=== PATIENT | male | born 1995 | race Caucasian/White ===

== ENCOUNTER 2017-08-14 16:31 | Emergency (ER) | payer OTHER ==
--- NOTE | 2017-08-14 17:24 | EDPHYS ---
Physician Documentation [facility] Name: Pedro Wright Age: 22 yrs Sex: Male : 1995 Arrival Date: 08/14/2017 Time: 16:34 Bed 9 Private MD: Jaspal Crouch B ED Physician Jared Rudolph HPI: 08/14 17:15 This 22 yrs old Male presents to ER via Ambulatory with complaints of Male pm1 problems. 17:15 The patient presents with Rash to penis. Onset: The symptoms/episode began/occurred 5 pm1 day(s) ago. Modifying factors: The symptoms are alleviated by nothing, the symptoms are aggravated by nothing. Associated signs and symptoms: Pertinent negatives: abdominal pain, dysuria, fever, penile discharge. The patient has not experienced similar symptoms in the past. The patient has not recently seen a physician. Patient with same sexual partner. Patient shaved pubic hairs 7 days ago. Reports 5 total blisters present to shaft of penis that appeared 5 days ago. Blisters painful and appeared like pimples with clear fluid when they broke. Historical: - Allergies: 16:42 No Known Allergies; aj - Home Meds: 16:42 None [Active]; aj - PMHx: 16:42 None; aj - PSHx: 16:42 Ear SX; aj - Immunization history:: Adult Immunizations up to date. - Social history:: Smoking status: Patient uses tobacco products, smokes one pack cigarettes per day. ROS: 17:15 Constitutional: Negative for fever, chills, and weight loss, Eyes: Negative for injury, pm1 pain, redness, and discharge, ENT: Negative for injury, pain, and discharge, Neck: Negative for injury, pain, and swelling, Cardiovascular: Negative for chest pain, palpitations, and edema, Respiratory: Negative for shortness of breath, cough, wheezing, and pleuritic chest pain, Abdomen/GI: Negative for abdominal pain, nausea, vomiting, diarrhea, and constipation, Back: Negative for injury and pain. 17:15 MS/Extremity: Negative for injury and deformity, Skin: Negative for injury, rash, and discoloration, Neuro: Negative for headache, weakness, numbness, tingling, and seizure. 17:15 : Positive for blisters to penis, Negative for urinary symptoms, burning with urination, penile discharge, testicular pain Exam: 17:15 Constitutional: This is a well developed, well nourished patient who is awake, alert, pm1 and in no acute distress. Head/Face: Normocephalic, atraumatic. Chest/axilla: Normal chest wall appearance and motion. Nontender with no deformity. No lesions are appreciated. Cardiovascular: Regular rate and rhythm with a normal S1 and S2. No gallops, murmurs, or rubs. Normal PMI, no JVD. No pulse deficits. Respiratory: Lungs have equal breath sounds bilaterally, clear to auscultation and percussion. No rales, rhonchi or wheezes noted. No increased work of breathing, no retractions or nasal flaring. Back: No spinal tenderness. No costovertebral tenderness. Full range of motion. Skin: Warm, dry with normal turgor. Normal color with no rashes, no lesions, and no evidence of cellulitis. MS/ Extremity: Pulses equal, no cyanosis. Neurovascular intact. Full, normal range of motion. 17:15 : Male external genitalia: ulceration, of the shaft of penis is present, that is small, without appreciated drainage, 5 crusted small circular lesions, Sexual behavior: the patient is sexually active, and reports a single partner. 17:15 Neuro: Orientation: is normal, Motor: is normal, moves all fours, Gait: is steady, at a normal pace, without difficulty. Vital Signs: 16:42 BP 138 / 75; Pulse 109; Resp 20; Temp 98.4; Pulse Ox 98% on R/A; Weight 90.72 kg; aj Height 5 ft. 11 in. (180.34 cm); 16:42 Body Mass Index 27.89 (90.72 kg, 180.34 cm) aj MDM: 17:05 Patient medically screened. [facility] 17:15 Data reviewed: vital signs. Data interpreted: Pulse oximetry: on room air is 98 %. pm1 Interpretation: normal. Counseling: I had a detailed discussion with the patient and/or guardian regarding: the historical points, exam findings, and any diagnostic results supporting the discharge/admit diagnosis, the need for outpatient follow up, a family practitioner, STD clinic, to return to the emergency department if symptoms worsen or persist or if there are any questions or concerns that arise at home. Administered Medications: No medications were administered Disposition: 08/14/17 17:23 Discharged to Home. 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 - Condition is Stable. - Discharge Instructions: Genital Herpes, Sexually Transmitted Disease. - Prescriptions for Acyclovir 400 mg Oral Tablet - take 1 tablet by ORAL route every 8 hours; 30 tablet. Tylenol- Codeine #3 300-30 mg Oral Tablet - take 2 tablets by ORAL route every 6 hours As needed; 20 tablet. - Medication Reconciliation Form, Thank You Letter, Antibiotic Education, Prescription Opioid Use form. - Follow up: Emergency Department; When: As needed; Reason: Worsening of condition. Follow up: Private Physician; When: 2 - 3 days; Reason: Recheck today's complaints, Continuance of care, Re-evaluation by your physician. - Problem is new. - Symptoms have improved. Addendum: 08/17/2017 08:49 Co-signature as Attending Physician, Jared Rudolph MD I agree with the assessment and c velasquez plan of care. Signatures: Laura Henry, RN Jared Grier MD MD cha Marinas, Patrick, GINGER BEHAVIORAL THERAPY COORDINATOR pm1 Santo Quintero RN RN mb3 Corrections: (The following items were deleted from the chart) 08/14 17:36 17:23 08/14/2017 17:23 Discharged to Home. Impression: Herpesviral infection of other mb3 male genital organs. Condition is Stable. Forms are Medication Reconciliation Form, Thank You Letter, Antibiotic Education, Prescription Opioid Use. Follow up: Emergency Department; When: As needed; Reason: Worsening of condition. Follow up: Private Physician; When: 2 - 3 days; Reason: Recheck today's complaints, Continuance of care, Re-evaluation by your physician. Problem is new. Symptoms have improved. pm1
--- NOTE | 2017-08-14 17:24 | ER ---
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 aj Transition of care: patient was not received from another setting of care. Onset of symptoms was August 12, 2017. Care prior to arrival: None. 16:41 Method Of Arrival: Ambulatory 16:41 Acuity: PEDRO 4 aj 17:35 Initial Sepsis Screen: Does the patient meet any 2 criteria? No. Patient's initial mb3 sepsis screen is negative. Does the patient have a suspected source of infection? No. Patient's initial sepsis screen is negative. Triage Assessment: 16:42 General: Appears in no apparent distress. comfortable, Behavior is calm, cooperative, aj appropriate for age. Pain: Complains of pain in head of penis. Neuro: Level of Consciousness is awake, alert, obeys commands, Oriented to person, place, time, situation, Appropriate for age. Respiratory: Airway is patent Respiratory effort is even, unlabored, Respiratory pattern is regular, symmetrical. Derm: Skin is intact, is healthy with good turgor, Skin is pink, warm \T\ dry. normal. 16:42 : Reports rash to penis. Derm:. aj Historical: - Allergies: 16:42 No Known Allergies; aj - Home Meds: 16:42 None [Active]; aj - PMHx: 16:42 None; aj - PSHx: 16:42 Ear SX; aj - Immunization history:: Adult Immunizations up to date. - Social history:: Smoking status: Patient uses tobacco products, smokes one pack cigarettes per day. Screenin:34 Abuse screen: Denies threats or abuse. Nutritional screening: No deficits noted. mb3 Tuberculosis screening: No symptoms or risk factors identified. Fall Risk None identified. Assessment: 17:32 General: Appears in no apparent distress. comfortable, Behavior is calm, cooperative, mb3 appropriate for age. Pain: Complains of pain in head of penis Pain currently is 4 out of 10 on a pain scale. Neuro: No deficits noted. Cardiovascular: No deficits noted. Respiratory: No deficits noted. GI: No deficits noted. No signs and/or symptoms were reported involving the gastrointestinal system. : Blisters noted Lesions noted. Vital Signs: 16:42 BP 138 / 75; Pulse 109; Resp 20; Temp 98.4; Pulse Ox 98% on R/A; Weight 90.72 kg; aj Height 5 ft. 11 in. (180.34 cm); 16:42 Body Mass Index 27.89 (90.72 kg, 180.34 cm) ED Course: 16:34 Patient arrived in ED. mr 16:35 Jaspal Crouch MD is Private Physician. mr 16:41 Triage completed. aj 16:42 Arm band placed on right wrist. Patient placed in waiting room, Patient notified of wait time. 16:58 Santo Quintero RN is Primary Nurse. mb3 17:05 Po Quiles NP is PHCP. pm1 17:05 Jared Rudolph MD is Attending Physician. pm1 17:35 Patient has correct armband on for positive identification. Bed in low position. Call mb3 light in reach. 17:35 No provider procedures requiring assistance completed. Patient did not have IV access mb3 during this emergency room visit. Administered Medications: No medications were administered Outcome: 17:23 Discharge ordered by . pm1 17:35 Discharged to home ambulatory. mb3 17:35 Condition: stable 17:35 Discharge instructions given to patient, Instructed on discharge instructions, follow up and referral plans. medication usage, Demonstrated understanding of instructions, follow-up care, medications, Prescriptions given X 2. 17:36 Patient left the ED. mb3 Signatures: Laura Henry, Clover Bassett RN mr Po Quiles, GINGER C WEB DEVELOPER pm1 Santo Quintero RN RN mb3
== END 2017-08-14 17:36 | disposition home or self-care (01) ==
LOC: ER 16:31
DX: A60.02 Herpesviral infection of other male genital organs (principal); F17.210 Nicotine dependence, cigarettes, uncomplicated
CPT/HCPCS: 99282

== ENCOUNTER 2017-08-28 07:31 | Observation (INO) | payer OTHER ==
[2017-08-28] MEDS ORDERED: MORPHINE 4 MG/ML SYR ONE (07:45)
[2017-08-28] MEDS ORDERED: NA CHLORIDE 0.9% 1,000 ML ONE (07:45)
[2017-08-28] MEDS ORDERED: ONDANSETRON 4 MG/2 ML VIAL ONE ×2 (07:46→12:21)
[2017-08-28 08:08] LABS: Absolute Lymphocytes (CBC) 1.5 K/uL (0.7-4.9); Absolute Monocytes 0.9 K/uL (0.1-1.3); Absolute Neutrophil 14.5 K/uL (1.8-8.0); Eosinophils % 1.3 % (0-4.4); Lymphocytes % 8.4 % (15.3-44.8); MCH 29.8 pg (27.0-35.0); MCV 85.6 fL (80-100); MPV 9.6 fL (7.6-11.3); Monocytes % 5.1 % (3.3-12.3); RBC Red Blood Cell Count 5.73 M/uL (4.33-5.43)
[2017-08-28 08:25] LABS: Albumin 4.8 g/dL (3.2-5.5); Bilirubin Direct 0.1 mg/dL (0-0.2); Bilirubin Total 0.6 mg/dL (0.3-1.2); Protein, Total 8.7 g/dL (6.0-8.3)
--- NOTE | 2017-08-28 09:06 | RAD REPORT ---
EXAM DESCRIPTION: CT - Abdomen Pelvis W Contrast - 08/28/2017 8:46 am CLINICAL HISTORY: Abdominal pain, nausea vomiting and diarrhea COMPARISON: CT study May 2007 TECHNIQUE: Biphasic, helical CT imaging of the abdomen and pelvis was performed following 100 ml non -ionic IV contrast. No oral contrast was given. All CT scans are performed using dose optimization technique as appropriate and may include automated exposure control or mA/KV adjustment according to patient size. FINDINGS: No suspicious findings in the lung bases. The liver, spleen, and pancreas show no suspicious findings. Gallbladder and biliary tree are also wi thout suspicious finding. Symmetric renal function is seen with no hydronephrosis or suspicious renal mass. No adrenal abnormal ity. Urinary bladder shows no suspicious findings. Prostate gland and seminal vesicles normal range. Fluid-filled stomach is present normal in size. No wall thickening or mass. Duodenum and jejunum show no suspicious findings. There are prominent loops of proximal ileum distended to 2.6 cm. Long segmen t of distal ileum and terminal ileum show fecalized bowel content with mild wall thickening. Minimal amount of fluid is seen near the terminal ileum extending into the lower right pelvis. The appendix i s normal. Guido of the involved terminal ileum are slightly thickened. No primary colon process ident ified. No free air or pneumatosis. No hernia, mass or bulky lymphadenopathy. No suspicious bony findings. IMPRESSION: Nonspecific ileitis pattern. There are distended proximal loops of ileum with long segme nt of distal ileum/ terminal ileum showing fecalized bowel content, wall thickening and adjacent mohsen atous/ inflammatory stranding. The appendix is normal and no primary colon, jejunum, duodenum or stomach process seen.
--- NOTE | 2017-08-28 09:26 | EDPHYS ---
Physician Documentation [facility] Name: Pedro Wright Age: 22 yrs Sex: Male : 1995 Arrival Date: 08/28/2017 Time: 07:35 Bed 14 Private MD: Jaspal Crouch B ED Physician Aaron Silver HPI: 08/28 07:42 This 22 yrs old Male presents to ER via Unassigned with complaints of kb Abdominal Pain, Vomiting. 07:42 The patient presents with abdominal pain that is diffuse. Onset: The symptoms/episode kb began/occurred yesterday. The symptoms do not radiate. Associated signs and symptoms: Pertinent positives: nausea, vomiting, and diarrhea, Pertinent negatives: anorexia, blood in stools, chest pain, constipation, dysuria, fever, headache, hematuria, palpitations, shortness of breath, testicular pain, vomiting blood. The symptoms are described as achy. Modifying factors: The symptoms are alleviated by nothing, the symptoms are aggravated by nothing. Severity of pain: At its worst the pain was moderate in the emergency department the pain is unchanged. The patient has not experienced similar symptoms in the past. The patient has not recently seen a physician. Historical: - Allergies: 07:44 NKA; iw - Home Meds: 07:44 None [Active]; iw - PMHx: 07:44 None; iw - PSHx: 07:44 Ear SX; iw - Immunization history:: Adult Immunizations unknown. - Social history:: Smoking status: Patient/guardian denies using tobacco. - Ebola Screening: : No symptoms or risks identified at this time. ROS: 07:42 Constitutional: Negative for fever, chills, and weight loss, ENT: Negative for injury, kb pain, and discharge, Neck: Negative for injury, pain, and swelling, Cardiovascular: Negative for chest pain, palpitations, and edema, Respiratory: Negative for shortness of breath, cough, wheezing, and pleuritic chest pain, Back: Negative for injury and pain, : Negative for injury, bleeding, discharge, and swelling, MS/Extremity: Negative for injury and deformity, Skin: Negative for injury, rash, and discoloration, Neuro: Negative for headache, weakness, numbness, tingling, and seizure. 07:42 Abdomen/GI: Positive for abdominal pain, nausea, vomiting, and diarrhea, Negative for constipation, abdominal cramps, abdominal distension, anorexia. Exam: 07:42 Constitutional: This is a well developed, well nourished patient who is awake, alert, kb and in no acute distress. Head/Face: Normocephalic, atraumatic. Chest/axilla: Normal chest wall appearance and motion. Nontender with no deformity. No lesions are appreciated. Cardiovascular: Regular rate and rhythm with a normal S1 and S2. No gallops, murmurs, or rubs. Normal PMI, no JVD. No pulse deficits. Respiratory: Lungs have equal breath sounds bilaterally, clear to auscultation and percussion. No rales, rhonchi or wheezes noted. No increased work of breathing, no retractions or nasal flaring. Back: No spinal tenderness. No costovertebral tenderness. Full range of motion. Skin: Warm, dry with normal turgor. Normal color with no rashes, no lesions, and no evidence of cellulitis. MS/ Extremity: Pulses equal, no cyanosis. Neurovascular intact. Full, normal range of motion. Neuro: Awake and alert, GCS 15, oriented to person, place, time, and situation. Cranial nerves II-XII grossly intact. Motor strength 5/5 in all extremities. Sensory grossly intact. Cerebellar exam normal. Normal gait. 07:42 Abdomen/GI: Inspection: abdomen appears normal, Bowel sounds: normal, in all quadrants, Palpation: soft, in all quadrants, moderate abdominal tenderness, in all quadrants. Vital Signs: 07:44 BP 146 / 90; Pulse 94; Resp 18 S; Temp 97.8; Pulse Ox 100% on R/A; Weight 90.72 kg; iw Height 5 ft. 11 in. (180.34 cm); Pain 9/10; 08:48 BP 148 / 87; Pulse 74; Resp 18; Pulse Ox 99% on R/A; Pain 4/10; ph 12:05 BP 141 / 81; Pulse 73; Resp 19; Pulse Ox 99% on R/A; aj 07:44 Body Mass Index 27.89 (90.72 kg, 180.34 cm) iw MDM: 07:37 Patient medically screened. kb 07:42 Data reviewed: vital signs, nurses notes. Data interpreted: Pulse oximetry: on room air kb is 100 %. Interpretation: normal. 09:23 Counseling: I had a detailed discussion with the patient and/or guardian regarding: the kb historical points, exam findings, and any diagnostic results supporting the discharge/admit diagnosis, lab results, radiology results, the need for further work-up and treatment in the hospital. 08/28 07:41 Order name: Amylase, Serum; Complete Time: 08:28 kb 08/28 07:41 Order name: Basic Metabolic Panel; Complete Time: 08:28 kb 08/28 07:41 Order name: CBC with Diff; Complete Time: 08:28 kb 08/28 07:41 Order name: Hepatic Function; Complete Time: 08:28 kb 08/28 07:41 Order name: Lipase; Complete Time: 08:28 kb 08/28 09:29 Order name: Blood Culture Adult (2) kb 08/28 07:41 Order name: IV Saline Lock; Complete Time: 08:01 kb 08/28 07:41 Order name: CT Abd/Pelvis - W/Contrast; Complete Time: 09:17 kb 08/28 07:41 Order name: Labs collected and sent; Complete Time: 08:01 kb Administered Medications: 07:55 Drug: NS 0.9% 1000 ml Route: IV; Rate: 1000 ml; Site: right antecubital; ph 12:15 Follow up: Response: No adverse reaction; IV Status: Completed infusion; IV Intake: aj 1000ml 07:55 Drug: Zofran 4 mg Route: IVP; Site: right antecubital; ph 12:14 Follow up: Response: No adverse reaction aj 12:15 Follow up: Response: No adverse reaction aj 07:55 Drug: morphine 4 mg Route: IVP; Site: right antecubital; ph 12:13 Follow up: Response: Pain is decreased aj 10:00 Drug: Nicotine 21 mg/24 hr 1 patches Route: Transdermal; Site: affected area; aj 10:05 Drug: Cipro 400 mg Volume: 200 ml; Route: IVPB; Infused Over: 60 mins; Site: right aj antecubital; 12:14 Follow up: Response: No adverse reaction; IV Status: Completed infusion; IV Intake: aj 200ml 10:06 Drug: Flagyl 500 mg Volume: 100 ml; Route: IVPB; Rate: 200 ml/hr; Infused Over: 30 aj mins; Site: right antecubital; 12:15 Follow up: Response: No adverse reaction; IV Status: Completed infusion; IV Intake: aj 100ml Disposition: 08/28/17 09:25 Hospitalization ordered by Buck Crabtree for Observation. Preliminary diagnosis are Generalized abdominal pain - ileitis, Nausea with vomiting, unspecified. - Bed requested for Telemetry/MedSurg (observation). - Status is Observation. aj - Condition is Stable. - Problem is new. - Symptoms are unchanged. UTI on Admission? No Addendum: 09/01/2017 07:14 Co-signature as Attending Physician, Aaron Silver MD. g s Signatures: Dispatcher [employer] EDMS Salma Mcfarland, TECHNICAL SOLUTION ARCHITECT-C TECHNICAL SOLUTION ARCHITECT-Ckb Brianna Beckman, RN RN Laura Swift, RN Genoveva Gomez, RN BENSON Missy Caldera, RN RN mavis Silver, MD WAN Walker Corrections: (The following items were deleted from the chart) 08/28 11:33 09:25 Hospitalization Ordered by Buck Crabtree DO for Observation. Preliminary dw diagnosis is Generalized abdominal pain - ileitis; Nausea with vomiting, unspecified. Bed requested for Telemetry/MedSurg (observation). Status is Observation. Condition is Stable. Problem is new. Symptoms are unchanged. UTI on Admission? No. kb 12:24 11:33 08/28/2017 09:25 Hospitalization Ordered by Buck Crabtree DO for Observation. aj Preliminary diagnosis is Generalized abdominal pain - ileitis; Nausea with vomiting, unspecified. Bed requested for Telemetry/MedSurg (observation). Status is Observation. Condition is Stable. Problem is new. Symptoms are unchanged. UTI on Admission? No. dw
--- NOTE | 2017-08-28 09:26 | ER ---
Nurse's Notes [facility] Name: Pedro Wright Age: 22 yrs Sex: Male : 1995 Arrival Date: 08/28/2017 Time: 07:35 Bed 14 Private MD: Jaspal Crouch B Diagnosis: Generalized abdominal pain-ileitis;Nausea with vomiting, unspecified Presentation: 08/28 07:40 Presenting complaint: Patient states: has had abd pain, nausea, vomiting, diarrhea iw since last night. Transition of care: patient was not received from another setting of care. Onset of symptoms was August 27, 2017. Risk Assessment: Do you want to hurt yourself or someone else? Patient reports no desire to harm self or others. Initial Sepsis Screen: Does the patient meet any 2 criteria? No. Patient's initial sepsis screen is negative. Does the patient have a suspected source of infection? No. Patient's initial sepsis screen is negative. Care prior to arrival: None. 07:40 Method Of Arrival: Ambulatory iw 07:40 Acuity: PEDRO 3 iw Historical: - Allergies: 07:44 NKA; iw - Home Meds: 07:44 None [Active]; iw - PMHx: 07:44 None; iw - PSHx: 07:44 Ear SX; iw - Immunization history:: Adult Immunizations unknown. - Social history:: Smoking status: Patient/guardian denies using tobacco. - Ebola Screening: : No symptoms or risks identified at this time. Screenin:57 Abuse screen: Denies threats or abuse. Denies injuries from another. Nutritional ph screening: No deficits noted. Tuberculosis screening: No symptoms or risk factors identified. Fall Risk None identified. Assessment: 07:52 General: Appears in no apparent distress. uncomfortable, slender, Behavior is ph cooperative, anxious, Denies fever. Pain: Complains of pain in right lower quadrant and left lower quadrant Pain currently is 8 out of 10 on a pain scale. Quality of pain is described as sharp, stabbing, Pain began "last night". Neuro: Level of Consciousness is awake, alert, obeys commands, Oriented to person, place, time, situation. Cardiovascular: Capillary refill < 3 seconds Patient's skin is warm and dry. Respiratory: Airway is patent Respiratory effort is even, unlabored, Respiratory pattern is regular, symmetrical. GI: Abdomen is flat, non-distended, Bowel sounds present X 4 quads. Abd is soft X 4 quads Abdomen is tender to palpation X 4 quads. Reports lower abdominal pain, diarrhea, nausea, vomiting. : No signs and/or symptoms were reported regarding the genitourinary system. Derm: Skin is intact, is healthy with good turgor, Skin is pink, warm \\T\\ dry. Musculoskeletal: Circulation, motion, and sensation intact. Range of motion: intact in all extremities. 08:47 Reassessment: Patient appears in no apparent distress at this time. Patient and/or ph family updated on plan of care and expected duration. Pain level reassessed. Patient is alert, oriented x 3, equal unlabored respirations, skin warm/dry/pink. Pt reports that pain has improved to 4/10 after pain medication, denies nausea at this time, taken for CT via wheelchair, family at bedside. 10:07 General: Appears in no apparent distress. comfortable, Behavior is calm, cooperative, aj appropriate for age. Pain: Complains of pain in left lower quadrant and right lower quadrant. Neuro: Level of Consciousness is awake, alert, obeys commands, Oriented to person, place, time, situation. Respiratory: Airway is patent Respiratory effort is even, unlabored, Respiratory pattern is regular, symmetrical. GI: Abdomen is flat, non-distended, Reports lower abdominal pain, diarrhea, nausea. Derm: Skin is intact, is healthy with good turgor, Skin is pink, warm \\T\\ dry. normal. Vital Signs: 07:44 BP 146 / 90; Pulse 94; Resp 18 S; Temp 97.8; Pulse Ox 100% on R/A; Weight 90.72 kg; iw Height 5 ft. 11 in. (180.34 cm); Pain 9/10; 08:48 BP 148 / 87; Pulse 74; Resp 18; Pulse Ox 99% on R/A; Pain 4/10; ph 12:05 BP 141 / 81; Pulse 73; Resp 19; Pulse Ox 99% on R/A; aj 07:44 Body Mass Index 27.89 (90.72 kg, 180.34 cm) iw ED Course: 07:35 Patient arrived in ED. sb2 07:35 Jaspal Crouch MD is Private Physician. sb2 07:37 Salma Mcfarland FNP-C is PHCP. kb 07:37 Aaron Silver MD is Attending Physician. kb 07:42 Triage completed. iw 07:44 Arm band placed on. iw 07:52 Missy Caldera, RN is Primary Nurse. ph 07:57 Initial lab(s) drawn, by me, sent to lab. Inserted saline lock: 20 gauge in right ph antecubital area, using aseptic technique. Blood collected. 07:58 Patient has correct armband on for positive identification. Placed in gown. Bed in low ph position. Pulse ox on. NIBP on. Warm blanket given. 08:09 Radiology exam delayed due to lab results not completed at this time. (BUN/Creatinine). eh 08:44 CT completed. Patient tolerated procedure well. Patient moved to CT via wheelchair. sj Patient moved back from CT. 08:45 CT Abd/Pelvis - W/Contrast In Process Unspecified. EDMS 09:24 Buck Crabtree DO is Hospitalizing Provider. kb 10:33 Primary Nurse role handed off by Missy Caldera, BENSON aj 10:33 Laura Henry RN is Primary Nurse. aj 12:16 No provider procedures requiring assistance completed. Patient admitted, IV remains in aj place. intact. Administered Medications: 07:55 Drug: NS 0.9% 1000 ml Route: IV; Rate: 1000 ml; Site: right antecubital; ph 12:15 Follow up: Response: No adverse reaction; IV Status: Completed infusion; IV Intake: aj 1000ml 07:55 Drug: Zofran 4 mg Route: IVP; Site: right antecubital; ph 12:14 Follow up: Response: No adverse reaction aj 12:15 Follow up: Response: No adverse reaction aj 07:55 Drug: morphine 4 mg Route: IVP; Site: right antecubital; ph 12:13 Follow up: Response: Pain is decreased aj 10:00 Drug: Nicotine 21 mg/24 hr 1 patches Route: Transdermal; Site: affected area; aj 10:05 Drug: Cipro 400 mg Volume: 200 ml; Route: IVPB; Infused Over: 60 mins; Site: right aj antecubital; 12:14 Follow up: Response: No adverse reaction; IV Status: Completed infusion; IV Intake: aj 200ml 10:06 Drug: Flagyl 500 mg Volume: 100 ml; Route: IVPB; Rate: 200 ml/hr; Infused Over: 30 aj mins; Site: right antecubital; 12:15 Follow up: Response: No adverse reaction; IV Status: Completed infusion; IV Intake: aj 100ml Intake: 12:14 IV: 200ml; Total: 200ml. aj 12:15 IV: 1000ml; Total: 1200ml. aj 12:15 IV: 100ml; Total: 1300ml. aj Outcome: 09:25 Decision to Hospitalize by Provider. kb 12:16 Discharged to home ambulatory. aj 12:16 Condition: good 12:16 Instructed on the need for admit, Demonstrated understanding of instructions. 12:24 Patient left the ED. aj Signatures: Dispatcher [employer] EDSalma Turpin, RN RADIATION-C RN RADIATION-Laura Greene, RN Casimiro Vilchis Susan sj Williams, Irene RN BENSON Missy Caldera RN BENSON Albert, Jena [email or web address]
[2017-08-28] MEDS ORDERED: NICOTINE 21 MG/PAT TD ONE (09:51)
[2017-08-28] MEDS ORDERED: CIPROFLOXACIN 400mg IV 400 MG/200 ML BAG IV ONE (09:51)
[2017-08-28] MEDS ORDERED: METRONIDAZOLE 500mg IVPB 500 MG/100 ML BAG IV ONE (09:51)
--- NOTE | 2017-08-28 10:00 | P.HP ---
Certification for Inpatient Patient admitted to: Observation With expected LOS: <2 Midnights Patient will require the following post-hospital care: None Practitioner: I am a practitioner with admitting privileges, knowledge of patient current condition, hospital course, and medical plan of care. Services: Services provided to patient in accordance with Admission requirements found in Title 42 Section 412.3 of the Code of Federal Regulations <Lit Cano - Last Filed: 08/28/17 09:55> Patient admitted to: Observation With expected LOS: <2 Midnights Patient will require the following post-hospital care: None Practitioner: I am a practitioner with admitting privileges, knowledge of patient current condition, hospital course, and medical plan of care. Services: Services provided to patient in accordance with Admission requirements found in Title 42 Section 412.3 of the Code of Federal Regulations <Buck Crabtree - Last Filed: 08/28/17 14:38> Patient History Date of Service: 08/28/17 Primary Care Provider: Miko Reason for admission: Gertrudis History of Present Illness: This is a 22 y/o M that presented to the ED with complaints of nausea, vomiting , diarrhea, and abdominal pain that started last night. Stated that he could not keep anything down. Pain persisted without relief. In room patient hemodynamically stable. WBC of 17.4. Persistent pain in ED. Pain medication given. Denies blood or mucous in stool. Denies hematemesis. Moderate Ileitis noted on CT scan without abscess or perforation. No other acute findings. Home medications list reviewed: Yes - Past Medical/Surgical History Has patient received pneumonia vaccine in the past: No Diabetic: No Past Medical History: Patient denies medical history Past Surgical History: Patient denies surgical history - Social History Smoking Status: Heavy Tobacco smoker (>10 cigarettes/day) Counseled patient to stop smoking for: less than 10 minutes Smoking therapy provided: Yes Patient receptive to therapy: No Alcohol use: No CD- Drugs: No Caffeine use: Yes Place of Residence: Home <Geni Canoshua - Last Filed: 08/28/17 09:55> Date of Service: 08/28/17 Home medications list reviewed: Yes - Past Medical/Surgical History Diabetic: No Past Medical History: Patient denies medical history Past Surgical History: Patient denies surgical history Psychosocial/ Personal History: Unremarkable. - Family History Family History: Reviewed- Non-Contributory - Family History Mother History Unknown: Yes - Social History Smoking Status: Heavy Tobacco smoker (>10 cigarettes/day) Counseled patient to stop smoking for: less than 10 minutes Smoking therapy provided: Yes Patient receptive to therapy: No Alcohol use: No CD- Drugs: No Caffeine use: Yes Place of Residence: Home <Buck Crabtree - Last Filed: 08/28/17 14:38> Allergies No Known Drug Allergies Allergy (Unverified 08/20/14 05:21) Unknown No Known Lionel Allergy (Uncoded 08/25/16 14:46) Unknown No Known Allergies Allergy (Uncoded 08/14/17 17:40) Unknown Review of Systems General: Unremarkable Eyes: Unremarkable ENT: Unremarkable Respiratory: Unremarkable Cardiovascular: Unremarkable Gastrointestinal: Nausea, Vomiting, Abdominal Pain, Diarrhea, As per HPI Genitourinary: Unremarkable Musculoskeletal: Unremarkable Integumentary: Unremarkable Neurological: Unremarkable Lymphatics: Unremarkable <Lit Cano - Last Filed: 08/28/17 09:55> Physical Examination - Vital Signs Temperature: 97.8 F Blood Pressure: 148/87 Pulse: 74 Respirations: 18 Pulse Ox (%): 99 - Physical Exam General: Alert, In no apparent distress, Oriented x3, Cooperative HEENT: Normocephalic, PERRLA, Mucous membr. moist/pink Neck: Supple, 2+ carotid pulse no bruit, JVD not distended, No Thyromegaly, No LAD Respiratory: Clear to auscultation bilaterally, Normal air movement Cardiovascular: No edema, Normal pulses, Regular rate/rhythm, Normal S1 S2, No gallops, No rubs, No murmurs Capillary refill: <2 Seconds Gastrointestinal: Normal bowel sounds, Non-distended, No ascites, Tenderness ( Moderate tenderness to mid abdomen ) Musculoskeletal: No clubbing, No swelling, No contractures, No erythema, No tenderness, No warmth Integumentary: No rashes, No breakdown, No significant lesion, No tenderness/ swelling, No erythema, No warmth, No cyanosis Neurological: Normal gait, Normal speech, Normal strength at 5/5 x4 extr, Normal tone, Sensation intact, Cranial nerves 3-12 intact, Normal reflexes 2+, Normal affect - Studies Laboratory Data (last 24 hrs) 08/28/17 07:45: WBC 17.4 H, Hgb 17.1, Hct 49.0, Plt Count 331 08/28/17 07:45: Sodium 138, Potassium 4.0, BUN 19, Creatinine 1.20, Glucose 113 , Total Bilirubin 0.6, AST 20, ALT 21, Alkaline Phosphatase 75, Amylase 35, Lipase 21 L <JosiejacoboGeni gutierrezLit - Last Filed: 08/28/17 09:55> - Studies Laboratory Data (last 24 hrs) 08/28/17 07:45: WBC 17.4 H, Hgb 17.1, Hct 49.0, Plt Count 331 08/28/17 07:45: Sodium 138, Potassium 4.0, BUN 19, Creatinine 1.20, Glucose 113 , Total Bilirubin 0.6, AST 20, ALT 21, Alkaline Phosphatase 75, Amylase 35, Lipase 21 L <Buck Crabtree - Last Filed: 08/28/17 14:38> Assessment and Plan - Problems (Diagnosis) (1) Ileitis Current Visit: Yes Status: Acute Plan: Pain management and IV antibiotics. Clear liquid diet and advance as tolerated. If patient feels better in the AM and WBC decreases and without acute abdominal findings, will send home on antibiotics and pain medication with follow to GI Discharge Plan: Home Plan to discharge in: 24 Hours - Advance Directives Does patient have a Living Will: No Does patient have a Durable POA for Healthcare: No - Code Status/Comfort Care Code Status Assessed: Yes Code Status: Full Code <Lit Cano - Last Filed: 08/28/17 09:55> - Problems (Diagnosis) (1) Tobacco abuse Current Visit: Yes Status: Chronic Plan: Will address lifestyle modification education and tobacco cessation Discharge Plan: Home Plan to discharge in: 24 Hours - Code Status/Comfort Care Code Status Assessed: Yes Code Status: Full Code Physician Review: Patient Assessed, Agree with Above Assessment and Plan Time Spent Managing Pts Care (In Minutes): 55 <Buck Crabtree - Last Filed: 08/28/17 14:38>
[2017-08-28] MEDS ORDERED: ONDANSETRON 4 MG/2 ML VIAL IV PRN (11:08)
[2017-08-28] MEDS ORDERED: HYDROCODONE/APAP 5/325 MG TAB PO PRN (11:08)
[2017-08-28] MEDS ORDERED: NA CHLORIDE 0.9% 1,000 ML IV SCH (11:08)
[2017-08-28] MEDS ORDERED: ACETAMINOPHEN 500 MG TAB PO PRN (11:08)
[2017-08-28] MEDS: Morphine 2 MG/2 ML SYR IV PRN ×2 (12:59→17:50)
[2017-08-28] MEDS: NA CHLORIDE 0.9% 1,000 ML IV SCH ×2 (15:00→22:47)
[2017-08-28] MEDS: DICYCLOMINE HCL 10 MG CAP PO SCH ×2 (15:16→20:44)
[2017-08-28] MEDS ORDERED: PROMETHAZINE 25 MG/ML VIAL IV PRN (16:42)
[2017-08-28] MEDS ORDERED: ENOXAPARIN 40 MG/0.4 ML SQ SCH (17:00)
[2017-08-28] MEDS ORDERED: PROMETHAZINE 25 MG/ML VIAL ONE (17:03)
[2017-08-28] MEDS: METRONIDAZOLE 500mg IVPB 500 MG/100 ML BAG IV SCH (17:05)
--- NOTE | 2017-08-28 17:35 | RAD REPORT ---
EXAM DESCRIPTION: RAD - Abdomen 1 View (KUB) - 08/28/2017 5:26 pm CLINICAL HISTORY: Abdominal pain, vomiting COMPARISON: CT study August 28 FINDINGS: Multiple prominent distal small bowel loops are present matching the CT study. Colon is no t dilated. No free air or pneumatosis. Contrast is present in the urinary bladder from the earlier CT study. No suspicious calcifications. No significant bony findings IMPRESSION: Prominent distal small bowel pattern matching the CT study. Ileitis remains the primary consideration. No bowel obstruction, free air or surgically emergent finding.
[2017-08-28] MEDS: CIPROFLOXACIN 400mg IV 400 MG/200 ML BAG IV SCH (20:43)
[2017-08-29] MEDS: METRONIDAZOLE 500mg IVPB 500 MG/100 ML BAG IV SCH ×2 (00:22→05:04)
[2017-08-29 05:20] LABS: Absolute Lymphocytes (CBC) 2.9 K/uL (0.7-4.9); Absolute Monocytes 0.8 K/uL (0.1-1.3); Absolute Neutrophil 6.6 K/uL (1.8-8.0); Basophils % 0.5 % (0-1.3); Eosinophils % 1.1 % (0-4.4); Hematocrit 41.9 % (39.6-49.0); Lymphocytes % 27.6 % (15.3-44.8); MCH 29.8 pg (27.0-35.0); MCV 87.9 fL (80-100); MPV 9.7 fL (7.6-11.3); Monocytes % 7.6 % (3.3-12.3); RBC Red Blood Cell Count 4.76 M/uL (4.33-5.43)
[2017-08-29 05:59] LABS: Albumin 3.4 g/dL (3.2-5.5); Bilirubin Direct 0.1 mg/dL (0-0.2); Bilirubin Total 0.7 mg/dL (0.3-1.2); Potassium 3.8 mEq/L (3.6-5.0); Protein, Total 6.2 g/dL (6.0-8.3)
[2017-08-29] MEDS: NA CHLORIDE 0.9% 1,000 ML IV SCH (07:00)
[2017-08-29] MEDS ORDERED: PANTOPRAZOLE 40MG TABLET PO SCH (07:30)
[2017-08-29] MEDS: DICYCLOMINE HCL 10 MG CAP PO SCH (09:00)
[2017-08-29] MEDS: CIPROFLOXACIN 400mg IV 400 MG/200 ML BAG IV SCH (09:10)
--- NOTE | 2017-08-29 09:46 | P.DS ---
Admission Date: 08/28/17 Discharge Date: 08/29/17 Primary Care Provider: Dr. Crouch Disposition: ROUTINE DISCHARGE Discharge Condition: GOOD Reason for Admission: Ilietis Consultations: Surgery-Dr. Campbell Procedures: CT scan: FINDINGS: No suspicious findings in the lung bases. The liver, spleen, and pancreas show no suspicious findings. Gallbladder and biliary tree are also without suspicious finding. Symmetric renal function is seen with no hydronephrosis or suspicious renal mass. No adrenal abnormality. Urinary bladder shows no suspicious findings. Prostate gland and seminal vesicles normal range. Fluid-filled stomach is present normal in size. No wall thickening or mass. Duodenum and jejunum show no suspicious findings. There are prominent loops of proximal ileum distended to 2.6 cm. Long segment of distal ileum and terminal ileum show fecalized bowel content with mild wall thickening. Minimal amount of fluid is seen near the terminal ileum extending into the lower right pelvis. The appendix is normal. Guido of the involved terminal ileum are slightly thickened. No primary colon process identified. No free air or pneumatosis. No hernia, mass or bulky lymphadenopathy. No suspicious bony findings. IMPRESSION: Nonspecific ileitis pattern. There are distended proximal loops of ileum with long segment of distal ileum/ terminal ileum showing fecalized bowel content, wall thickening and adjacent edematous/ inflammatory stranding. The appendix is normal and no primary colon, jejunum, duodenum or stomach process seen. - Problems (1) Tobacco abuse Current Visit: Yes Status: Chronic (2) Abdominal pain Current Visit: Yes Status: Acute Qualifiers: Abdominal location: epigastric Qualified Code(s): R10.13 - Epigastric pain (3) Nausea and vomiting Current Visit: Yes Status: Acute Qualifiers: Vomiting type: unspecified Vomiting Intractability: unspecified Qualified Code(s): R11.2 - Nausea with vomiting, unspecified (4) Ileitis Current Visit: Yes Status: Acute (5) Dehydration Current Visit: Yes Status: Acute Brief History of Present Illness: 22-year-old male present emergency room with abdominal pain, nausea and vomiting. Patient had food from a local restaurant. Patient was evaluated in the emergency room. Patient found to have ileitis. Patient was admitted for observation. Hospital Course: During the course of his stay his condition improved. Patient was evaluated by surgery. No intervention was needed. At discharge she was able tolerate his diet. At discharge patient will continue with Cipro 500 mg 1 pill twice daily and Flagyl 500 mg 1 pill 3 times a day for 10 days. Patient may continue with a soft diet and advance as tolerated. Patient encouraged to increase oral intake. Patient will need a follow up with his PCP to follow up this hospitalization. Vital Signs/Physical Exam: Temp Pulse Resp BP Pulse Ox 97.5 F 73 16 168/98 H 98 08/29/17 08:00 08/29/17 08:00 08/29/17 08:00 08/29/17 08:00 08/29/17 08:00 General: Alert, In no apparent distress, Oriented x3, Cooperative HEENT: Atraumatic, Mucous membr. moist/pink Neck: Supple Respiratory: Clear to auscultation bilaterally, Normal air movement Cardiovascular: Normal pulses, Regular rate/rhythm Gastrointestinal: Normal bowel sounds, Soft and benign, Non-distended, No ascites, No tenderness, No masses, No rebound, No guarding Musculoskeletal: No erythema, No tenderness, No warmth Integumentary: No tenderness/swelling, No erythema, No warmth, No cyanosis Neurological: Normal speech, Normal strength at 5/5 x4 extr, Normal tone, Normal affect Lymphatics: No axilla or inguinal lymphadenopathy Laboratory Data at Discharge: WBC 10.5 K/uL (4.3-10.9) D 08/29/17 04:28 Hgb 14.2 g/dL (13.6-17.9) D 08/29/17 04:28 Hct 41.9 % (39.6-49.0) 08/29/17 04:28 Plt Count 239 K/uL (152-406) D 08/29/17 04:28 Sodium 139 mEq/L (135-145) 08/29/17 04:28 Potassium 3.8 mEq/L (3.6-5.0) 08/29/17 04:28 BUN 11 mg/dL (6-20) 08/29/17 04:28 Creatinine 1.10 mg/dL (0.61-1.24) 08/29/17 04:28 Glucose 89 mg/dL (65-120) 08/29/17 04:28 Total Bilirubin 0.7 mg/dL (0.3-1.2) 08/29/17 04:28 AST 14 IU/L (10-42) 08/29/17 04:28 ALT 15 IU/L (10-60) 08/29/17 04:28 Alkaline Phosphatase 54 IU/L (42-121) 08/29/17 04:28 Amylase 35 U/L (28-100) 08/28/17 07:45 Lipase 21 U/L (22-51) L 08/28/17 07:45 Home Medications: Ciprofloxacin HCl [Cipro 500 MG Tablet] 500 mg PO BID #20 tab 08/29/17 Metronidazole [Flagyl] 500 mg PO Q8H #30 tablet 08/29/17 New Medications: Ciprofloxacin HCl [Cipro 500 MG Tablet] 500 mg PO BID #20 tab Metronidazole [Flagyl] 500 mg PO Q8H #30 tablet Patient Discharge Instructions: 1. Patient will need a follow up with PCP in 1 week to follow up this hospitalization. 2. Patient presented with abdominal pain, nausea and vomiting. Patient found to have ileitis. At discharge patient able tolerate his diet. At discharge patient will continue with Cipro 500 mg 1 pill twice daily and Flagyl 500 mg 1 pill 3 times a day for 10 days. Recommendation is to continue with oral intake. Patient may continue with a soft diet and advance as tolerated to a regular diet. Diet: GI soft, advanced as tolerated Activity: Ad moustapha Time spent managing pt's care (in minutes): 5
--- NOTE | 2017-08-29 11:57 | CON ---
Date of Consultation: 08/29/2017 Brief History Of Present Illness: The patient is a 22-year-old male, who presents with vicente roximately 2-day history of nausea, vomiting, and bilateral lower quadrant abdominal pain. He states that he ate a triple cheeseburger with toscano the evening before last and noted that shortly after he started developing some nausea and abdominal pain. He had persistent nausea, vomiting, which is a c rescendo-decrescendo type without complete resolution, which was described as crampy muscle and achy type abdominal pain. He states that he further had diarrhea shortly following this and persisted wit h multiple bowel movements throughout the course of the evening and into the next day. He had some s ymptomatic improvement and ate some lasagna the next day when he had symptomatic improvement; however , eating once again caused the nausea and vomiting to return and the diarrhea to return as well. His last bowel movement was the day of admission, which was yesterday and he had 1 episode of nausea, em esis since then. This morning during my examination, he states the pain has almost completely gone. He has no nausea, no vomiting, and has not had any bowel movements, but does pass gas during his adm ission here. He has had a trial of clear liquids, which has gone quite well without incident. 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 Past Surgical History: Excision of the above stated cholesteatoma behind his left ear. Allergies: NO KNOWN DRUG ALLERGIES. Medications: None. Social History: He is a pack per day smoker for multiple years. He denies alcohol or recreational d rug use. 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 Family History: Reviewed and noncontributory. Review of Systems: A 10-point review of systems other than HPI, denies. Physical Examination: Vital Signs: At the time of my examination, his BMI is 27.7. His vital signs; blood pressure 126/69 , pulse is 56, respiratory rate 16, temperature 97.2. General: He is awake, alert, oriented. Psychiatric: He is appropriate, conversive. HEENT: He is normocephalic. His sclerae are anicteric. His mucous membranes are moist. His oropha rynx is clear. Neck: Supple. No JVD. Chest: Normal expansion and excursion. Cardiovascular: Regular rate and rhythm. Pulmonary: Clear to auscultation bilaterally. Abdomen: Soft, nontender, and nondistended. No rebound. No guarding. No focal peritonitis. No he rnias appreciated. Extremities: No clubbing, cyanosis, or edema. Skin: Warm and dry. Laboratory Data: He had a laboratory exam, which this morning was 10.5, down from 17.4 on admission; hemoglobin 14.2; hematocrit 41.9. His neutrophils are normal at 63%, down from 83 on admission. Hi s platelet count was 239. His sodium 139, potassium 3.8, chloride 107, carbon dioxide 27, BUN 11, cr eatinine is 1.1. His glucose is 89. Total bilirubin 0.7, AST 14, ALT 15, alkaline phosphatase is 54 . His lipase on admission was 21. He had imaging performed, which included an abdomen and pelvis CT on 08/28, which was officially read as nonspecific ileitis pattern. There was distended proximal lo ops of ileum with long segments of distal ileum/terminal ileum showing fecalized small bowel content wall thickening, adjacent edematous inflammatory stranding, appendix is normal, and no primary colon, jejunum, duodenum or stomach process is seen. He additionally had a KUB, which corroborated this on 08/28 later on. Assessment And Plan: This is a 22-year-old male, who presents with signs and symptoms of resolving i leitis. 1.IV fluid hydration. 2.Continue clear liquid diet and advance slowly as the patient is able to tolerate. 3.Continue to wean pain medications. 4.When the patient develops bowel function and is tolerating diet, he will be a good candidate to be discharged at that time. He has no surgically emergent findings at this time and I will follow khushboo bautista with you. Thank you for this interesting consult. LUPE/JANNETTE Voice ID: [id number] Report ID: [id number]
== END 2017-08-29 11:35 | disposition home or self-care (01) ==
LOC: ER 07:31 → ERHOLD 09:27 → 2ND 12:17
PROVIDERS: ADMIT Family Medicine; ATTEND Family Medicine
DX: K52.9 Noninfective gastroenteritis and colitis, unspecified (principal); E86.0 Dehydration; F17.210 Nicotine dependence, cigarettes, uncomplicated
CPT/HCPCS: 36415; 74018; 74177; 80048; 80076; 82150; 83690; 85025; 87040; 96361; 96365; 96368; 96375; 99284; G0378; J0744; J1650; J2270; J2405; J2550; J7030; Q9967

== ENCOUNTER 2017-10-23 14:51 | Emergency (ER) | payer OTHER ==
--- NOTE | 2017-10-23 16:01 | EDPHYS ---
Physician Documentation [facility] Name: Pedro Wright Age: 22 yrs Sex: Male : 1995 Arrival Date: 10/23/2017 Time: 14:55 Bed 11 Private MD: Jaspal Crouch B ED Physician Christopher Quiroz HPI: 10/23 16:00 This 22 yrs old Male presents to ER via Ambulatory with complaints of Jaw pm1 Pain. 16:00 The patient presents with pain. The problem is located in the lower left third molar. pm1 Onset: The symptoms/episode began/occurred 2 day(s) ago. Duration: The symptoms are continuous. Modifying factors: The symptoms are alleviated by nothing, the symptoms are aggravated by food. Associated signs and symptoms: Pertinent negatives: fever, inability to eat, nausea, vomiting. Severity of symptoms: in the emergency department the symptoms are actually worse. The patient has not experienced similar symptoms in the past. The patient has not recently seen a physician. Historical: - Allergies: 15:34 NKA; jl7 - Home Meds: 15:34 None [Active]; jl7 - PMHx: 15:34 ADD/ADHD; jl7 - PSHx: 15:34 tumor removal; jl7 - Immunization history:: Adult Immunizations up to date. - Social history:: Smoking status: Patient uses tobacco products, smokes one pack cigarettes per day. - Ebola Screening: : No symptoms or risks identified at this time. ROS: 16:00 Constitutional: Negative for fever, chills, and weight loss, Eyes: Negative for injury, pm1 pain, redness, and discharge, Neck: Negative for injury, pain, and swelling, Cardiovascular: Negative for chest pain, palpitations, and edema, Respiratory: Negative for shortness of breath, cough, wheezing, and pleuritic chest pain, Abdomen/GI: Negative for abdominal pain, nausea, vomiting, diarrhea, and constipation, Back: Negative for injury and pain, MS/Extremity: Negative for injury and deformity, Skin: Negative for injury, rash, and discoloration, Neuro: Negative for headache, weakness, numbness, tingling, and seizure. 16:00 ENT: Positive for dental pain, Negative for sore throat, difficulty swallowing, difficulty handling secretions, hoarseness. Exam: 16:00 Constitutional: This is a well developed, well nourished patient who is awake, alert, pm1 and in no acute distress. Head/Face: Normocephalic, atraumatic. Eyes: Pupils equal round and reactive to light, extra-ocular motions intact. Lids and lashes normal. Conjunctiva and sclera are non-icteric and not injected. Cornea within normal limits. Periorbital areas with no swelling, redness, or edema. Neck: Trachea midline, no thyromegaly or masses palpated, and no cervical lymphadenopathy. Supple, full range of motion without nuchal rigidity, or vertebral point tenderness. No Meningismus. Chest/axilla: Normal chest wall appearance and motion. Nontender with no deformity. No lesions are appreciated. Cardiovascular: Regular rate and rhythm with a normal S1 and S2. No gallops, murmurs, or rubs. Normal PMI, no JVD. No pulse deficits. Respiratory: Lungs have equal breath sounds bilaterally, clear to auscultation and percussion. No rales, rhonchi or wheezes noted. No increased work of breathing, no retractions or nasal flaring. Abdomen/GI: Soft, non-tender, with normal bowel sounds. No distension or tympany. No guarding or rebound. No evidence of tenderness throughout. 16:00 ENT: External ear(s): are unremarkable, Ear canal(s): are normal, TM's: are normal, Nose: is normal, Mouth: Posterior pharynx: is normal, airway is patent, Dental exam: pain, that is moderate, specifically in the lower left third molar (#17). Vital Signs: 15:34 BP 123 / 89; Pulse 97; Resp 18 S; Temp 98.5(O); Pulse Ox 98% on R/A; Weight 79.38 kg jl7 (R); Height 5 ft. 11 in. (180.34 cm) (R); Pain 8/10; 15:34 Body Mass Index 24.41 (79.38 kg, 180.34 cm) jl7 MDM: 15:43 Patient medically screened. pm1 15:58 Data reviewed: vital signs. Data interpreted: Pulse oximetry: on room air is 98 %. pm1 Interpretation: normal. Counseling: I had a detailed discussion with the patient and/or guardian regarding: the historical points, exam findings, and any diagnostic results supporting the discharge/admit diagnosis, the need for outpatient follow up, for definitive care, a dentist, to return to the emergency department if symptoms worsen or persist or if there are any questions or concerns that arise at home. Administered Medications: No medications were administered Disposition: 10/24 07:10 Co-signature as Attending Physician, Christopher Quiroz MD. rn Disposition: 10/23/17 16:01 Discharged to Home. Impression: Dental pain. - Condition is Stable. - Discharge Instructions: Dental Pain. - Prescriptions for Amoxicillin 500 mg Oral Capsule - take 1 capsule by ORAL route every 8 hours for 10 days; 30 tablet. Tylenol- Codeine #3 300-30 mg Oral Tablet - take 2 tablets by ORAL route every 6 hours As needed; 20 tablet. - Medication Reconciliation Form, Thank You Letter, Antibiotic Education, Prescription Opioid Use form. - Follow up: Emergency Department; When: As needed; Reason: Worsening of condition. Follow up: Private Physician; When: 2 - 3 days; Reason: Recheck today's complaints, Continuance of care, Re-evaluation by your physician. - Problem is new. - Symptoms have improved. Signatures: Christopher Quiroz MD MD rn Po Quiles, NETWORK TECHNICAL ANALYST NETWORK TECHNICAL ANALYST pm1 oRse Mary Love RN RN jl7 Corrections: (The following items were deleted from the chart) 10/23 16:13 16:01 10/23/2017 16:01 Discharged to Home. Impression: Dental pain. Condition is jl7 Stable. Forms are Medication Reconciliation Form, Thank You Letter, Antibiotic Education, Prescription Opioid Use. Follow up: Emergency Department; When: As needed; Reason: Worsening of condition. Follow up: Private Physician; When: 2 - 3 days; Reason: Recheck today's complaints, Continuance of care, Re-evaluation by your physician. Problem is new. Symptoms have improved. pm1
--- NOTE | 2017-10-23 16:01 | ER ---
Nurse's Notes [facility] Name: Pedro Wright Age: 22 yrs Sex: Male : 1995 Arrival Date: 10/23/2017 Time: 14:55 Bed 11 Private MD: Jaspal Crouch B Diagnosis: Dental pain Presentation: 10/23 15:32 Presenting complaint: Patient states: left lower jaw pain from a tooth ache x 2 days. jl7 Transition of care: patient was not received from another setting of care. Onset of symptoms was October 21, 2017. Risk Assessment: Do you want to hurt yourself or someone else? Patient reports no desire to harm self or others. Initial Sepsis Screen: Does the patient meet any 2 criteria? No. Patient's initial sepsis screen is negative. Does the patient have a suspected source of infection? No. Patient's initial sepsis screen is negative. Care prior to arrival: None. 15:32 Method Of Arrival: Ambulatory jl7 15:32 Acuity: PEDRO 4 jl7 Triage Assessment: 15:34 General: Appears in no apparent distress. uncomfortable, Behavior is calm, cooperative, jl7 appropriate for age. Pain: Complains of pain in left jaw Pain does not radiate. Pain currently is 8 out of 10 on a pain scale. Quality of pain is described as throbbing. Historical: - Allergies: 15:34 NKA; jl7 - Home Meds: 15:34 None [Active]; jl7 - PMHx: 15:34 ADD/ADHD; jl7 - PSHx: 15:34 tumor removal; jl7 - Immunization history:: Adult Immunizations up to date. - Social history:: Smoking status: Patient uses tobacco products, smokes one pack cigarettes per day. - Ebola Screening: : No symptoms or risks identified at this time. Screenin:10 Abuse screen: Denies threats or abuse. Denies injuries from another. Nutritional iw screening: No deficits noted. Tuberculosis screening: No symptoms or risk factors identified. Fall Risk None identified. Assessment: 16:00 General: Appears in no apparent distress. Behavior is calm, cooperative. Pain: iw Complains of pain in left jaw. Neuro: Level of Consciousness is awake, alert, obeys commands, Oriented to person, place, time, Moves all extremities. Full function. Cardiovascular: Patient's skin is warm and dry. Respiratory: Respiratory pattern is regular. Musculoskeletal: Range of motion: intact in all extremities. Vital Signs: 15:34 BP 123 / 89; Pulse 97; Resp 18 S; Temp 98.5(O); Pulse Ox 98% on R/A; Weight 79.38 kg jl7 (R); Height 5 ft. 11 in. (180.34 cm) (R); Pain 8/10; 15:34 Body Mass Index 24.41 (79.38 kg, 180.34 cm) jl7 ED Course: 14:55 Patient arrived in ED. mr 14:55 Jaspal Crouch MD is Private Physician. mr 15:33 Triage completed. jl7 15:34 Arm band placed on left wrist. jl7 15:41 Po Quiles NP is PHCP. pm1 15:41 Christopher Quiroz MD is Attending Physician. pm1 15:50 Patient has correct armband on for positive identification. iw 16:09 Genoveva Angel, BENSON is Primary Nurse. iw 16:13 No provider procedures requiring assistance completed. Patient did not have IV access jl7 during this emergency room visit. Administered Medications: No medications were administered Outcome: 16:01 Discharge ordered by . pm1 16:13 Discharged to home ambulatory. jl7 16:13 Condition: stable 16:13 Discharge instructions given to patient, family, Instructed on discharge instructions, follow up and referral plans. medication usage, Demonstrated understanding of instructions, follow-up care, medications, Prescriptions given X 2. 16:13 Patient left the ED. jl7 Signatures: Clover Watson mr Genoveva Angel RN RN iw Po Quiles NP MICA SPLITTER pm1 Rose Mary Love RN RN jl7
[2017-10-23] MEDS ORDERED: LIDOCAINE 1% W/EPI 1:100,000 MDV 50 ML VIAL ONE (17:48)
[2017-10-23] MEDS ORDERED: LIDOCAINE VISCOUS 2% SOLN 15 ML UDC ONE (17:48)
== END 2017-10-23 16:13 | disposition home or self-care (01) ==
LOC: ER 14:51
DX: K08.89 Other specified disorders of teeth and supporting structures (principal); F17.210 Nicotine dependence, cigarettes, uncomplicated
CPT/HCPCS: 99282

== ENCOUNTER 2018-10-06 03:35 | Emergency (ER) | payer OTHER ==
[2018-10-06 04:34] LABS: Absolute Lymphocytes (CBC) 1.7 K/uL (0.7-4.9); Basophils % 0.4 % (0-1.3); Eosinophils % 0.7 % (0-4.4); Hematocrit 45.1 % (39.6-49.0); Lymphocytes % 11.9 % (15.3-44.8); MPV 9.4 fL (7.6-11.3); Monocytes % 4.7 % (3.3-12.3)
[2018-10-06] MEDS ORDERED: MORPHINE 4 MG/ML SYR ONE ×2 (04:36→07:41)
[2018-10-06] MEDS ORDERED: METRONIDAZOLE 500mg IVPB 500 MG/100 ML BAG IV ONE (04:36)
[2018-10-06] MEDS ORDERED: CIPROFLOXACIN 400mg IV 400 MG/200 ML BAG IV ONE (04:36)
[2018-10-06] MEDS ORDERED: ONDANSETRON 4 MG/2 ML VIAL ONE ×2 (04:36→07:41)
[2018-10-06 04:51] LABS: ALT/SGPT 30 U/L (12-78); AST/SGOT 13 U/L (15-37); Alkaline Phosphatase 61 U/L (45-117); BUN Blood Urea Nitrogen 15 mg/dL (7-18); Bicarbonate 27 mmol/L (21-32); Bilirubin Direct < 0.1 mg/dL (0-0.2); Bilirubin Total 0.3 mg/dL (0.2-1.0); Glucose Level 111 mg/dL (74-106); Lipase 583 U/L (73-393); Protein, Total 7.7 g/dL (6.4-8.2); Sodium Level 140 mmol/L (136-145)
[2018-10-06] MEDS ORDERED: NA CHLORIDE 0.9% 1,000 ML ONE ×4 (04:59→08:49)
--- NOTE | 2018-10-06 07:46 | RAD REPORT ---
EXAM DESCRIPTION: CT - Abdomen Pelvis W Contrast - 10/06/2018 7:06 am CLINICAL HISTORY: Right-sided abdominal pain COMPARISON: CT August 2017 TECHNIQUE: Biphasic, helical CT imaging of the abdomen and pelvis was performed following 100 ml non -ionic IV contrast. Oral contrast was given. All CT scans are performed using dose optimization technique as appropriate and may include automated exposure control or mA/KV adjustment according to patient size. FINDINGS: No suspicious findings in the lung bases. The liver, spleen, and pancreas show no suspicious findings. Gallbladder and biliary tree are also wi thout suspicious finding. Symmetric renal function is seen with no hydronephrosis or suspicious renal mass. No pyelonephritis o r acute parenchymal process. No bladder abnormalities. No adrenal abnormalities. No gastric dilatation or gastric wall thickening. A few prominent distal small bowel loops are presen t. The appendix is normal. No acute colon finding seen. A few small mesenteric lymph nodes are presen t. No free air or pneumatosis. Minimal free fluid seen in the dependent portion of the pelvis. No h ernia, mass or bulky lymphadenopathy. No suspicious bony findings. IMPRESSION: No appendicitis or other surgically emergent finding. Prominent distal small bowel loops are present with a minimal amount of free fluid. Pattern is relati vely similar to August 2017 and would be consistent with nonspecific ileitis or enteritis.
--- NOTE | 2018-10-06 08:06 | EDPHYS ---
Physician Documentation [facility] Name: Pedro Wright Age: 23 yrs Sex: Male : 1995 Arrival Date: 10/06/2018 Time: 03:36 Bed 19 Private MD: ED Physician Jared Rudolph HPI: 10/06 04:15 This 23 yrs old Male presents to ER via Ambulatory with complaints of faby Abdominal Pain. 04:15 The patient presents with abdominal pain in the upper abdomen, in the right upper faby quadrant. Onset: The symptoms/episode began/occurred last night. The symptoms do not radiate. Associated signs and symptoms: Pertinent positives: nausea and vomiting. The symptoms are described as constant, crampy. Modifying factors: The symptoms are alleviated by nothing, the symptoms are aggravated by nothing. Severity of pain: At its worst the pain was moderate severe in the emergency department the pain is unchanged. The patient has experienced similar episodes in the past, a few times. Historical: - Allergies: 04:01 NKA; fu - PMHx: 04:13 ADD/ADHD; fu - Immunization history:: Adult Immunizations up to date. - Social history:: Smoking status: Patient uses tobacco products, smokes one pack cigarettes per day. - Family history:: not pertinent. - Ebola Screening: : No symptoms or risks identified at this time. ROS: 04:15 Constitutional: Negative for fever, chills, and weight loss, Eyes: Negative for injury, faby pain, redness, and discharge, ENT: Negative for injury, pain, and discharge, Neck: Negative for injury, pain, and swelling, Cardiovascular: Negative for chest pain, palpitations, and edema, Respiratory: Negative for shortness of breath, cough, wheezing, and pleuritic chest pain, Back: Negative for injury and pain, : Negative for injury, bleeding, discharge, and swelling, MS/Extremity: Negative for injury and deformity, Skin: Negative for injury, rash, and discoloration, Neuro: Negative for headache, weakness, numbness, tingling, and seizure, Psych: Negative for depression, anxiety, suicide ideation, homicidal ideation, and hallucinations, Allergy/Immunology: Negative for hives, rash, and allergies, Endocrine: Negative for neck swelling, polydipsia, polyuria, polyphagia, and marked weight changes, Hematologic/Lymphatic: Negative for swollen nodes, abnormal bleeding, and unusual bruising. 04:15 Abdomen/GI: Positive for abdominal pain, nausea and vomiting, of the right upper quadrant and right lower quadrant. Exam: 04:15 Constitutional: This is a well developed, well nourished patient who is awake, alert, faby and in no acute distress. Head/Face: Normocephalic, atraumatic. Eyes: Pupils equal round and reactive to light, extra-ocular motions intact. Lids and lashes normal. Conjunctiva and sclera are non-icteric and not injected. Cornea within normal limits. Periorbital areas with no swelling, redness, or edema. ENT: Nares patent. No nasal discharge, no septal abnormalities noted. Tympanic membranes are normal and external auditory canals are clear. Oropharynx with no redness, swelling, or masses, exudates, or evidence of obstruction, uvula midline. Mucous membranes moist. Neck: Trachea midline, no thyromegaly or masses palpated, and no cervical lymphadenopathy. Supple, full range of motion without nuchal rigidity, or vertebral point tenderness. No Meningismus. Chest/axilla: Normal chest wall appearance and motion. Nontender with no deformity. No lesions are appreciated. Cardiovascular: Regular rate and rhythm with a normal S1 and S2. No gallops, murmurs, or rubs. Normal PMI, no JVD. No pulse deficits. Respiratory: Lungs have equal breath sounds bilaterally, clear to auscultation and percussion. No rales, rhonchi or wheezes noted. No increased work of breathing, no retractions or nasal flaring. Back: No spinal tenderness. No costovertebral tenderness. Full range of motion. Male : Normal genitalia with no discharge or lesions. Skin: Warm, dry with normal turgor. Normal color with no rashes, no lesions, and no evidence of cellulitis. MS/ Extremity: Pulses equal, no cyanosis. Neurovascular intact. Full, normal range of motion. Neuro: Awake and alert, GCS 15, oriented to person, place, time, and situation. Cranial nerves II-XII grossly intact. Motor strength 5/5 in all extremities. Sensory grossly intact. Cerebellar exam normal. Normal gait. Psych: Awake, alert, with orientation to person, place and time. Behavior, mood, and affect are within normal limits. 04:15 Abdomen/GI: Inspection: abdomen appears normal, Bowel sounds: normal, Palpation: moderate abdominal tenderness, in the right upper quadrant, Liver: no appreciated palpable abnormalities, Hernia: not appreciated. Vital Signs: 04:03 BP 139 / 96; Pulse 83; Resp 20; Temp 97.7(O); Pulse Ox 100% on R/A; Pain 10/10; fu 05:00 BP 149 / 95; Pulse 72; Resp 18; Pulse Ox 98% on R/A; Pain 7/10; fu 06:00 BP 135 / 82; Pulse 70; Resp 15; Pulse Ox 97% on R/A; Pain 4/10; fu 07:25 BP 132 / 90; Pulse 84; Resp 16 S; Temp 98.0(TE); Pulse Ox 98% on R/A; aa5 09:00 BP 121 / 76; Pulse 81; Resp 16 S; Pulse Ox 98% on R/A; aa5 MDM: 03:46 Patient medically screened. [facility] 04:17 Data reviewed: vital signs, nurses notes, lab test result(s), radiologic studies, CT faby scan. 10/06 04:14 Order name: Basic Metabolic Panel [facility] 10/06 04:14 Order name: CBC with Diff [facility] 10/06 04:14 Order name: Creatinine for Radiology; Complete Time: 05:00 [facility] 10/06 04:14 Order name: Hepatic Function; Complete Time: 05:00 [facility] 10/06 04:14 Order name: Lipase; Complete Time: 05:00 [facility] 10/06 04:15 Order name: Basic Metabolic Panel; Complete Time: 05:00 EDAZ 10/06 04:14 Order name: CT Abd/Pelvis - PO and IV Contrast [facility] 10/06 04:15 Order name: CBC with Automated Diff; Complete Time: 05:00 EDAZ 10/06 07:12 Order name: US Abdomen Limited [facility] 10/06 04:14 Order name: IV Saline Lock; Complete Time: 04:25 [facility] 10/06 04:14 Order name: Labs collected and sent; Complete Time: 04:25 [facility] Administered Medications: 04:28 Drug: Zofran 4 mg Route: IVP; Infused Over: 2 mins; Site: right antecubital; fu 05:11 Follow up: Response: Nausea is decreased fu 04:33 Drug: morphine 4 mg Route: IVP; Site: right antecubital; fu 05:09 Follow up: Response: No adverse reaction fu 04:34 Drug: Flagyl 500 mg Volume: 100 ml; Route: IVPB; Rate: 200 ml/hr; Infused Over: 30 fu mins; Site: right antecubital; 05:12 Follow up: Response: No adverse reaction fu 04:46 Drug: NS 0.9% 1000 ml Route: IV; Rate: 1 bolus; Site: right antecubital; fu 05:12 Follow up: Response: No adverse reaction fu 07:15 Follow up: IV Status: Completed infusion; IV Intake: 1000ml aa5 05:15 Drug: Cipro 400 mg Volume: 200 ml; Route: IVPB; Infused Over: 60 mins; Site: right fu antecubital; 05:40 Drug: NS 0.9% 1000 ml Route: IV; Rate: 1 bolus; Site: right antecubital; fu 06:04 Follow up: Response: No adverse reaction fu 07:15 Follow up: IV Status: Completed infusion; IV Intake: 1000ml aa5 06:09 Drug: NS 0.9% 1000 ml Route: IV; Rate: 125 ml/hr; Site: right antecubital; fu 07:15 Follow up: IV Status: Infusion continued aa5 07:28 Drug: morphine 4 mg Route: IVP; Site: right antecubital; aa5 07:35 Follow up: Response: No adverse reaction aa5 07:28 Drug: Zofran 4 mg Route: IVP; Site: right antecubital; aa5 07:35 Follow up: Response: No adverse reaction aa5 08:33 Drug: NS 0.9% 1000 ml Route: IV; Rate: 1 bolus; Site: right antecubital; aa5 09:30 Follow up: IV Status: Completed infusion; IV Intake: 1000ml aa5 Disposition: 10/06/18 08:06 Discharged to Home. Impression: Abdominal tenderness - ileitis, enteritis, Vomiting. - Condition is Stable. - Discharge Instructions: Abdominal Pain, Adult, Abdominal Pain, Adult, [id number]. - Prescriptions for Bentyl 20 mg Oral Tablet - take 1 tablet by ORAL route every 6 hours As needed; 20 tablet. Flagyl 500 mg Oral Tablet - take 1 tablet by ORAL route every 8 hours for 7 days; 21 tablet. Pepcid 20 mg Oral Tablet - take 1 tablet by ORAL route every 12 hours for 10 days; 20 tablet. Zofran 4 mg Oral Tablet - take 1 tablet by ORAL route every 12 hours As needed; 20 tablet. Cipro 500 mg Oral Tablet - take 1 tablet by ORAL route every 12 hours for 7 days; 14 tablet. - Medication Reconciliation Form, Thank You Letter, Antibiotic Education, Prescription Opioid Use, Work release form form. - Follow up: Private Physician; When: 2 - 3 days; Reason: Recheck today's complaints, Continuance of care, Re-evaluation by your physician. Follow up: Kuldip Singleton MD; When: 2 - 3 days; Reason: Recheck today's complaints, Re-evaluation by your physician. - Problem is new. - Symptoms have improved. Signatures: Dispatcher [employer] EDJared Dick MD MD cha Calderon, Audri, RN RN aa5 Panchito Booth RN RN fu Corrections: (The following items were deleted from the chart) 08:07 08:06 10/06/2018 08:06 Discharged to Home. Impression: Abdominal tenderness; Ileus, faby unspecified; Vomiting. Condition is Stable. Forms are Medication Reconciliation Form, Thank You Letter, Antibiotic Education, Prescription Opioid Use. Follow up: Private Physician; When: 2 - 3 days; Reason: Recheck today's complaints, Continuance of care, Re-evaluation by your physician. Follow up: Kuldip Singleton; When: 2 - 3 days; Reason: Recheck today's complaints, Re-evaluation by your physician. Problem is new. Symptoms have improved. faby 09:37 08:07 10/06/2018 08:06 Discharged to Home. Impression: Abdominal tenderness - ileitis, aa5 enteritis; Vomiting. Condition is Stable. Forms are Medication Reconciliation Form, Thank You Letter, Antibiotic Education, Prescription Opioid Use. Follow up: Private Physician; When: 2 - 3 days; Reason: Recheck today's complaints, Continuance of care, Re-evaluation by your physician. Follow up: Kuldip Singleton; When: 2 - 3 days; Reason: Recheck today's complaints, Re-evaluation by your physician. Problem is new. Symptoms have improved. faby
--- NOTE | 2018-10-06 08:06 | ER ---
Nurse's Notes [facility] Name: Pedro Wright Age: 23 yrs Sex: Male : 1995 Arrival Date: 10/06/2018 Time: 03:36 Bed 19 Private MD: Diagnosis: Abdominal tenderness-ileitis, enteritis;Vomiting Presentation: 10/06 03:56 Presenting complaint: Patient states: abdominal pain that started about 3 hours ago, fu reports nausea and vomiting. Transition of care: patient was not received from another setting of care. Onset of symptoms was October 06, 2018 at 01:00. Risk Assessment: Do you want to hurt yourself or someone else? Patient reports no desire to harm self or others. Initial Sepsis Screen: Does the patient meet any 2 criteria? No. Patient's initial sepsis screen is negative. Care prior to arrival: None. 03:56 Method Of Arrival: Ambulatory fu 03:56 Acuity: PEDRO 3 fu 07:15 Initial Sepsis Screen: Does the patient have a suspected source of infection? No. aa5 Patient's initial sepsis screen is negative. Triage Assessment: 04:08 General: Appears uncomfortable, Behavior is cooperative, anxious, Reports Denies fever, fu chills. Pain: Complains of pain in abdomen Pain radiates to lower back Pain currently is 10 out of 10 on a pain scale. Pain began 3 hours ago. Historical: - Allergies: 04:01 NKA; fu - PMHx: 04:13 ADD/ADHD; fu - Immunization history:: Adult Immunizations up to date. - Social history:: Smoking status: Patient uses tobacco products, smokes one pack cigarettes per day. - Family history:: not pertinent. - Ebola Screening: : No symptoms or risks identified at this time. Screenin:07 Abuse screen: Denies threats or abuse. Nutritional screening: No deficits noted. fu Tuberculosis screening: No symptoms or risk factors identified. Fall Risk None identified. Assessment: 04:04 General: Appears uncomfortable, Behavior is cooperative, anxious, Reports Denies fever, fu chills. Pain: Complains of pain in abdomen Pain radiates to lower back Pain currently is 10 out of 10 on a pain scale. Quality of pain is described as Pain began 3 hours ago. Neuro: Level of Consciousness is awake, alert, obeys commands, Reports Denies Seizure activity. Cardiovascular: Capillary refill < 3 seconds. Respiratory: Airway is patent Breath sounds are clear bilaterally. GI: Bowel sounds present X 4 quads. Abd is soft X 4 quads. : No signs and/or symptoms were reported regarding the genitourinary system. Derm: No signs and/or symptoms reported regarding the dermatologic system. Musculoskeletal: No signs and/or symptoms reported regarding the musculoskeletal system. 05:00 Reassessment: Patient appears in no apparent distress at this time. Patient is alert, fu oriented x 3, equal unlabored respirations, skin warm/dry/pink. Patient states feeling better. Patient states symptoms have improved. 07:01 Reassessment: Patient appears in no apparent distress at this time. Patient is alert, fu oriented x 3, equal unlabored respirations, skin warm/dry/pink. Patient states feeling better. Patient states symptoms have improved. 07:15 Reassessment: Report received from Panchito at 0700. Pt taken to US via wheelchair at this aa5 time. . 07:25 Reassessment: Pt back from US. Pt rates abd pain 6/10 on a pain scale, pt denies nausea aa5 at this time. Pt requesting pain medication, was notified. A\T\Ox4, equal unlabored respirations, skin is pink/warm/dry. Pt notified of wait time for radiology results, pt verbalized understanding. . 08:34 Reassessment: Patient is alert, oriented x 3, equal unlabored respirations, skin aa5 warm/dry/pink. Awaiting NS bolus to complete for d/c home, pt notified of wait time . 08:34 Pain: Pain currently is 4 out of 10 on a pain scale. aa5 09:30 Reassessment: Patient is alert, oriented x 3, equal unlabored respirations, skin aa5 warm/dry/pink. Vital Signs: 04:03 BP 139 / 96; Pulse 83; Resp 20; Temp 97.7(O); Pulse Ox 100% on R/A; Pain 10/10; fu 05:00 BP 149 / 95; Pulse 72; Resp 18; Pulse Ox 98% on R/A; Pain 7/10; fu 06:00 BP 135 / 82; Pulse 70; Resp 15; Pulse Ox 97% on R/A; Pain 4/10; fu 07:25 BP 132 / 90; Pulse 84; Resp 16 S; Temp 98.0(TE); Pulse Ox 98% on R/A; aa5 09:00 BP 121 / 76; Pulse 81; Resp 16 S; Pulse Ox 98% on R/A; aa5 ED Course: 03:36 Patient arrived in ED. ds1 03:45 Panchito Booth, RN is Primary Nurse. fu 03:46 Jaerd Rudolph MD is Attending Physician. faby 04:07 Patient has correct armband on for positive identification. Bed in low position. Call fu light in reach. Side rails up X2. 04:25 Inserted saline lock: 20 gauge in right antecubital area, using aseptic technique. mt Blood collected. 05:00 Oral contrast reported to be complete. eh 07:00 No provider procedures requiring assistance completed. fu 07:06 CT Abd/Pelvis - PO and IV Contrast In Process Unspecified. EDMS 07:14 Triage completed. fu 07:27 Ultrasound completed. Patient moved back from ultrasound. issa 07:28 US Abdomen Limited In Process Unspecified. EDMS 08:03 Kuldip Singleton MD is Referral Physician. faby 09:30 IV discontinued, intact, bleeding controlled, No redness/swelling at site. Pressure aa5 dressing applied. Administered Medications: 04:28 Drug: Zofran 4 mg Route: IVP; Infused Over: 2 mins; Site: right antecubital; fu 05:11 Follow up: Response: Nausea is decreased fu 04:33 Drug: morphine 4 mg Route: IVP; Site: right antecubital; fu 05:09 Follow up: Response: No adverse reaction fu 04:34 Drug: Flagyl 500 mg Volume: 100 ml; Route: IVPB; Rate: 200 ml/hr; Infused Over: 30 fu mins; Site: right antecubital; 05:12 Follow up: Response: No adverse reaction fu 04:46 Drug: NS 0.9% 1000 ml Route: IV; Rate: 1 bolus; Site: right antecubital; fu 05:12 Follow up: Response: No adverse reaction fu 07:15 Follow up: IV Status: Completed infusion; IV Intake: 1000ml aa5 05:15 Drug: Cipro 400 mg Volume: 200 ml; Route: IVPB; Infused Over: 60 mins; Site: right fu antecubital; 05:40 Drug: NS 0.9% 1000 ml Route: IV; Rate: 1 bolus; Site: right antecubital; fu 06:04 Follow up: Response: No adverse reaction fu 07:15 Follow up: IV Status: Completed infusion; IV Intake: 1000ml aa5 06:09 Drug: NS 0.9% 1000 ml Route: IV; Rate: 125 ml/hr; Site: right antecubital; fu 07:15 Follow up: IV Status: Infusion continued aa5 07:28 Drug: morphine 4 mg Route: IVP; Site: right antecubital; aa5 07:35 Follow up: Response: No adverse reaction aa5 07:28 Drug: Zofran 4 mg Route: IVP; Site: right antecubital; aa5 07:35 Follow up: Response: No adverse reaction aa5 08:33 Drug: NS 0.9% 1000 ml Route: IV; Rate: 1 bolus; Site: right antecubital; aa5 09:30 Follow up: IV Status: Completed infusion; IV Intake: 1000ml aa5 Intake: 07:15 IV: 1000ml; Total: 1000ml. aa5 07:15 IV: 1000ml; Total: 2000ml. aa5 09:30 IV: 1000ml; Total: 3000ml. aa5 Outcome: 08:06 Discharge ordered by . faby 09:30 Discharged to home ambulatory. aa5 09:30 Condition: improved 09:30 Discharge instructions given to patient, Instructed on discharge instructions, follow up and referral plans. medication usage, Demonstrated understanding of instructions, follow-up care, medications, Prescriptions given X 5 09:37 Patient left the ED. aa5 Signatures: Dispatcher [employer] EDAR Jared Rudolph MD MD cha Hagler, Ervin Palacioi ds1 Elin Cherry, RN RN aa5 Jessee Uribe jd, [facility] Panchito Booth RN RN
--- NOTE | 2018-10-06 09:26 | RAD REPORT ---
EXAM DESCRIPTION: US - Abdomen Exam Limited - 10/06/2018 7:28 am CLINICAL HISTORY: Abdominal pain COMPARISON: CT study October 06 FINDINGS: No gallstones, sludge or other abnormalities within the gallbladder lumen. There is no wal l thickening or pericholecystic fluid. No common duct stone or biliary tree dilatation identified. IMPRESSION: Normal gallbladder and biliary tree ultrasound.
== END 2018-10-06 09:37 | disposition home or self-care (01) ==
LOC: ER 03:35
DX: K52.9 Noninfective gastroenteritis and colitis, unspecified (principal); R11.10 Vomiting, unspecified; F17.210 Nicotine dependence, cigarettes, uncomplicated
CPT/HCPCS: 36415; 74177; 76705; 80048; 80076; 83690; 85025; 96361; 96374; 96375; 99284; J0744; J2405; J7030; Q9967

== ENCOUNTER 2020-04-19 05:03 | Emergency (ER) | payer SELFPAY ==
[2020-04-19] MEDS ORDERED: FLUORESCEIN SODIUM 1 MG/WRAP ONE (05:34)
[2020-04-19] MEDS ORDERED: TETRACAINE HCL 0.5% 4ML OPTH ONE (05:34)
[2020-04-19] MEDS ORDERED: TOBRAMYCIN SULF 0.3% OPTH OINT ONE (06:04)
--- NOTE | 2020-04-19 06:18 | EDPHYS ---
Physician Documentation [facility] Name: Pedro Wright Age: 25 yrs Sex: Male : 1995 Arrival Date: 04/19/2020 Time: 05:06 Bed 6 Private MD: Jaspal Crouch B ED Physician Jared Rudolph HPI: 04/19 06:07 This 25 yrs old Male presents to ER via Ambulatory with complaints of Eye faby Pain, Eye Problem. 06:07 The patient sustained Unknown. to the right eye. Onset: The symptoms/episode faby began/occurred yesterday. Duration: the symptoms are continuous. Aggravated by blinking, closing eye, light. Associated signs and symptoms: Pertinent positives: None. Patient wears soft contacts. Severity of symptoms: At their worst the symptoms were moderate in the emergency department the symptoms are unchanged. The patient has experienced a previous episode, last year. Historical: - Allergies: 05:08 NKA; sg - PMHx: 05:08 ADD/ADHD; sg - Immunization history:: Adult Immunizations up to date. - Social history:: Smoking status: Patient reports the use of cigarette tobacco products, smokes one pack cigarettes per day. - Family history:: not pertinent. ROS: 06:07 Constitutional: Negative for fever, chills, and weight loss, ENT: Negative for injury, faby pain, and discharge, Neck: Negative for injury, pain, and swelling, Cardiovascular: Negative for chest pain, palpitations, and edema, Respiratory: Negative for shortness of breath, cough, wheezing, and pleuritic chest pain, Abdomen/GI: Negative for abdominal pain, nausea, vomiting, diarrhea, and constipation, Back: Negative for injury and pain, : Negative for injury, bleeding, discharge, and swelling, MS/Extremity: Negative for injury and deformity, Skin: Negative for injury, rash, and discoloration, Neuro: Negative for headache, weakness, numbness, tingling, and seizure, Psych: Negative for depression, anxiety, suicide ideation, homicidal ideation, and hallucinations, Allergy/Immunology: Negative for hives, rash, and allergies, Endocrine: Negative for neck swelling, polydipsia, polyuria, polyphagia, and marked weight changes, Hematologic/Lymphatic: Negative for swollen nodes, abnormal bleeding, and unusual bruising. 06:07 Eyes: Positive for foreign body sensation, pain, tearing, of the outer aspect of conjuctiva of right eye, iris of right eye and inner aspect of conjuctiva of right eye. Exam: 06:07 Constitutional: This is a well developed, well nourished patient who is awake, alert, faby and in no acute distress. Head/Face: Normocephalic, atraumatic. ENT: Nares patent. No nasal discharge, no septal abnormalities noted. Tympanic membranes are normal and external auditory canals are clear. Oropharynx with no redness, swelling, or masses, exudates, or evidence of obstruction, uvula midline. Mucous membranes moist. Neck: Trachea midline, no thyromegaly or masses palpated, and no cervical lymphadenopathy. Supple, full range of motion without nuchal rigidity, or vertebral point tenderness. No Meningismus. Chest/axilla: Normal chest wall appearance and motion. Nontender with no deformity. No lesions are appreciated. Cardiovascular: Regular rate and rhythm with a normal S1 and S2. No gallops, murmurs, or rubs. Normal PMI, no JVD. No pulse deficits. Respiratory: Lungs have equal breath sounds bilaterally, clear to auscultation and percussion. No rales, rhonchi or wheezes noted. No increased work of breathing, no retractions or nasal flaring. Abdomen/GI: Soft, non-tender, with normal bowel sounds. No distension or tympany. No guarding or rebound. No evidence of tenderness throughout. Back: No spinal tenderness. No costovertebral tenderness. Full range of motion. Male : Normal genitalia with no discharge or lesions. Skin: Warm, dry with normal turgor. Normal color with no rashes, no lesions, and no evidence of cellulitis. Neuro: Awake and alert, GCS 15, oriented to person, place, time, and situation. Cranial nerves II-XII grossly intact. Motor strength 5/5 in all extremities. Sensory grossly intact. Cerebellar exam normal. Normal gait. Psych: Awake, alert, with orientation to person, place and time. Behavior, mood, and affect are within normal limits. 06:07 Eyes: Periorbital structures: appear normal, no acute changes, Pupils: no acute changes, equal, round, and reactive to light and accomodation, Extraocular movements: intact throughout, Conjunctiva: normal, no acute changes, Corneas: abrasion, a fluorescein strip employed to appreciate the findings, Sclera: no appreciated abnormality, no acute changes, Anterior chamber: normal, no acute changes, Lids and lashes: appear normal, no acute changes, funduscopic exam reveals no obvious abnormalities, no acute changes, Nystagmus: is not appreciated, no acute changes. Vital Signs: 05:19 BP 135 / 101; Pulse 62; Resp 16; Temp 98; Pulse Ox 97% ; Weight 79.38 kg; Height 5 ft. rv 11 in. (180.34 cm); 05:19 Body Mass Index 24.41 (79.38 kg, 180.34 cm) rv MDM: 05:12 Patient medically screened. [facility] 06:15 Differential diagnosis: Corneal abrasion of Corneal ulcer of Foreign body in Acute faby iritis of Ultraviolet keratitis in right eye. Data reviewed: vital signs, nurses notes. Data interpreted: teletypesetter monitor: rate is 62 beats/min, rhythm is regular, Pulse oximetry: on room air is 97 %. Counseling: I had a detailed discussion with the patient and/or guardian regarding: the historical points, exam findings, and any diagnostic results supporting the discharge/admit diagnosis, the need for outpatient follow up, for definitive care, an opthalmologist. Physician consultation: Helena Garnett MD regarding patient's condition, need to come to ED to see patient, outpatient follow-up, today, and will see patient in office, shortly. 04/19 06:15 Order name: Eye Tray; Complete Time: 06:18 [facility] 04/19 06:15 Order name: Fluoresene Opth strip; Complete Time: 06:18 [facility] Administered Medications: 06:18 Drug: Tetracaine Drops 0.5 % 1 drops Route: Ophthalmic; Site: right eye; ea 06:18 Drug: Tobramycin Ointment (0.3 %) 1 application Route: Ophthalmic; Site: right eye; ea 06:23 CANCELLED (Duplicate Order): VICOdin 5 mg-500 mg (Original Strength) 2 tabs PO once; faby RASS on ADMIN: Combtv4, Very Agttd3, Agttd2, Rstlss1, AlertClm0, Drwsy-1, Lt Sdtn-2, Mod Sdtn-3, Dp Sdtn-4, UnArsble-5 06:28 Drug: [place] 10 mg-325 mg 1 tabs Route: PO; rv 06:28 Follow up: Response: Medication administered at discharge. rv Disposition: 04/19/20 06:18 Discharged to Home. Impression: Central corneal ulcer, right eye, Ocular pain, right eye. - Condition is Stable. - Discharge Instructions: Corneal Ulcer. - Prescriptions for Tylenol- Codeine #3 300-30 mg Oral Tablet - take 2 tablets by ORAL route every 6 hours As needed; 15 tablet. Vigamox 0.5 % Ophthalmic Drops - instill 1 drop by OPHTHALMIC route every 2 hours for 7 days; 5 milliliter. - Medication Reconciliation Form, Thank You Letter, Antibiotic Education, Prescription Opioid Use form. - Follow up: Helena Garnett MD; When: Today; Reason: Further diagnostic work-up, Recheck today's complaints, Re-evaluation by your physician. - Problem is new. - Symptoms have improved. Signatures: Lucio Hubbard RN RN sg Anderson, Corey, MD MD cha Antunez, Elena RN Panfilo Lowe ea, RN RN rv Corrections: (The following items were deleted from the chart) 06: 06:15 VICOdin 5 mg-500 mg (Original Strength) 2 tabs PO once; RASS on ADMIN: Combtv4, faby Very Agttd3, Agttd2, Rstlss1, AlertClm0, Drwsy-1, Lt Sdtn-2, Mod Sdtn-3, Dp Sdtn-4, UnArsble-5 ordered. faby : 06:21 VICOdin 5 mg-500 mg (Original Strength) 2 tabs PO once; RASS on ADMIN: Combtv4, faby Very Agttd3, Agttd2, Rstlss1, AlertClm0, Drwsy-1, Lt Sdtn-2, Mod Sdtn-3, Dp Sdtn-4, UnArsble-5 given. kati : 06:22 VICOdin 5 mg-500 mg (Original Strength) 2 tabs PO once; RASS on ADMIN: Combtv4, faby Very Agttd3, Agttd2, Rstlss1, AlertClm0, Drwsy-1, Lt Sdtn-2, Mod Sdtn-3, Dp Sdtn-4, UnArsble-5 ordered. ea 06:30 06:18 04/19/2020 06:18 Discharged to Home. Impression: Central corneal ulcer, right rv eye; Ocular pain, right eye. Condition is Stable. Forms are Medication Reconciliation Form, Thank You Letter, Antibiotic Education, Prescription Opioid Use. Follow up: Helena Garnett; When: Today; Reason: Further diagnostic work-up, Recheck today's complaints, Re-evaluation by your physician. Problem is new. Symptoms have improved. faby
--- NOTE | 2020-04-19 06:18 | ER ---
Nurse's Notes [facility] Name: Pedro Wright Age: 25 yrs Sex: Male : 1995 Arrival Date: 04/19/2020 Time: 05:06 Bed 6 Private MD: Jaspal Crouch B Diagnosis: Central corneal ulcer, right eye;Ocular pain, right eye Presentation: 04/19 05:19 Chief complaint: Patient states: patient wears contact lenses. right eye got irritated rv from yesterday. patient woke up with pain this morning. blurring of vision, with redness and pain on right eye. Coronavirus screen: Client denies travel out of the [place] in the last 14 days. Ebola Screen: No symptoms or risks identified at this time. Mechanism of Injury: No Mechanism of Injury. The patient denies any loss of vision. Initial Sepsis Screen: Does the patient meet any 2 criteria? No. Patient's initial sepsis screen is negative. Does the patient have a suspected source of infection? No. Patient's initial sepsis screen is negative. Risk Assessment: Do you want to hurt yourself or someone else? Patient reports no desire to harm self or others. Onset of symptoms was April 18, 2020. 05:19 Method Of Arrival: Ambulatory rv 05:19 Acuity: PEDRO 4 rv Triage Assessment: 05:19 General: Appears uncomfortable, Behavior is calm, cooperative. Pain: Complains of pain rv in right eye. EENT: Eyes redness. Neuro: Level of Consciousness is awake, alert, obeys commands, Oriented to person, place, time, situation. Cardiovascular: Patient's skin is warm and dry. Respiratory: Airway is patent. Musculoskeletal: No signs and/or symptoms reported regarding the musculoskeletal system. Historical: - Allergies: 05:08 NKA; sg - PMHx: 05:08 ADD/ADHD; sg - Immunization history:: Adult Immunizations up to date. - Social history:: Smoking status: Patient reports the use of cigarette tobacco products, smokes one pack cigarettes per day. - Family history:: not pertinent. Screenin:21 Abuse screen: Denies threats or abuse. Nutritional screening: No deficits noted. ea Tuberculosis screening: No symptoms or risk factors identified. Fall Risk None identified. Assessment: 05:22 EENT: Sclera/Cornea are reddened in right eye Reports blurred vision in right eye rv photophobia. 06:29 Reassessment: Patient and/or family updated on plan of care and expected duration. Pain rv level reassessed. Patient is alert, oriented x 3, equal unlabored respirations, skin warm/dry/pink. Discharge instructions given to patient, verbalized the understanding of instruction. Pt family awaiting in lobby for pt. Pt left ED ambulatory, tolerating well. Vital Signs: 05:19 BP 135 / 101; Pulse 62; Resp 16; Temp 98; Pulse Ox 97% ; Weight 79.38 kg; Height 5 ft. rv 11 in. (180.34 cm); 05:19 Body Mass Index 24.41 (79.38 kg, 180.34 cm) rv ED Course: 05:06 Patient arrived in ED. es 05:07 Jaspal Crouch MD is Private Physician. es 05:08 Arm band placed on. sg 05:12 Panfilo Urbina RN is Primary Nurse. rv 05:12 Jared Rudolph MD is Attending Physician. faby 05:21 Triage completed. rv 05:21 Patient has correct armband on for positive identification. Bed in low position. Call ea light in reach. Side rails up X2. Pulse ox on. NIBP on. 05:22 Patient has correct armband on for positive identification. Pulse ox on. NIBP on. rv 05:22 Patient did not have IV access during this emergency room visit. rv 06:17 Helena Garnett MD is Referral Physician. faby 06:29 No provider procedures requiring assistance completed. rv Administered Medications: 06:18 Drug: Tetracaine Drops 0.5 % 1 drops Route: Ophthalmic; Site: right eye; ea 06:18 Drug: Tobramycin Ointment (0.3 %) 1 application Route: Ophthalmic; Site: right eye; ea 06:23 CANCELLED (Duplicate Order): VICOdin 5 mg-500 mg (Original Strength) 2 tabs PO once; faby RASS on ADMIN: Combtv4, Very Agttd3, Agttd2, Rstlss1, AlertClm0, Drwsy-1, Lt Sdtn-2, Mod Sdtn-3, Dp Sdtn-4, UnArsble-5 06:28 Drug: [place] 10 mg-325 mg 1 tabs Route: PO; rv 06:28 Follow up: Response: Medication administered at discharge. rv Outcome: 06:18 Discharge ordered by . faby 06:29 Discharged to home ambulatory, with family. rv 06:29 Condition: stable 06:29 Discharge instructions given to patient, Instructed on discharge instructions, follow up and referral plans. medication usage, Demonstrated understanding of instructions, follow-up care, medications, Prescriptions given X 2. 06:30 Patient left the ED. rv Signatures: Lucio Hubbard RN RN Jared Callahan MD MD cha Salyer, Edna es Antunez, Elena, RN RN Panfilo Garcia RN RN rv Corrections: (The following items were deleted from the chart) 06:22 06:21 VICOdin 5 mg-500 mg (Original Strength) 2 tabs PO kati parikh
[2020-04-19 06:34] VITALS: BP 135/101; TEMP 98; O2SAT 97
[2020-04-19] MEDS ORDERED: HYDROCODONE/APAP 5/325 MG TAB ONE (06:39)
== END 2020-04-19 06:30 | disposition home or self-care (01) ==
LOC: ER 05:03
DX: H16.011 Central corneal ulcer, right eye (principal); F17.210 Nicotine dependence, cigarettes, uncomplicated
CPT/HCPCS: 99283

== ENCOUNTER 2020-12-21 09:24 | Emergency (ER) | payer SELFPAY ==
[2020-12-21 10:30] LABS: Absolute Lymphocytes (CBC) 1.7 K/uL (0.7-4.9); Basophils % 0.4 % (0-1.3); Hematocrit 39.8 % (39.6-49.0); Lymphocytes % 20.1 % (15.3-44.8); MPV 8.7 fL (7.6-11.3); RBC Red Blood Cell Count 4.57 M/uL (4.33-5.43)
[2020-12-21 10:36] LABS: Protime INR 1.07
[2020-12-21 10:47] LABS: ALT/SGPT 25 U/L (12-78); AST/SGOT 15 U/L (15-37); Albumin 3.9 g/dL (3.4-5.0); Alkaline Phosphatase 57 U/L (45-117); BUN Blood Urea Nitrogen 10 mg/dL (7-18); Bicarbonate 29 mmol/L (21-32); Bilirubin Direct 0.1 mg/dL (0-0.2); Bilirubin Total 0.3 mg/dL (0.2-1.0); Glucose Level 94 mg/dL (74-106); NT PRO-BNP 106 pg/mL (<125); Potassium 3.6 mmol/L (3.5-5.1); Protein, Total 7.2 g/dL (6.4-8.2); Sodium Level 142 mmol/L (136-145); Troponin (Emerg Dept Use Only) < 0.02 ng/mL (0.0-0.045)
--- NOTE | 2020-12-21 11:20 | RAD REPORT ---
EXAM DESCRIPTION: RAD - Chest Single View - 12/21/2020 10:58 am CLINICAL HISTORY: Dizziness;Palpitations COMPARISON: July 2014 TECHNIQUE: AP portable chest image was obtained 12/21/2020 10:58 am . FINDINGS: No focal lung parenchymal process seen. Interstitial pattern matches the comparison. Heart and vasculature are normal. No measurable pleural effusion and no pneumothorax. No acute bony abnorm ality seen. No acute aortic findings suspected. IMPRESSION: No acute cardiopulmonary process.
[2020-12-21 12:03] LABS: Urine Blood Negative (Negative); Urine Glucose Negative (Negative); Urine Protein Negative (Negative); Urine Specific Gravity 1.025 (1.005-1.030)
--- NOTE | 2020-12-21 12:14 | ER ---
Nurse's Notes [facility] Name: Pedro Wright Age: 25 yrs Sex: Male : 1995 Arrival Date: 12/21/2020 Time: 09:25 Bed 23 Private MD: Diagnosis: Dizziness and giddiness;Palpitations;Syncope Near Presentation: 12/21 09:25 Chief complaint: Patient states: Dizziness x 2-3 days ago. Pt states "I've had a aa5 toothache for a few days so I thought the dizziness was related to that but today I was sitting at the dentist's office and I started feeling dizzy like I was going to pass out and my heart was racing". Pt denies nausea/vomiting/diarrhea. 09:25 Coronavirus screen: At this time, the client does not indicate any symptoms associated aa5 with coronavirus-19. Ebola Screen: Patient negative for fever greater than or equal to 101.5 degrees Fahrenheit, and additional compatible Ebola Virus Disease symptoms. Initial Sepsis Screen: Does the patient meet any 2 criteria? No. Patient's initial sepsis screen is negative. Does the patient have a suspected source of infection? No. Patient's initial sepsis screen is negative. Risk Assessment: Do you want to hurt yourself or someone else? Patient reports no desire to harm self or others. Onset of symptoms was December 21, 2020. 09:25 Acuity: PEDRO 3 aa5 09:25 Method Of Arrival: Ambulatory aa5 Triage Assessment: 10:20 General: Appears in no apparent distress. Behavior is calm, cooperative. iw Historical: - Allergies: 09:35 NKA; aa5 - Home Meds: 09:35 None [Active]; aa5 - PMHx: 09:35 None; aa5 - PSHx: 09:35 ear; aa5 - Immunization history:: Client reports having NOT received the Covid vaccine. Flu vaccine is not up to date. - Social history:: Smoking status: Patient reports the use of cigarette tobacco products, smokes one-half pack cigarettes per day. Screenin:04 Abuse screen: Denies threats or abuse. Denies injuries from another. Nutritional aj2 screening: No deficits noted. Tuberculosis screening: No symptoms or risk factors identified. Fall Risk None identified. Assessment: 10:04 Pain: Denies pain. Pain: Denies pain. aj2 12:00 Cardiovascular: No deficits noted. iw Vital Signs: 09:25 BP 168 / 106; Pulse 85; Resp 18 S; Temp 98.2(O); Pulse Ox 98% on R/A; Weight 79.38 kg aa5 (R); Height 5 ft. 11 in. (180.34 cm) (R); Pain 0/10; 10:04 BP 140 / 90; Pulse 74; Resp 18; Temp 98.2; Pulse Ox 99% on R/A; aj2 09:25 Body Mass Index 24.41 (79.38 kg, 180.34 cm) aa5 ED Course: 09:25 Patient arrived in ED. as 09:25 Arm band placed on Patient placed in an exam room, on a stretcher. aa5 09:26 John Jernigan MD is Attending Physician. kdr 09:35 Triage completed. aa5 09:55 Junito De La Garza is Primary Nurse. aj2 10:04 No apparent distress. Resting quietly. aj2 10:04 Patient has correct armband on for positive identification. site monitor on. aj2 10:04 No provider procedures requiring assistance completed. Patient did not have IV access aj2 during this emergency room visit. Patient maintains SpO2 saturation greater than 95% on room air. 10:35 Liver (Hepatic) Function Sent. aj2 10:35 Basic Metabolic Panel Sent. aj2 10:35 Basic Metabolic Panel Sent. aj2 10:35 CBC with Diff Sent. aj2 10:35 LFT's Sent. aj2 10:36 PT-INR Sent. aj2 10:36 Troponin (emerg Dept Use Only) Sent. aj2 10:36 Magnesium Sent. aj2 10:36 NT PRO-BNP Sent. aj2 10:58 XRAY Chest (1 view) In Process Unspecified. EDMS 12:41 IV discontinued, intact, bleeding controlled, No redness/swelling at site. Pressure iw dressing applied. Administered Medications: No medications were administered Outcome: 12:13 Discharge ordered by . kdr 12:41 Discharged to home ambulatory. iw 12:41 Condition: good 12:41 Discharge instructions given to patient, Instructed on discharge instructions, follow up and referral plans. Demonstrated understanding of instructions, follow-up care. 12:42 Patient left the ED. iw Signatures: Dispatcher [employer] EDMS Chino Jerniganin, MD MD kdr Mathieu, Danielle as Stanley, Genoveva, RN RN iw Elin Cherry RN RN aa5 Junito De La Garza
--- NOTE | 2020-12-21 12:14 | EDPHYS ---
Physician Documentation [facility] Name: Pedro Wright Age: 25 yrs Sex: Male : 1995 Arrival Date: 12/21/2020 Time: 09:25 Bed 23 Private MD: ED Physician John Jernigan HPI: 12/21 15:13 This 25 yrs old Male presents to ER via Ambulatory with complaints of kdr Dizziness, Near Syncope, Irregular Pulse. 15:13 The patient presents with dizziness, Palpitations. kdr Historical: - Allergies: 09:35 NKA; aa5 - Home Meds: 09:35 None [Active]; aa5 - PMHx: 09:35 None; aa5 - PSHx: 09:35 ear; aa5 - Immunization history:: Client reports having NOT received the Covid vaccine. Flu vaccine is not up to date. - Social history:: Smoking status: Patient reports the use of cigarette tobacco products, smokes one-half pack cigarettes per day. ROS: 15:17 Constitutional: Negative for fever, chills, and weight loss, Eyes: Negative for injury, kdr pain, redness, and discharge, ENT: Negative for injury, pain, and discharge, Neck: Negative for injury, pain, and swelling, Cardiovascular: Negative for chest pain and edema, Respiratory: Negative for shortness of breath, cough, wheezing, and pleuritic chest pain, Abdomen/GI: Negative for abdominal pain, nausea, vomiting, diarrhea, and constipation, Back: Negative for injury and pain, : Negative for injury, bleeding, discharge, and swelling, MS/Extremity: Negative for injury and deformity, Skin: Negative for injury, rash, and discoloration, Psych: Negative for depression, anxiety, suicide ideation, homicidal ideation, and hallucinations, Allergy/Immunology: Negative for hives, rash, and allergies, Endocrine: Negative for neck swelling, polydipsia, polyuria, polyphagia, and marked weight changes, Hematologic/Lymphatic: Negative for swollen nodes, abnormal bleeding, and unusual bruising. 15:17 Cardiovascular: Positive for palpitations, Intermittent, Negative for palpitations. Exam: 15:17 Constitutional: This is a well developed, well nourished patient who is awake, alert, kdr and in no acute distress. Head/Face: Normocephalic, atraumatic. Eyes: Pupils equal round and reactive to light, extra-ocular motions intact. Lids and lashes normal. Conjunctiva and sclera are non-icteric and not injected. Cornea within normal limits. Periorbital areas with no swelling, redness, or edema. Neck: Trachea midline, no thyromegaly or masses palpated, and no cervical lymphadenopathy. Supple, full range of motion without nuchal rigidity, or vertebral point tenderness. No Meningismus. Chest/axilla: Normal chest wall appearance and motion. Nontender with no deformity. No lesions are appreciated. Cardiovascular: Regular rate and rhythm with a normal S1 and S2. No gallops, murmurs, or rubs. Normal PMI, no JVD. No pulse deficits. Respiratory: Lungs have equal breath sounds bilaterally, clear to auscultation and percussion. No rales, rhonchi or wheezes noted. No increased work of breathing, no retractions or nasal flaring. Abdomen/GI: Soft, non-tender, with normal bowel sounds. No distension or tympany. No guarding or rebound. No evidence of tenderness throughout. Back: No spinal tenderness. No costovertebral tenderness. Full range of motion. Skin: Warm, dry with normal turgor. Normal color with no rashes, no lesions, and no evidence of cellulitis. MS/ Extremity: Pulses equal, no cyanosis. Neurovascular intact. Full, normal range of motion. Neuro: Awake and alert, GCS 15, oriented to person, place, time, and situation. Cranial nerves II-XII grossly intact. Motor strength 5/5 in all extremities. Sensory grossly intact. Cerebellar exam normal. Normal gait. Psych: Awake, alert, with orientation to person, place and time. Behavior, mood, and affect are within normal limits. 12/22 08:17 ECG was reviewed by the Attending Physician. kdr Vital Signs: 12/21 09:25 BP 168 / 106; Pulse 85; Resp 18 S; Temp 98.2(O); Pulse Ox 98% on R/A; Weight 79.38 kg aa5 (R); Height 5 ft. 11 in. (180.34 cm) (R); Pain 0/10; 10:04 BP 140 / 90; Pulse 74; Resp 18; Temp 98.2; Pulse Ox 99% on R/A; aj2 09:25 Body Mass Index 24.41 (79.38 kg, 180.34 cm) aa5 MDM: 12:13 Patient medically screened. [facility] 15:17 Data reviewed: vital signs, nurses notes, lab test result(s), EKG, radiologic studies. [facility] Counseling: I had a detailed discussion with the patient and/or guardian regarding: the historical points, exam findings, and any diagnostic results supporting the discharge/admit diagnosis, lab results, radiology results, the need for outpatient follow up. ED course: He was stable in the in the ED. He states that his symptoms which began earlier today had resolved at the time of discharge in fact shortly after arrival in the ED. He was happy with the care provided and the plan for discharge and follow-up. We discussed all findings from the studies performed in the ED.. 12/21 09:59 Order name: Basic Metabolic Panel [facility] 12/21 09:59 Order name: CBC with Diff [facility] 12/21 09:59 Order name: LFT's [facility] 12/21 09:59 Order name: Magnesium; Complete Time: 10:58 [facility] 12/21 09:59 Order name: NT PRO-BNP; Complete Time: 10:58 [facility] 12/21 09:59 Order name: PT-INR; Complete Time: 10:58 [facility] 12/21 09:59 Order name: Troponin (emerg Dept Use Only); Complete Time: 10:58 [facility] 12/21 09:59 Order name: XRAY Chest (1 view); Complete Time: 11:27 [facility] 12/21 09:59 Order name: EKG; Complete Time: 10:00 [facility] 12/21 09:59 Order name: Cardiac monitoring; Complete Time: 10:35 [facility] 12/21 10:00 Order name: Basic Metabolic Panel; Complete Time: 10:58 [facility] 12/21 10:00 Order name: CBC with Automated Diff; Complete Time: 10:58 [facility] 12/21 10:00 Order name: Liver (Hepatic) Function; Complete Time: 10:58 [facility] 12/21 12:02 Order name: Urine Dipstick-Ancillary; Complete Time: 12:09 [facility] 12/21 09:59 Order name: EKG - Nurse/Tech; Complete Time: 10:35 [facility] 12/21 09:59 Order name: IV Saline Lock; Complete Time: 10:35 [facility] 12/21 09:59 Order name: Labs collected and sent; Complete Time: 10:35 kdr 12/21 09:59 Order name: O2 Per Protocol; Complete Time: 10:35 kdr 12/21 09:59 Order name: O2 Sat Monitoring; Complete Time: 10:36 kdr 12/21 10:21 Order name: Urine Dipstick-Ancillary (obtain specimen); Complete Time: 12:04 kdr EC/18 08:17 Rate is 60 beats/min. Rhythm is regular, Sinus Rhythm with No ectopy. QRS [place] is kdr Normal. LA interval is normal. QRS interval is normal. QT interval is normal. Clinical impression: NSR w/ Non-specific ST/T Changes. Administered Medications: No medications were administered Disposition Summary: 12/21/20 12:13 Discharge Ordered Location: Home kdr Problem: new kdr Symptoms: have improved kdr Condition: Stable kdr Diagnosis - Dizziness and giddiness kdr - Palpitations kdr - Syncope Near kdr Followup: kdr - With: Private Physician - When: 2 - 3 days - Reason: If symptoms return, Further diagnostic work-up, Recheck today's complaints, Continuance of care, Re-evaluation by your physician Discharge Instructions: - Discharge Summary Sheet kdr - Syncope, Erho-[id number] kdr - Palpitations, Oilk-pj-Alqs kdr - Dizziness, [id number] kdr Forms: - Medication Reconciliation Form kdr - Thank You Letter kdr - Work release form eb Signatures: Dispatcher [employer] John Cole MD MD kdr Elin Cherry, RN RN aa5
[2020-12-21 12:48] VITALS: TEMP 98.2
[2020-12-21 12:49] VITALS: BP 140/90; O2SAT 99
--- NOTE | 2020-12-21 18:23 | EKG ---
Test Date: 2020-12-21 Test Time: 10:30:23 [place]: CHARLINE MEASUREMENT RESULTS: Intervals: Rate: 60 WA: 150 QRSD: 98 QT: 420 QTc: 420 [place]: P: 27 WA: 150 QRS: 31 T: 31 INTERPRETIVE STATEMENTS: Normal sinus rhythm RSR' or QR pattern in V1 suggests right ventricular conduction delay Borderline ECG Compared to ECG 02/22/2015 19:50:46 No significant changes Electronically Signed On 12-21-20 18:20:52 CDT by Dalton Boston
== END 2020-12-21 12:42 | disposition home or self-care (01) ==
LOC: ER 09:24
DX: R00.2 Palpitations (principal); R55 Syncope and collapse; F17.210 Nicotine dependence, cigarettes, uncomplicated
CPT/HCPCS: 36415; 71045; 80048; 80076; 81003; 83735; 83880; 84484; 85025; 85610; 93005; 99284

== ENCOUNTER 2022-05-20 18:39 | Emergency (ER) | payer SELFPAY ==
--- OUTSIDE RECORDS SUMMARY | 2022-05-20 18:42 | XMS REPORT | Continuity of Care Document ---
:1995 Author Organization [facility] t Address [address] [place] [address] [address]. [address] [place] [address] Care Team Providers Name Role Phone Unavailable Unavailable Unavailable Problems This patient has no known problems. Allergies, Adverse Reactions, Alerts This patient has no known allergies or adverse reactions. Medications This patient has no known medications. Procedures This patient has no known procedures. Results Test Description Test Time Test Comments Results Result Comments Source SARS-CoV-2 (COVID-19), RT-PCR/TMA 2021-04-14 17:22:51 Test Item Value Reference Range Interpretation Comme nts SARS-CoV-2 INTERPRETATION POSITIVE SEE NOTE A S ARS-CoV-2 RNA DETECTEDPositive (test code = 10134) results are indicative of the presence of VERONIKA S-CoV-2 RNA;clinical co rrelation with patient history and other diagnosticinfor mation is necessary to de termine patient infection statu s.Positive results do not rule out bacterial infection or co -infectionwith other viruses. Positive and negative predic tive values oftesting are h ighly dependent on prevalence. SOURCE (test code = 79136) NASOPHARYNGEAL Note: Methodology is Odell Archie Real-Time RT-PC R. The expected result or refer ence range is NEGATIVE (Not D etected). For more information reg arding COVID-19 testing to incl ude clinicalinforma tion, methodology detail, intende d use, FDA authorization a ndrecommended fact sheets for agustín ents or healthcare providers, see NewTest Announcement: S ARS-CoV-2 (COVID-19) by N AAT at URL below (note,fact shee ts are provided by method given in report:https:// www.[employer]/cl inicians/client -communications/ Alternatively, see downloadable PDF fact sheet at:https://www. [employer]/COVID- 19-RT-PCR UNLES S OTHERWISE INDICATED, ALL TESTING PERFORMED [facility], [facility]. [address] [place] [address] 4 HALL SUPERVISOR: TEMO DENNEY M.D. [place] NUMBER [id number] CAP ACCREDITATION N O. [id number]
[2022-05-20 20:31] LABS: SARS-COV-2 RT PCR NEGATIVE (NEGATIVE)
--- NOTE | 2022-05-20 21:10 | EDPHYS ---
Physician Documentation [facility] Name: Pedro Wright Age: 27 yrs Sex: Male : 1995 Arrival Date: 05/20/2022 Time: 18:45 Bed DIS2 Private MD: ED Physician Jared Rudolph HPI: 05/20 20:00 This 27 yrs old Male presents to ER via Ambulatory with complaints of Difficulty cp Swallowing, Sore Throat. 20:00 The patient presents with sore throat, dysphagia, of both solids and liquids. The cp patient describes throat pain as constant. Onset: The symptoms/episode began/occurred 4 day(s) ago. Severity of symptoms: in the emergency department the symptoms are unchanged, despite home interventions. Associated signs and symptoms: Pertinent positives: cough, Pertinent negatives diarrhea, fever, vomiting. Historical: - Allergies: 19:28 NKA; jl7 - Home Meds: 19:28 None [Active]; jl7 - PMHx: 19:28 ADD/ADHD; jl7 - PSHx: 19:28 ear; jl7 - Immunization history:: Client reports having NOT received the Covid vaccine. - Social history:: Smoking status: Patient reports the use of cigarette tobacco products, smokes one-half pack cigarettes per day. ROS: 20:05 Constitutional: Negative for body aches, chills, fever, poor PO intake. cp 20:05 Eyes: Negative for injury, pain, redness, and discharge. cp 20:05 ENT: Positive for difficulty swallowing, sore throat, Negative for drainage from ear(s), ear pain, difficulty handling secretions. 20:05 Respiratory: Positive for cough, Negative for shortness of breath, wheezing. 20:05 Abdomen/GI: Negative for abdominal pain, vomiting, diarrhea, constipation. 20:05 Neuro: Negative for altered mental status, headache, weakness. 20:05 All other systems are negative. Exam: 20:10 Constitutional: The patient appears in no acute distress, alert, awake, non-toxic, well cp developed, well nourished. 20:10 Head/Face: Normocephalic, atraumatic. cp 20:10 Eyes: Periorbital structures: appear normal, Conjunctiva: normal, no exudate, no injection, Sclera: no appreciated abnormality, Lids and lashes: appear normal, bilaterally. 20:10 ENT: External ear(s): are unremarkable, Ear canal(s): are normal, clear, TM's: dullness, bilaterally, Nose: is normal, Mouth: Lips: moist, Oral mucosa: moist, Posterior pharynx: Airway: no evidence of obstruction, patent, Tonsils: with erythema, no exudate, Uvula: midline, erythema, that is moderate, exudate, is not appreciated, Voice: is normal. 20:10 Neck: ROM/movement: is normal, is supple, no meningismus, no nuchal rigidity, Lymph nodes: lymphadenopathy is appreciated, anterior cervical nodes. 20:10 Chest/axilla: Inspection: normal. 20:10 Cardiovascular: Rate: normal, Rhythm: regular. 20:10 Respiratory: the patient does not display signs of respiratory distress, Respirations: normal, no use of accessory muscles, no retractions, labored breathing, is not present, Breath sounds: are clear throughout, no decreased breath sounds, no stridor, no wheezing. 20:10 Abdomen/GI: Exam negative for discomfort, distension, guarding, Inspection: abdomen appears normal. 20:10 Back: pain, is absent, ROM is normal. 20:10 Skin: no rash present. 20:10 Neuro: Orientation: to person, place \T\ time. Mentation: is normal. Vital Signs: 19:27 BP 156 / 87; Pulse 93; Resp 17; Temp 98.3; Pulse Ox 98% on R/A; Weight 77.11 kg; Height jl7 5 ft. 11 in. (180.34 cm); Pain 0/10; 19:27 Body Mass Index 23.71 (77.11 kg, 180.34 cm) jl7 MDM: 19:31 Patient medically screened. cp 21:00 Differential diagnosis: apthous stomatitis, group A strep tonsillitis, influenza, cp laryngitis, frederick's angina, mononucleosis, peritonsillar abscess pharyngitis, retropharyngeal abcess. 21:10 Data reviewed: vital signs, nurses notes, lab test result(s). cp 21:10 Test considered but Not performed: Labs: cbc, bmp. CT: soft tissue neck. Counseling: I cp had a detailed discussion with the patient and/or guardian regarding: the historical points, exam findings, and any diagnostic results supporting the discharge/admit diagnosis, lab results, to return to the emergency department if symptoms worsen or persist or if there are any questions or concerns that arise at home. 05/20 19:42 Order name: Strep cp 05/20 19:42 Order name: COVID-19/FLU A+B cp 05/20 20:04 Order name: Group A Streptococcus Rapid Sc EDMS 05/20 20:31 Order name: COVID-19/FLU A+B EDMS Administered Medications: No medications were administered Disposition Summary: 05/20/22 21:10 Discharge Ordered Location: Home cp Problem: new cp Symptoms: are unchanged cp Condition: Stable cp Diagnosis - Acute pharyngitis, unspecified cp - Cough cp Followup: cp - With: Private Physician - When: 2 - 3 days - Reason: Worsening of condition Discharge Instructions: - Discharge Summary Sheet cp - Pharyngitis cp - Cough, Adult cp - Form - Return To Work cp Forms: - Medication Reconciliation Form cp - Thank You Letter cp - Antibiotic Education cp - Prescription Opioid Use cp - Work release form mw2 Prescriptions: - Bromfed DM 2-30-10 mg/5 mL Oral syrup - take 10 milliliter by ORAL route every 6 hours; 180 milliliter; Refills: 0, cp Product Selection Permitted - Amoxicillin 875 mg Oral Tablet - take 1 tablet by ORAL route every 12 hours for 10 days; 20 tablet; Refills: 0, cp Product Selection Permitted Signatures: Dispatcher [employer] EDMS Jared Cota PA PA cp Leal, Jahala RN RN jl7
--- NOTE | 2022-05-20 21:10 | ER ---
Nurse's Notes [facility] Name: Pedro Wright Age: 27 yrs Sex: Male : 1995 Arrival Date: 05/20/2022 Time: 18:45 Bed DIS2 Private MD: Diagnosis: Acute pharyngitis, unspecified;Cough Presentation: 05/20 19:27 Chief complaint: Patient states: Pt eating chip in ED lobby prior to triage. Pt reports jl7 for 3-4 days throat has felt swollen and hard to swallow, denies difficulty breathing. Coronavirus screen: Vaccine status: Patient reports being unvaccinated. At this time, the client does not indicate any symptoms associated with coronavirus-19. Ebola Screen: No symptoms or risks identified at this time. Initial Sepsis Screen: Does the patient meet any 2 criteria? No. Patient's initial sepsis screen is negative. Does the patient have a suspected source of infection? No. Patient's initial sepsis screen is negative. Risk Assessment: Do you want to hurt yourself or someone else? Patient reports no desire to harm self or others. Onset of symptoms was May 16, 2022. 19:27 Method Of Arrival: Ambulatory jl7 19:27 Acuity: PEDRO 4 jl7 Triage Assessment: 19:28 General: Appears in no apparent distress. uncomfortable, Behavior is calm, cooperative, jl7 appropriate for age. Pain: Denies pain. EENT: Throat is clear. Historical: - Allergies: 19:28 NKA; jl7 - Home Meds: 19:28 None [Active]; jl7 - PMHx: 19:28 ADD/ADHD; jl7 - PSHx: 19:28 ear; jl7 - Immunization history:: Client reports having NOT received the Covid vaccine. - Social history:: Smoking status: Patient reports the use of cigarette tobacco products, smokes one-half pack cigarettes per day. Screenin:44 [facility] ED Fall Risk Assessment (Adult) History of falling in the last 3 months, kl including since admission No falls in past 3 months (0 pts) Confusion or Disorientation No (0 pts) Intoxicated or Sedated No (0 pts) Impaired Gait No (0 pts) Mobility Assist Device Used No (0 pt) Altered Elimination No (0 pt) Score/Fall Risk Level 0 - 2 = Low Risk Oriented to surroundings, Maintained a safe environment. Abuse screen: Denies threats or abuse. Nutritional screening: No deficits noted. Tuberculosis screening: No symptoms or risk factors identified. Assessment: 19:43 General: Appears in no apparent distress. comfortable, Behavior is calm, cooperative. kl Pain: Complains of pain in throat. Neuro: No deficits noted. Cardiovascular: No deficits noted. Respiratory: No deficits noted. Airway is patent Trachea midline Respiratory effort is even, unlabored, Breath sounds are clear bilaterally. GI: No deficits noted. No signs and/or symptoms were reported involving the gastrointestinal system. : No deficits noted. No signs and/or symptoms were reported regarding the genitourinary system. EENT: No deficits noted. No signs and/or symptoms were reported regarding the EENT system. Derm: No deficits noted. No signs and/or symptoms reported regarding the dermatologic system. 21:19 Reassessment: No changes from previously documented assessment. Patient and/or family mb9 updated on plan of care and expected duration. Pain level reassessed. Patient is alert, oriented x 3, equal unlabored respirations, skin warm/dry/pink. Vital Signs: 19:27 BP 156 / 87; Pulse 93; Resp 17; Temp 98.3; Pulse Ox 98% on R/A; Weight 77.11 kg; Height jl7 5 ft. 11 in. (180.34 cm); Pain 0/10; 19:27 Body Mass Index 23.71 (77.11 kg, 180.34 cm) jl7 ED Course: 18:45 Patient arrived in ED. rg4 18:46 [facility] cp 18:46 Christopher Quiroz MD is Attending Physician. cp 19:28 Triage completed. jl7 19:28 Arm band placed on right wrist. jl7 19:31 Attending Physician role handed off by Christopher Quiroz MD faby 19:31 Jared Rudolph MD is Attending Physician. faby 19:44 No provider procedures requiring assistance completed. kl 19:54 COVID-19/FLU A+B Sent. kl 19:54 Strep Sent. kl 21:19 Patient did not have IV access during this emergency room visit. mb9 Administered Medications: No medications were administered Outcome: 21:10 Discharge ordered by . cp 21:19 Discharged to home ambulatory. mb9 21:19 Condition: stable 21:19 Discharge instructions given to patient, Instructed on discharge instructions, follow up and referral plans. Demonstrated understanding of instructions, follow-up care, medications, Prescriptions given X 2. 21:20 Patient left the ED. mb9 Signatures: Bindu Thomas, RN Jared Henry MD MD cha Page, Corey, Shaina Swanson cp rg4 Rose Mary Love RN RN jl7 Guerline Bazzi RN RN mb9
[2022-05-20 21:27] VITALS: BP 156/87; TEMP 98.3; O2SAT 98
== END 2022-05-20 21:20 | disposition home or self-care (01) ==
LOC: ER 18:39
DX: J02.9 Acute pharyngitis, unspecified (principal); R05.9 Cough, unspecified; Z20.822 Contact with and (suspected) exposure to COVID-19
CPT/HCPCS: 0240U; 87070; 87081

== ENCOUNTER 2022-09-25 19:58 | Emergency (ER) | payer SELFPAY ==
--- OUTSIDE RECORDS SUMMARY | 2022-09-25 20:01 | XMS REPORT | Continuity of Care Document ---
:1995 Author Organization [facility] t Address [address] [place] [address] [place] [id number] Care Team Providers Name Role Phone Unavailable [...] S ARS-CoV-2 RNA DETECTEDPositive (test code = 82766) results are indicative of the presence of VERONIKA S-CoV-2 RNA;clinical co rrelation with patient history and other diagnosticinfor mation is necessary to de termine patient infection statu s.Positive results do not rule out bacterial infection or co -infectionwith other viruses. Positive and negative predic tive values oftesting are h ighly dependent on prevalence. SOURCE (test code = 52281) NASOPHARYNGEAL Note: Methodology is Odell Archie Real-Time [...] are provided by method given in report:https:// www.peerTransfer/cl inicians/client -communications/ Alternatively, see downloadable PDF fact sheet at:https://www. peerTransfer/COVID- 19-RT-PCR UNLES S OTHERWISE INDICATED, ALL TESTING PERFORMED [facility]. [address] [place] [address] 4 ORGAN TEACHER: TEMO DENNEY M.D. [place] NUMBER [id number] CAP ACCREDITATION N O. [id number]
--- NOTE | 2022-09-25 20:46 | ER ---
Nurse's Notes [facility] Name: Pedro Wright Age: 27 yrs Sex: Male : 1995 Arrival Date: 09/25/2022 Time: 19:58 Bed 12 Private MD: Diagnosis: Dental caries, unspecified Presentation: 09/25 20:33 Chief complaint: Patient states: I have had right sided upper and lower tooth pain for kd3 a few says and ibuprofen isn't cutting it anymore. I have a dental appointment on Thursday but i was hopping to possibly be prescribed some antibiotics here in the meantime. Coronavirus screen: Vaccine status: Patient reports being unvaccinated. Ebola Screen: No symptoms or risks identified at this time. Initial Sepsis Screen: Does the patient meet any 2 criteria? No. Patient's initial sepsis screen is negative. Does the patient have a suspected source of infection? No. Patient's initial sepsis screen is negative. Risk Assessment: Do you want to hurt yourself or someone else? Patient reports no desire to harm self or others. Onset of symptoms was September 25, 2022. 20:33 Method Of Arrival: Ambulatory kd3 20:33 Acuity: PEDRO 4 kd3 Triage Assessment: 20:35 General: Appears uncomfortable, Behavior is calm, cooperative. Pain: Complains of pain kd3 in upper right first molar, upper right second bicuspid, lower right first molar and lower right second molar. EENT: Reports pain in upper right second molar, upper right first molar, lower right second bicuspid, lower right first molar and lower right second molar. Historical: - Allergies: 20:35 NKA; kd3 - PMHx: 20:35 ADD/ADHD; kd3 - PSHx: 20:35 ear; kd3 - Immunization history:: Adult Immunizations up to date. - Social history:: Smoking status: Patient reports the use of cigarette tobacco products, smokes one-half pack cigarettes per day. Screenin:31 [facility] ED Fall Risk Assessment (Adult) History of falling in the last 3 months, kd3 including since admission No falls in past 3 months (0 pts) Confusion or Disorientation No (0 pts) Intoxicated or Sedated No (0 pts) Impaired Gait No (0 pts) Mobility Assist Device Used No (0 pt) Altered Elimination No (0 pt) Score/Fall Risk Level 0 - 2 = Low Risk Maintained a safe environment. Abuse screen: Denies threats or abuse. Denies injuries from another. Nutritional screening: No deficits noted. Tuberculosis screening: No symptoms or risk factors identified. Vital Signs: 20:33 BP 153 / 93; Pulse 75; Resp 16; Temp 98.2(O); Pulse Ox 98% on R/A; Weight 79.38 kg; kd3 Height 5 ft. 11 in. ; 21:24 BP 152 / 95; Pulse 78; Resp 19; Pulse Ox 100% on R/A; kd3 20:33 Body Mass Index 24.41 (79.38 kg, 180.34 cm) kd3 ED Course: 20:01 Patient arrived in ED. 2 20:22 Celio Reilly PA is PHCP. [facility] 20:22 Berry Jaime MD is Attending Physician. [facility] 20:35 Triage completed. kd3 20:35 Arm band placed on right wrist. kd3 20:36 Tish Martinez RN is Primary Nurse. kd3 21:31 No provider procedures requiring assistance completed. Patient did not have IV access kd3 during this emergency room visit. 21:32 Patient has correct armband on for positive identification. kd3 Administered Medications: 20:45 Drug: Amoxicillin-Clavulanate PO 875 mg Route: PO; kd3 21:31 Follow up: Response: No adverse reaction kd3 Medication: 21:32 VIS not applicable for this client. kd3 Outcome: 20:46 Discharge ordered by . [facility] 21:32 Discharged to home ambulatory. kd3 21:32 Condition: stable 21:32 Discharge instructions given to patient, Instructed on discharge instructions, follow up and referral plans. medication usage, Demonstrated understanding of instructions, follow-up care, medications, Prescriptions given X 3. 21:32 Patient left the ED. kd3 Signatures: eClio Reilly PA PA Anjana Martínez [facility] Tish Martinez, RN RN kd3
--- NOTE | 2022-09-25 20:47 | EDPHYS ---
Physician Documentation [facility] Name: Pedro Wright Age: 27 yrs Sex: Male : 1995 Arrival Date: 09/25/2022 Time: 19:58 Bed 12 Private MD: ED Physician Berry Jaime HPI: 09/25 20:43 This 27 yrs old Male presents to ER via Ambulatory with complaints of Toothache. jmm 20:43 The patient presents with pain. Onset: The symptoms/episode began/occurred gradually. jmm Duration: The symptoms are continuous. Modifying factors: The symptoms are alleviated by nothing, the symptoms are aggravated by nothing. Associated signs and symptoms: Pertinent negatives: fever. Historical: - Allergies: 20:35 NKA; kd3 - PMHx: 20:35 ADD/ADHD; kd3 - PSHx: 20:35 ear; kd3 - Immunization history:: Adult Immunizations up to date. - Social history:: Smoking status: Patient reports the use of cigarette tobacco products, smokes one-half pack cigarettes per day. ROS: 20:43 Constitutional: Negative for fever, chills, and weight loss. jmm 20:43 ENT: Positive for dental pain. 20:43 All other systems are negative. Exam: 20:43 Constitutional: This is a well developed, well nourished patient who is awake, alert, jmm and in no acute distress. Head/Face: atraumatic. Eyes: EOMI, no conjunctival erythema appreciated 20:43 Chest/axilla: Normal chest wall appearance and motion. Cardiovascular: Regular rate and rhythm. No edema appreciated Respiratory: Normal respirations, no respiratory distress appreciated Abdomen/GI: Non distended Back: Normal ROM Skin: General appearance color normal MS/ Extremity: Moves all extremities, no obvious deformities appreciated, no edema noted to the lower extremities Neuro: Awake and alert Psych: Behavior is normal, Mood is normal, Patient is cooperative and pleasant 20:43 ENT: Dental exam: dental caries, that is severe, specifically in the upper right first molar (#3), upper right second bicuspid (#4), upper right first bicuspid (#5) and upper right cuspid (#6). Vital Signs: 20:33 BP 153 / 93; Pulse 75; Resp 16; Temp 98.2(O); Pulse Ox 98% on R/A; Weight 79.38 kg; kd3 Height 5 ft. 11 in. ; 21:24 BP 152 / 95; Pulse 78; Resp 19; Pulse Ox 100% on R/A; kd3 20:33 Body Mass Index 24.41 (79.38 kg, 180.34 cm) kd3 MDM: 20:40 Patient medically screened. [facility] 20:45 Differential diagnosis: dental caries, gingivitis, dental abscess. Data reviewed: vital [facility] signs, nurses notes. Counseling: I had a detailed discussion with the patient and/or guardian regarding: the historical points, exam findings, and any diagnostic results supporting the discharge/admit diagnosis, the need for outpatient follow up, to return to the emergency department if symptoms worsen or persist or if there are any questions or concerns that arise at home. Administered Medications: 20:45 Drug: Amoxicillin-Clavulanate PO 875 mg Route: PO; kd3 21:31 Follow up: Response: No adverse reaction kd3 Disposition: 09/26 05:23 Co-signature as Attending Physician, Berry Jaime MD I agree with the assessment sp4 and plan of care. I reviewed the patient's care provided by the Advanced Practice Provider and agree with the diagnosis and treatment plan. Disposition Summary: 09/25/22 20:46 Discharge Ordered Location: Home [facility] Condition: Stable [facility] Diagnosis - Dental caries, unspecified [facility] Followup: jm - With: Private Physician - When: 2 - 3 days - Reason: Recheck today's complaints, Continuance of care, Re-evaluation by your physician Discharge Instructions: - Discharge Summary Sheet [facility] - Dental Caries, Adult [facility] Forms: - Medication Reconciliation Form [facility] - Thank You Letter [facility] - Antibiotic Education [facility] - Prescription Opioid Use [facility] - Work release form kd3 Prescriptions: - Peridex 0.12 % Mucous Membrane Mouthwash - swish 15 milliliter by BUCCAL route 2 times per day; 475 milliliter; Refills: [facility] 0, Product Selection Permitted - Amoxicillin 875 mg Oral Tablet - take 1 tablet by ORAL route every 12 hours for 10 days; 20 tablet; Refills: 0, [facility] Product Selection Permitted - Diclofenac Sodium 75 mg Oral Tablet Sustained Release - take 1 tablet by ORAL route 2 times per day; 30 tablet; Refills: 0, Product [facility] Selection Permitted Signatures: Celio Reilly PA PA jmm Doucette, Kyli, RN RN kd3 Berry Jaime MD MD sp4
[2022-09-25] MEDS ORDERED: AMOX/K CLAV 875 MG TAB ONE (20:55)
[2022-09-25 21:44] VITALS: TEMP 98.2
[2022-09-25 21:46] VITALS: BP 152/95; O2SAT 100
== END 2022-09-25 21:32 | disposition home or self-care (01) ==
LOC: ER 19:58
DX: K02.9 Dental caries, unspecified (principal)
CPT/HCPCS: 99283

== ENCOUNTER 2022-12-03 13:11 | Emergency (ER) | payer SELFPAY ==
--- OUTSIDE RECORDS SUMMARY | 2022-12-03 13:14 | XMS REPORT | Continuity of Care Document ---
:1995 Author Organization [facility] t Address [address] [place] [address] [place] [id number] Care Team Providers Name Role Phone Unavailable [...] S ARS-CoV-2 RNA DETECTEDPositive (test code = 39545) results are indicative of the presence of VERONIKA S-CoV-2 RNA;clinical co rrelation with patient history and other diagnosticinfor mation is necessary to de termine patient infection statu s.Positive results do not rule out bacterial infection or co -infectionwith other viruses. Positive and negative predic tive values oftesting are h ighly dependent on prevalence. SOURCE (test code = 77975) NASOPHARYNGEAL Note: Methodology is Oedll Archie Real-Time RT-PC R. The expected result [...] are provided by method given in report:https:// www.[employer]/cl inicians/client -communications/ Alternatively, see downloadable PDF fact sheet at:https://www. [employer]/COVID- 19-RT-PCR UNLES S OTHERWISE INDICATED, ALL TESTING PERFORMED [facility], [facility] [address] [place] [address] 4 INDUSTRIAL EDUCATION INSTRUCTOR: TEMO DENNEY M.D. [place] NUMBER [id number] CAP ACCREDITATION N O. [id number]
[2022-12-03 13:36] LABS: Hematocrit 47.8 % (39.6-49.0); Lymphocytes % 21.5 % (15.3-44.8); MCV 88.2 fL (80-100); MPV 8.4 fL (7.6-11.3); Platelets 288 thou/uL (152-406); RBC Red Blood Cell Count 5.42 M/uL (4.33-5.43)
[2022-12-03 13:41] LABS: Protime INR 0.98
--- NOTE | 2022-12-03 13:43 | RAD REPORT ---
EXAM DESCRIPTION: CT - Head Brain Wo Cont - 12/03/2022 1:34 pm CLINICAL HISTORY: Headache COMPARISON: 2014 TECHNIQUE: Computed axial tomography of the head was obtained. IV contrast was not requested. All CT scans are performed using dose optimization technique as appropriate and may include automated exposure control or mA/KV adjustment according to patient size. FINDINGS: An intracranial bleed is not seen The ventricles are normal in caliber No significant hypodense areas within the brain visualized No extra-axial fluid collection is noted. Fluid within the sinuses/ mastoids is not seen IMPRESSION: No acute intracranial abnormality is seen If patient's symptoms persist MRI of the brain would be recommended
[2022-12-03 13:56] LABS: Magnesium 2.5 mg/dL (1.6-2.4); Potassium 3.6 mEq/L (3.5-5.1); Troponin High Sensitivity 11.1 pg/mL (<58.9)
--- NOTE | 2022-12-03 14:07 | RAD REPORT ---
EXAM DESCRIPTION: Nicole Single View12/03/2022 1:47 pm CLINICAL HISTORY: Chest pain COMPARISON: 2020 FINDINGS: The lungs appear clear of acute infiltrate. The heart is normal size IMPRESSION: No acute abnormalities displayed
[2022-12-03] MEDS ORDERED: ASPIRIN 81 MG CHEWABLE TABLET ONE (14:25)
[2022-12-03] MEDS ORDERED: lisinopriL 10 MG TAB ONE (14:26)
--- NOTE | 2022-12-03 17:29 | ER ---
Nurse's Notes [facility] Name: Pedro Wright Age: 27 yrs Sex: Male : 1995 Arrival Date: 12/03/2022 Time: 13:11 Bed 20 Private MD: Diagnosis: Hypertensive heart disease without heart failure;Chest pain, unspecified Presentation: 12/03 13:20 Chief complaint: Patient states: he checked his blood pressure Joe and yesterday, ap3 both of which were high. patient states his systolic was over 200 both times he checked it. patient reports having a headache all day today as well. Coronavirus screen: At this time, the client does not indicate any symptoms associated with coronavirus-19. Ebola Screen: No symptoms or risks identified at this time. Initial Sepsis Screen: Does the patient meet any 2 criteria? No. Patient's initial sepsis screen is negative. Does the patient have a suspected source of infection? No. Patient's initial sepsis screen is negative. Risk Assessment: Do you want to hurt yourself or someone else? Patient reports no desire to harm self or others. Onset of symptoms is unknown. 13:20 Method Of Arrival: Ambulatory ap3 13:20 Acuity: PEDRO 3 ap3 Triage Assessment: 13:22 General: Appears in no apparent distress. Behavior is calm, cooperative, appropriate ap3 for age. Pain: Denies pain. Neuro: Level of Consciousness is awake, alert, obeys commands, Oriented to person, place, time, situation. Neuro: Reports headache. Cardiovascular: Patient's skin is warm and dry. Respiratory: Airway is patent Respiratory effort is even, unlabored, Respiratory pattern is regular, symmetrical. Historical: - Allergies: 13:22 NKA; ap3 - Home Meds: 13:22 None [Active]; ap3 - PMHx: 13:22 ADD/ADHD; ap3 - Immunization history:: Client reports having NOT received the Covid vaccine. - Social history:: Smoking status: Patient reports the use of cigarette tobacco products, smokes one-half pack cigarettes per day. Screenin:23 [facility] ED Fall Risk Assessment (Adult) History of falling in the last 3 months, ap3 including since admission No falls in past 3 months (0 pts). Abuse screen: Denies threats or abuse. Nutritional screening: No deficits noted. Tuberculosis screening: No symptoms or risk factors identified. Assessment: 13:29 Reassessment: No changes from previously documented assessment. Patient and/or family ld1 updated on plan of care and expected duration. Pain level reassessed. Patient is alert, oriented x 3, equal unlabored respirations, skin warm/dry/pink. See triage assessment. General: Appears in no apparent distress. comfortable, Behavior is calm, cooperative, appropriate for age. Pain: Complains of pain in chest Pain does not radiate. Pain currently is 7 out of 10 on a pain scale. Quality of pain is described as throbbing. Neuro: Level of Consciousness is awake, alert, obeys commands, Oriented to person, place, time, situation. Cardiovascular: Capillary refill < 3 seconds Patient's skin is warm and dry. Rhythm is sinus rhythm. Respiratory: Airway is patent Respiratory effort is even, unlabored. Vital Signs: 13:20 BP 186 / 118; Pulse 87; Resp 17; Temp 98.4; Pulse Ox 99% ; Weight 79.38 kg; Height 5 ap3 ft. 11 in. ; 13:29 BP 174 / 94; Pulse 93; Resp 18; Pulse Ox 98% on R/A; ld1 14:18 BP 174 / 101; Pulse 81; Resp 18; Pulse Ox 100% on R/A; ld1 16:17 BP 149 / 78; Pulse 73; Resp 18; Pulse Ox 100% on R/A; ld1 13:20 Body Mass Index 24.41 (79.38 kg, 180.34 cm) ap3 ED Course: 13:14 Patient arrived in ED. mr 13:14 Jared Cota PA is PHCP. cp 13:14 Sim Vance MD is Attending Physician. cp 13:20 Priya Veloz, BENSON is Primary Nurse. ld1 13:22 Triage completed. ap3 13:23 Arm band placed on right wrist. ap3 13:23 Patient has correct armband on for positive identification. Bed in low position. Call ap3 light in reach. Side rails up X 1. 13:29 No provider procedures requiring assistance completed. Inserted saline lock: 20 gauge ld1 in right forearm, using aseptic technique. Blood collected. 13:36 CT Head Brain wo Cont In Process Unspecified. EDMS 13:49 XRAY Chest (1 view) In Process Unspecified. EDMS 17:27 Kenneth Ocasio MD is Referral Physician. cp 17:41 IV discontinued, intact, bleeding controlled, No redness/swelling at site. hb Administered Medications: 14:17 Drug: Aspirin PO Chewable Tablet 324 mg Route: PO; ld1 14:17 Drug: Lisinopril PO 10 mg Route: PO; ld1 14:40 Drug: hydrALAZINE IVP 10 mg Route: IVP; Site: right forearm; ld1 17:41 Drug: Acetaminophen PO 650 mg Route: PO; hb Medication: 13:29 VIS not applicable for this client. ld1 Outcome: 17:28 Discharge ordered by MD. cp 17:41 Discharged to home ambulatory. hb 17:41 Condition: stable 17:41 Discharge instructions given to patient, Instructed on discharge instructions, follow up and referral plans. medication usage, Demonstrated understanding of instructions, follow-up care, medications, Prescriptions given X 1. 17:41 Patient left the ED. Signatures: Dispatcher [employer] [facility] Guerline Watson mr Jared Cota, KAIN PA Milly Gastelum, RN RN Laura Ramsay RN RN ap3 Priya Veloz RN RN ld1
--- NOTE | 2022-12-03 17:29 | EDPHYS ---
Physician Documentation [facility] Name: Pedro Wright Age: 27 yrs Sex: Male : 1995 Arrival Date: 12/03/2022 Time: 13:11 Bed 20 Private MD: ED Physician Sim Vance HPI: 12/03 13:30 This 27 yrs old Male presents to ER via Ambulatory with complaints of High Blood cp Pressure. 13:30 The patient has elevated blood pressure and discovered this at home. Onset: The cp symptoms/episode began/occurred last week. Associated signs and symptoms: Pertinent positives: chest pain, headache, Pertinent negatives: dizziness, vomiting, weakness. Severity of symptoms: At its worst the blood pressure was 200 mm Hg. Historical: - Allergies: 13:22 NKA; ap3 - Home Meds: 13:22 None [Active]; ap3 - PMHx: 13:22 ADD/ADHD; ap3 - Immunization history:: Client reports having NOT received the Covid vaccine. - Social history:: Smoking status: Patient reports the use of cigarette tobacco products, smokes one-half pack cigarettes per day. ROS: 13:35 Constitutional: Negative for body aches, chills, fever, poor PO intake. cp 13:35 Eyes: Negative for injury, pain, redness, and discharge. cp 13:35 ENT: Negative for drainage from ear(s), ear pain, sore throat, difficulty swallowing, difficulty handling secretions. 13:35 Cardiovascular: Positive for chest pain, Negative for palpitations. 13:35 Respiratory: Negative for cough, shortness of breath, wheezing. 13:35 Abdomen/GI: Negative for abdominal pain, vomiting, diarrhea, constipation, black/tarry stool, rectal bleeding. 13:35 Neuro: Positive for headache, Negative for altered mental status, dizziness, numbness, syncope, weakness. 13:35 All other systems are negative. cp Exam: 13:33 ECG was reviewed by the Attending Physician. cp 13:40 Constitutional: The patient appears in no acute distress, alert, awake, cp non-diaphoretic, non-toxic, well developed, well nourished. 13:40 Head/Face: Normocephalic, atraumatic. cp 13:40 Eyes: Periorbital structures: appear normal, Pupils: equal, round, and reactive to light and accomodation, Extraocular movements: intact throughout, Conjunctiva: normal, no exudate, no injection, Sclera: no appreciated abnormality, Lids and lashes: appear normal, bilaterally. 13:40 ENT: External ear(s): are unremarkable, Nose: is normal, Mouth: Lips: moist, Oral mucosa: pink and intact, moist, Posterior pharynx: is normal, airway is patent, no erythema, no exudate. 13:40 Neck: ROM/movement: is normal, is supple, without pain, no range of motions limitations. 13:40 Chest/axilla: Inspection: normal, Palpation: is normal, no crepitus, no tenderness. 13:40 Cardiovascular: Rate: normal, Rhythm: regular, Edema: is not appreciated. 13:40 Respiratory: the patient does not display signs of respiratory distress, Respirations: normal, no use of accessory muscles, no retractions, labored breathing, is not present, Breath sounds: are clear throughout, no decreased breath sounds, no stridor, no wheezing. 13:40 Abdomen/GI: Inspection: abdomen appears normal, Palpation: abdomen is soft and non-tender, in all quadrants. 13:40 Back: pain, is absent, ROM is normal. 13:40 Skin: no rash present. 13:40 Neuro: Orientation: to person, place \T\ time. Mentation: is normal, Cerebellar function: is grossly normal, Motor: moves all fours, strength is normal, Sensation: is normal, Gait: is steady. 16:44 ECG was reviewed by the Attending Physician. cp Vital Signs: 13:20 BP 186 / 118; Pulse 87; Resp 17; Temp 98.4; Pulse Ox 99% ; Weight 79.38 kg; Height 5 ap3 ft. 11 in. ; 13:29 BP 174 / 94; Pulse 93; Resp 18; Pulse Ox 98% on R/A; ld1 14:18 BP 174 / 101; Pulse 81; Resp 18; Pulse Ox 100% on R/A; ld1 16:17 BP 149 / 78; Pulse 73; Resp 18; Pulse Ox 100% on R/A; ld1 13:20 Body Mass Index 24.41 (79.38 kg, 180.34 cm) ap3 MDM: 13:22 Patient medically screened. cp 17:28 Data reviewed: vital signs, nurses notes, lab test result(s), EKG, radiologic studies, cp CT scan, plain films. 17:28 Differential diagnosis: hypertensive crisis, Malignant HTN, CVA, intracerebral cp hemorrhage, acute ND. I considered the following discharge prescriptions or medication management in the emergency department Medications were administered in the Emergency Department. See MAR. Independent interpretation of the following test(s) in the Emergency Department EKG: See my EKG interpretation above. 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 Response to treatment: the patient's symptoms have markedly improved after treatment, and as a result, I will discharge patient. Special discussion: Based on the patient's history, exam, and Dx evaluation, there is no indication for emergent intervention or inpatient Tx. It is understood by the patient/guardian that if the Sx's persist or worsen they need to return immediately for re-evaluation. 12/03 13:26 Order name: Basic Metabolic Panel; Complete Time: 14:11 12/03 14:11 Interpretation: Normal except: GLUC 120; CRE 1.52; GFR 63. 12/03 13:26 Order name: CBC with Diff; Complete Time: 14:11 12/03 13:26 Order name: D-Dimer; Complete Time: 14:11 12/03 13:26 Order name: Magnesium; Complete Time: 14:11 12/03 17:22 Interpretation: Reviewed. 12/03 13:26 Order name: PT-INR; Complete Time: 14:11 12/03 13:26 Order name: Troponin HS; Complete Time: 14:11 12/03 16:24 Order name: Troponin High Sensitivity; Complete Time: 17:14 12/03 13:26 Order name: XRAY Chest (1 view); Complete Time: 14:11 12/03 13:26 Order name: CT Head Brain wo Cont; Complete Time: 14:11 12/03 13:26 Order name: EKG; Complete Time: 13:26 cp 12/03 16:24 Order name: EKG; Complete Time: 16:24 cp 12/03 13:26 Order name: Cardiac monitoring; Complete Time: cp 12/03 13:26 Order name: EKG - Nurse/Tech; Complete Time: cp 12/03 13:26 Order name: IV Saline Lock; Complete Time: cp 12/03 13:26 Order name: Labs collected and sent; Complete Time: cp 12/03 13:26 Order name: O2 Per Protocol; Complete Time: cp 12/03 13:26 Order name: O2 Sat Monitoring; Complete Time: : cp 12/03 16:24 Order name: EKG - Nurse/Tech; Complete Time: 16:40 cp EC:33 Rate is 88 beats/min. Rhythm is regular. DE interval is normal. QRS interval is normal. cp QT interval is normal. Interpreted by me. Reviewed by me. 16:44 Rate is 70 beats/min. Rhythm is regular. DE interval is normal. QRS interval is normal. cp QT interval is normal. T waves are Inverted in lead aVR. Interpreted by me. Reviewed by me. Administered Medications: 14:17 Drug: Aspirin PO Chewable Tablet 324 mg Route: PO; ld1 14:17 Drug: Lisinopril PO 10 mg Route: PO; ld1 14:40 Drug: hydrALAZINE IVP 10 mg Route: IVP; Site: right forearm; ld1 17:41 Drug: Acetaminophen PO 650 mg Route: PO; hb Disposition Summary: 12/03/22 17:28 Discharge Ordered Location: Home cp Problem: new cp Symptoms: have improved cp Condition: Stable cp Diagnosis - Hypertensive heart disease without heart failure cp - Chest pain, unspecified cp Followup: cp - With: Kenneth Ocasio MD - When: 2 - 3 days - Reason: Recheck today's complaints Discharge Instructions: - Discharge Summary Sheet cp - Nonspecific Chest Pain, Adult cp - Hypertension, Adult cp - Aspirin and Your Heart cp - Form - Blood Pressure Record Sheet cp - How to Take Your Blood Pressure cp Forms: - Medication Reconciliation Form cp - Thank You Letter cp - Antibiotic Education cp - Prescription Opioid Use cp - Patient Portal Instructions cp - Leadership Thank You Letter cp - Work release form ld1 Prescriptions: - Lisinopril 10 mg Oral Tablet - take 1 tablet by ORAL route once daily; 30 tablet; Refills: 0, Product cp Selection Permitted Signatures: Dispatcher [employer] EDJared Alvarez PA PA cp Milly Gastelum RN RN Laura Ramsay RN RN ap3 Priya Veloz RN RN ld1 Corrections: (The following items were deleted from the chart) 12/04 17:22 12/03 13:35 All other systems are negative, cp cp
[2022-12-03] MEDS ORDERED: ACETAMINOPHEN 325 MG TABLET ONE (17:49)
[2022-12-03 17:56] VITALS: TEMP 98.4
[2022-12-03 18:07] VITALS: O2SAT 100
[2022-12-03 18:08] VITALS: BP 149/78
--- NOTE | 2022-12-04 12:05 | EKG ---
Test Date: 2022-12-03 Test Time: 13:27:52 Reporting Analyst: HB MEASUREMENT RESULTS: Intervals: Rate: 88 DE: 124 QRSD: 92 QT: 364 QTc: 440 [place]: P: 42 DE: 124 QRS: 43 T: 52 INTERPRETIVE STATEMENTS: Normal sinus rhythm Possible Left atrial enlargement Nonspecific T wave abnormality Abnormal ECG Compared to ECG 12/21/2020 10:30:23 T-wave abnormality now present Electronically Signed On 12-04-22 12:03:39 CDT by Kenneth Ocasio
--- NOTE | 2022-12-04 12:05 | EKG ---
Test Date: 2022-12-03 Test Time: 16:38:14 Crackling Press Operator: Benita MILAN MEASUREMENT RESULTS: Intervals: Rate: 70 ND: 116 QRSD: 92 QT: 412 QTc: 444 [place]: P: 33 ND: 116 QRS: 57 T: 50 INTERPRETIVE STATEMENTS: Normal sinus rhythm Nonspecific ST and T wave abnormality Abnormal ECG Compared to ECG 12/03/2022 13:27:52 ST (T wave) deviation now present T-wave abnormality no longer present Electronically Signed On 12-04-22 12:03:24 CDT by Kenneth Ocasio
== END 2022-12-03 17:41 | disposition home or self-care (01) ==
LOC: ER 13:11
DX: I11.9 Hypertensive heart disease without heart failure (principal)
CPT/HCPCS: 36415; 70450; 71045; 80048; 83735; 84484; 85025; 85379; 85610; 93005

== ENCOUNTER 2022-12-19 09:58 | Emergency (ER) | payer SELFPAY ==
--- OUTSIDE RECORDS SUMMARY | 2022-12-19 10:01 | XMS REPORT | Continuity of Care Document ---
:1995 [address] [facility] [place] t Address [address] [place] [address] [place] [id number] Care Team Providers Name Role Phone Unavailable [...] S ARS-CoV-2 RNA DETECTEDPositive (test code = 88325) results are indicative of the presence of VERONIKA S-CoV-2 RNA;clinical co rrelation with patient history and other diagnosticinfor mation is necessary to de termine patient infection statu s.Positive results do not rule out bacterial infection or co -infectionwith other viruses. Positive and negative predic tive values oftesting are h ighly dependent on prevalence. SOURCE (test code = 87937) NASOPHARYNGEAL Note: Methodology is Odell Archie Real-Time [...] are provided by method given in report:https:// [email or web address] [email or web address]/client -communications/ Alternatively, see downloadable PDF fact sheet at:https://[email or web address]. [email or web address]/[email or web address]- [email or web address]-PCR UNLES S OTHERWISE INDICATED, ALL TESTING PERFORMED [facility], [facility]. [address] [place] [address] 4 PHD INTERNSHIP: TEMO DENNEY M.D. [place] NUMBER [id number] CAP ACCREDITATION N O. [id number]
[2022-12-19 10:46] LABS: Absolute Lymphocytes (CBC) 2.2 K/uL (0.7-4.9); Hematocrit 40.8 % (39.6-49.0); Lymphocytes % 13.6 % (15.3-44.8); MCV 87.7 fL (80-100); MPV 8.6 fL (7.6-11.3); Platelets 272 thou/uL (152-406); RBC Red Blood Cell Count 4.66 M/uL (4.33-5.43)
[2022-12-19 10:56] LABS: Magnesium 2.1 mg/dL (1.6-2.4); Potassium 3.6 mEq/L (3.5-5.1); Troponin High Sensitivity 6.8 pg/mL (<58.9)
--- NOTE | 2022-12-19 11:12 | RAD REPORT ---
EXAM DESCRIPTION: RAD - Chest Pa And Lat (2 Views) - 12/19/2022 10:41 am CLINICAL HISTORY: CHEST PAIN COMPARISON: Chest Single View dated 12/03/2022; Chest Single View dated 12/21/2020; Abdomen 1 View ([facility] B) dated 08/28/2017 TECHNIQUE: PA and lateral views of the chest were obtained. FINDINGS: The lungs are clear. Heart size is normal and central vasculature is within normal limits. No pleural effusion or pneumothorax seen. No acute bony finding noted. IMPRESSION: No acute cardiopulmonary process.
--- NOTE | 2022-12-19 11:22 | ER ---
Nurse's Notes [facility] Name: Pedro Wright Age: 27 yrs Sex: Male : 1995 Arrival Date: 12/19/2022 Time: 09:58 Bed 14 Private MD: Diagnosis: Chest pain, unspecified;Elevated blood-pressure reading, without diagnosis of hypertension;Elevated WBC Presentation: 12/19 10:12 Chief complaint: Right upper chest pain x 3 days. Pain is worse with deep breathing. hb Coronavirus screen: At this time, the client does not indicate any symptoms associated with coronavirus-19. Ebola Screen: No symptoms or risks identified at this time. Initial Sepsis Screen: Does the patient meet any 2 criteria? No. Patient's initial sepsis screen is negative. Does the patient have a suspected source of infection? No. Patient's initial sepsis screen is negative. Risk Assessment: Do you want to hurt yourself or someone else? Patient reports no desire to harm self or others. Onset of symptoms was December 17, 2022. 10:12 Method Of Arrival: Wheelchair hb 10:12 Acuity: PEDRO 3 hb Historical: - Allergies: 10:14 NKA; hb - Home Meds: 10:14 None [Active]; hb - PMHx: 10:14 ADD/ADHD; hb - PSHx: 10:14 ear; hb - Immunization history:: Adult Immunizations up to date. - Social history:: Smoking status: Patient reports the use of cigarette tobacco products, smokes one pack cigarettes per day. Screenin:17 [facility] ED Fall Risk Assessment (Adult) History of falling in the last 3 months, ap3 including since admission No falls in past 3 months (0 pts). Abuse screen: Denies threats or abuse. Nutritional screening: No deficits noted. Tuberculosis screening: No symptoms or risk factors identified. Assessment: 11:45 General: Appears in no apparent distress. Behavior is calm, cooperative, appropriate ap3 for age. Pain: Complains of pain in anterior aspect of right upper chest and right breast Pain does not radiate. Pain began gradually. Neuro: Level of Consciousness is awake, alert, obeys commands, Oriented to person, place, time, situation. Cardiovascular: Reports chest pain. Respiratory: Airway is patent Respiratory effort is even, unlabored, Respiratory pattern is regular, symmetrical. Vital Signs: 10:12 BP 153 / 106; Pulse 91; Resp 15; Temp 98.4; Pulse Ox 100% on R/A; Weight 68.04 kg; hb Height 5 ft. 8 in. ; Pain 7/10; 10:12 Body Mass Index 22.81 (68.04 kg, 172.72 cm) hb 10:12 Pain Scale: Adult hb ED Course: 10:02 Patient arrived in ED. mg5 10:06 Bob Veloz DO is Attending Physician. ms3 10:08 EKG completed in triage. Results shown to MD. hb 10:14 Triage completed. hb 10:14 Arm band placed on. hb 10:17 clinical research monitor on. Pulse ox on. NIBP on. ap3 10:17 EKG done, by ED staff, reviewed by Bob Veloz DO. ap3 10:26 Inserted saline lock: 20 gauge in right antecubital area, using aseptic technique. bc6 Blood collected. 10:43 Chest Pa And Lat (2 Views) XRAY In Process Unspecified. EDMS 11:20 Ernie Horan MD is Referral Physician. ms3 11:45 Laura Ramsay, RN is Primary Nurse. ap3 11:45 No provider procedures requiring assistance completed. IV discontinued, intact, ap3 bleeding controlled, No redness/swelling at site. Pressure dressing applied. Patient maintains SpO2 saturation greater than 95% on room air. 11:46 Patient has correct armband on for positive identification. Placed in gown. Bed in low ap3 position. Call light in reach. 11:46 Provided Education on: discharge instructions. ap3 Administered Medications: No medications were administered Medication: 11:46 VIS not applicable for this client. ap3 Outcome: 11:21 Discharge ordered by . ms3 11:46 Discharged to home ambulatory. ap3 11:46 Condition: good 11:46 Discharge instructions given to patient, Instructed on discharge instructions, follow up and referral plans. Demonstrated understanding of instructions, follow-up care. 11:51 Patient left the ED. ap3 Signatures: Dispatcher [employer] EDMS Milly Gastelum RN RN hb Prokisch, Amanda RN RN ap3 Bob Veloz DO DO ms3 Shruthi Hannon bc6 Shira Ross mg5
--- NOTE | 2022-12-19 11:22 | EDPHYS ---
Physician Documentation [facility] Name: Pedro Wright Age: 27 yrs Sex: Male : 1995 Arrival Date: 12/19/2022 Time: 09:58 Bed 14 Private MD: ED Physician Bob Veloz HPI: 12/19 11:22 This 27 yrs old Male presents to ER via Wheelchair with complaints of Chest Pain. ms3 11:22 27-year-old male with past medical history of ADD/ADHD presents for chest pain that ms3 began Thursday. Patient states the pain is worse when drinking, eating, or taking deep breaths. Patient rates the pain currently a 2/10. Patient endorses cough. Patient denies alleviating factors.. Historical: - Allergies: 10:14 NKA; hb - Home Meds: 10:14 None [Active]; hb - PMHx: 10:14 ADD/ADHD; hb - PSHx: 10:14 ear; hb - Immunization history:: Adult Immunizations up to date. - Social history:: Smoking status: Patient reports the use of cigarette tobacco products, smokes one pack cigarettes per day. ROS: 10:17 Constitutional: Negative for fever, and chills. Neck: Negative for injury, pain, and ms3 swelling. 10:17 Skin: Negative for injury, rash, and discoloration. 10:17 Cardiovascular: Positive for chest pain. 10:17 Respiratory: Positive for cough. 10:17 All other systems are negative. Exam: 10:17 Constitutional: This is a well developed, well nourished patient who is awake, alert, ms3 and in no acute distress. Head/Face: Normocephalic, atraumatic. Neck: Trachea midline, no cervical lymphadenopathy. Supple, full range of motion without nuchal rigidity, or vertebral point tenderness. No Meningismus. Chest/axilla: Normal chest wall appearance and motion. Nontender with no deformity. Cardiovascular: Regular rate and rhythm with a normal S1 and S2. No gallops, murmurs, or rubs. Normal PMI, no JVD. No pulse deficits. Respiratory: Lungs have equal breath sounds bilaterally, clear to auscultation and percussion. No rales, rhonchi or wheezes noted. No increased work of breathing, no retractions or nasal flaring. Abdomen/GI: Soft, non-tender, with normal bowel sounds. No distension or tympany. No guarding or rebound. No evidence of tenderness throughout. Skin: Warm, dry with normal turgor. Normal color with no rashes, no lesions, and no evidence of cellulitis. MS/ Extremity: Pulses equal, no cyanosis. Neurovascular intact. Full, normal range of motion. 10:17 ECG was reviewed by the Attending Physician. Vital Signs: 10:12 BP 153 / 106; Pulse 91; Resp 15; Temp 98.4; Pulse Ox 100% on R/A; Weight 68.04 kg; hb Height 5 ft. 8 in. ; Pain 7/10; 10:12 Body Mass Index 22.81 (68.04 kg, 172.72 cm) hb 10:12 Pain Scale: Adult hb MDM: 10:15 Patient medically screened. ms3 10:17 Differential diagnosis: abnormal EKG, acute myocardial infarction, acute pericarditis, ms3 anxiety, pneumonia, pneumothorax. 10:58 Independent interpretation of the following test(s) in the Emergency Department X-Ray: ms3 My interpretation is CXR images reviewed by me do not reveal PNA.. 10:58 Independent interpretation of the following test(s) in the Emergency Department EKG: ms3 See my EKG interpretation above. 11:22 HEART Score: History: Slightly Suspicious (0), ECG: Normal (0), Age: < or = 45 years ms3 (0), Risk Factors: 1 or 2 risk factors (1), [Hypertension] [Active Smoker] Troponin: < or = 1 x Normal Limit (0), Total Score = 1. Data reviewed: vital signs, nurses notes, lab test result(s), EKG, radiologic studies, plain films, and as a result, I will discharge patient. Counseling: I had a detailed discussion with the patient and/or guardian regarding the historical points, exam findings, and any diagnostic results supporting the discharge/admit diagnosis, lab results, radiology results, the need for outpatient follow up, to return to the emergency department if symptoms worsen or persist or if there are any questions or concerns that arise at home. Special discussion: Based on the patient's history, exam, and Dx evaluation, there is no indication for emergent intervention or inpatient Tx. It is understood by the patient/guardian that if the Sx's persist or worsen they need to return immediately for re-evaluation. ED course: Discussed elevated white blood count with patient. Patient denies fevers, chills, nausea, abdominal pain, or other signs of infection. Patient to follow-up with Dr. Horan in 2 to 3 days. Patient understands and agrees with plan. All questions were answered. Return precautions discussed include fevers, vomiting, abdominal pain, shortness of breath, worsening symptoms, or any other concerns. On reevaluation patient is alert and oriented x4, no apparent distress, nontoxic-appearing, ambulatory in emergency department, speaking full sentences.. 11:46 Counseling: I had a detailed discussion with the patient and/or guardian regarding ms3 smoking cessation. 12/19 10:16 Order name: Basic Metabolic Panel; Complete Time: 10:57 ms3 12/19 10:16 Order name: CBC with Diff; Complete Time: 10:57 ms3 12/19 10:16 Order name: Magnesium; Complete Time: 10:57 ms3 12/19 10:16 Order name: Troponin HS; Complete Time: 10:57 ms3 12/19 10:16 Order name: Chest Pa And Lat (2 Views) XRAY; Complete Time: 11:15 ms3 12/19 10:16 Order name: EKG; Complete Time: 10:17 ms3 12/19 10:16 Order name: Cardiac monitoring; Complete Time: 10:17 ms3 12/19 10:16 Order name: EKG - Nurse/Tech; Complete Time: 10:17 ms3 12/19 10:16 Order name: IV Saline Lock; Complete Time: 10:24 ms3 12/19 10:16 Order name: Labs collected and sent; Complete Time: 10:24 ms3 12/19 10:16 Order name: O2 Per Protocol; Complete Time: 10:17 ms3 12/19 10:16 Order name: O2 Sat Monitoring; Complete Time: : ms3 EC:17 Rate is 89 beats/min. Rhythm is regular. QRS [place] is Normal. [place] interval is normal. QRS ms3 interval is normal. Clinical impression: Normal ECG. Interpreted by me. Reviewed by me. Administered Medications: No medications were administered Disposition Summary: 12/19/22 11:21 Discharge Ordered Location: Home ms3 Condition: Stable ms3 Diagnosis - Chest pain, unspecified ms3 - Elevated blood-pressure reading, without diagnosis of hypertension ms3 - Elevated WBC ms3 Followup: ms3 - With: Ernie Horan MD - When: 2 - 3 days - Reason: Re-evaluation by your physician Discharge Instructions: - Discharge Summary Sheet ms3 - Nonspecific Chest Pain, Adult ms3 - Smoking Tobacco Information, Adult ms3 Forms: - Work release form ap3 - Medication Reconciliation Form ms3 - Thank You Letter ms3 - Antibiotic Education ms3 - Prescription Opioid Use ms3 - Patient Portal Instructions ms3 - Leadership Thank You Letter ms3 Signatures: Dispatcher [employer] Milly Guzman, RN RN Bob Fraga, DO ms3
[2022-12-19 12:10] VITALS: BP 153/106; TEMP 98.4; O2SAT 100
--- NOTE | 2022-12-22 19:13 | EKG ---
Test Date: 2022-12-19 Test Time: 10:09:56 Stock Checker: ALP MEASUREMENT RESULTS: Intervals: Rate: 89 MI: 138 QRSD: 88 QT: 376 QTc: 457 [place]: P: 32 MI: 138 QRS: 53 T: 39 INTERPRETIVE STATEMENTS: Normal sinus rhythm Possible Left atrial enlargement Borderline ECG Compared to ECG 12/03/2022 16:38:14 ST (T wave) deviation no longer present Electronically Signed On 12-22-22 19:08:05 CDT by Kenneth Ocasio
== END 2022-12-19 11:51 | disposition home or self-care (01) ==
LOC: ER 09:58
DX: R07.9 Chest pain, unspecified (principal); R03.0 Elevated blood-pressure reading, without diagnosis of hypertension; D72.829 Elevated white blood cell count, unspecified; F17.210 Nicotine dependence, cigarettes, uncomplicated
CPT/HCPCS: 36415; 71046; 80048; 83735; 84484; 85025; 93005; 99285

== ENCOUNTER → 2023-06-10 | Emergency (ER) | payer SELFPAY ==
--- OUTSIDE RECORDS SUMMARY | 2023-06-10 09:43 | XMS REPORT | Continuity of Care Document ---
Author Name Unknown Address [address] [place] [address] [employer] Address [address] [place] [address] Care Team Providers Care Voucher Clerk Name Role Phone Unavailable Unavailable Unavailable Results Test Description Test Time Test Comments Results Result Co mments Source
--- NOTE | 2023-06-10 12:13 | ER ---
Nurse's Notes [facility] Name: Pedro Wright Age: 28 yrs Sex: Male : 1995 Arrival Date: 06/10/2023 Time: 09:40 Bed IW2 Private MD: Diagnosis: Acute upper respiratory infection, unspecified Presentation: 06/09 09:53 Chief complaint: Patient states: 3 DAYS FLU-LIKE. Coronavirus screen: At this time, the bp client does not indicate any symptoms associated with coronavirus-19. Ebola Screen: No symptoms or risks identified at this time. Initial Sepsis Screen: Does the patient meet any 2 criteria? No. Patient's initial sepsis screen is negative. Does the patient have a suspected source of infection? No. Patient's initial sepsis screen is negative. Risk Assessment: Do you want to hurt yourself or someone else? Patient reports no desire to harm self or others. Onset of symptoms is unknown. 09:53 Method Of Arrival: Ambulatory bp 09:53 Acuity: PEDRO 4 bp Triage Assessment: 09:55 General: Appears in no apparent distress. ill, Behavior is calm, cooperative, bp appropriate for age. Pain: Denies pain. Historical: - Allergies: 09:55 No Known Drug Allergies; bp - PMHx: 09:55 ADD/ADHD; bp - Immunization history:: Adult Immunizations up to date. - Social history:: Smoking status: Patient denies any tobacco usage or history of. Screenin:56 [facility] ED Fall Risk Assessment (Adult) History of falling in the last 3 months, bp including since admission No falls in past 3 months (0 pts). Abuse screen: Denies threats or abuse. Denies injuries from another. Nutritional screening: No deficits noted. Tuberculosis screening: No symptoms or risk factors identified. Assessment: 13:39 Reassessment: DC HOME AMBULATORY. bp Vital Signs: 09:53 BP 169 / 107; Pulse 93; Resp 16; Temp 97.8; Pulse Ox 97% ; bp ED Course: 09:44 Patient arrived in ED. mg5 09:48 Bob Veloz DO is Attending Physician. ms3 09:55 Triage completed. bp 09:55 Arm band placed on. bp 09:56 Patient has correct armband on for positive identification. bp 11:19 Flu Sent. ls5 12:12 Joshua Vance DO is Referral Physician. ms3 13:39 No provider procedures requiring assistance completed. Patient did not have IV access bp during this emergency room visit. Administered Medications: No medications were administered Medication: 13:39 VIS not applicable for this client. bp Outcome: 12:12 Discharge ordered by MD. ms3 13:39 Discharged to home ambulatory, bp 13:39 Condition: stable 13:39 Discharge instructions given to patient, Instructed on discharge instructions, follow up and referral plans. medication usage, Demonstrated understanding of instructions, follow-up care, medications, Prescriptions given X 1, 13:40 Patient left the ED. bp Signatures: Lul Fuentes, RN RN bp Bob Veloz DO DO ms3 Manuel Denis ls5 Shira Ross mg5 Corrections: (The following items were deleted from the chart) 09:55 09:55 Allergies: NKA; bp bp 09:55 09:55 PSHx: ear; bp bp 11:35 11:19 SARS-COV-2 Antigen Rapid+I.LAB.MYRON drawn and sent. ls5 EDMS
--- NOTE | 2023-06-10 12:13 | EDPHYS ---
Physician Documentation [facility] Name: Pedro Wright Age: 28 yrs Sex: Male : 1995 Arrival Date: 06/10/2023 Time: 09:40 Bed IW2 Private MD: ED Physician Bob Veloz HPI: 06/09 12:13 This 28 yrs old Male presents to ER via Ambulatory with complaints of Flu Symptoms. ms3 12:13 28-year-old male with past medical history of ADD/ADHD presents to the emergency ms3 department for chills, body ache, congestion, cough that is been ongoing for 2 to 3 days. Patient states he lost his taste and smell yesterday. Patient denies any alleviating or inciting factors. Historical: - Allergies: :55 No Known Drug Allergies; bp - PMHx: :55 ADD/ADHD; bp - Immunization history:: Adult Immunizations up to date. - Social history:: Smoking status: Patient denies any tobacco usage or history of. ROS: 12:13 Neck: Negative for injury, pain, and swelling, Cardiovascular: Negative for chest pain, ms3 and palpitations. 12:13 Abdomen/GI: Negative for abdominal pain, nausea, vomiting, diarrhea, and constipation, MS/Extremity: Negative for injury and deformity, Skin: Negative for injury, rash, and discoloration, 12:13 Constitutional: Positive for body aches, chills, fever, 12:13 ENT: Positive for nasal discharge, sinus congestion, 12:13 Respiratory: Positive for cough, Exam: 12:13 Constitutional: This is a well developed, well nourished patient who is awake, alert, ms3 and in no acute distress. Head/Face: Normocephalic, atraumatic. Neck: Trachea midline, no cervical lymphadenopathy. Supple, full range of motion without nuchal rigidity, or vertebral point tenderness. No Meningismus. Chest/axilla: Normal chest wall appearance and motion. Nontender with no deformity. Cardiovascular: Regular rate and rhythm with a normal S1 and S2. No gallops, murmurs, or rubs. Normal PMI, no JVD. No pulse deficits. Respiratory: Lungs have equal breath sounds bilaterally, clear to auscultation and percussion. No rales, rhonchi or wheezes noted. No increased work of breathing, no retractions or nasal flaring. Abdomen/GI: Soft, non-tender, with normal bowel sounds. No distension or tympany. No guarding or rebound. No evidence of tenderness throughout. Skin: Warm, dry with normal turgor. Normal color with no rashes, no lesions, and no evidence of cellulitis. Vital Signs: 09:53 BP 169 / 107; Pulse 93; Resp 16; Temp 97.8; Pulse Ox 97% ; bp MDM: 10:21 Patient medically screened. ms3 12:13 Differential Diagnosis: Influenza Upper Respiratory Infection Viral Syndrome Other ms3 COVID. Data reviewed: vital signs, nurses notes, lab test result(s), and as a result, I will discharge patient. Counseling: I had a detailed discussion with the patient and/or guardian regarding the historical points, exam findings, and any diagnostic results supporting the discharge/admit diagnosis, lab results, the need for outpatient follow up, to return to the emergency department if symptoms worsen or persist or if there are any questions or concerns that arise at home. Special discussion: I discussed with the patient/guardian in detail that at this point there is no indication for admission to the hospital. It is understood, however, that if the symptoms persist or worsen the patient needs to return immediately for re-evaluation. ED course: Discussed negative flu and COVID with patient. Patient to follow-up with primary care physician in 2 to 3 days. Patient understands and agrees with plan. All questions were answered. Return precautions discussed include worsening symptoms, or any other concerns. 06/09 10:00 Order name: Flu; Complete Time: 12:08 ms3 06/09 11:35 Order name: SARS-COV-2 RT PCR; Complete Time: 12:08 EDMS Administered Medications: No medications were administered Disposition Summary: 06/10/23 12:12 Discharge Ordered Notes: Location: Home ms3 Condition: Stable ms3 Diagnosis - Acute upper respiratory infection, unspecified ms3 Followup: ms3 - With: Joshua Vance DO - When: 2 - 3 days - Reason: Recheck today's complaints Discharge Instructions: - Discharge Summary Sheet ms3 - Upper Respiratory Infection, Adult ms3 - Viral Respiratory Infection, [id number] ms3 Forms: - Work release form bd - Medication Reconciliation Form ms3 - Thank You Letter ms3 - Antibiotic Education ms3 - Prescription Opioid Use ms3 - Patient Portal Instructions ms3 - Leadership Thank You Letter ms3 Prescriptions: - benzonatate 200 mg Oral capsule - take 1 capsule ORAL route 3 times per day as needed; 15 capsule; Refills: 0, ms3 Product Selection Permitted Signatures: Dispatcher [employer] EDLul Perez, RN RN Bob Bryant DO DO ms3 Corrections: (The following items were deleted from the chart) 09:55 09:55 Allergies: NKA; bp bp 09:55 09:55 PSHx: ear; bp bp 11:35 10:00 SARS-COV-2 Antigen Rapid+I.LAB.BRENDONZ ordered. EDMS EDMS
[2023-06-10 14:14] VITALS: BP 169/107; TEMP 97.8; O2SAT 97
== END ==
LOC: ER 09:40
DX: J06.9 Acute upper respiratory infection, unspecified (principal); Z11.52 Encounter for screening for COVID-19
CPT/HCPCS: 36415; 87635; 87804; 99283

== ENCOUNTER → 2023-06-17 | Emergency (ER) | payer SELFPAY ==
--- OUTSIDE RECORDS SUMMARY | 2023-06-17 07:25 | XMS REPORT | Continuity of Care Document ---
Author Name Unknown Address [address] [place] [address] thconnect Address [address] [place] [address] Care Team Providers Care Speech Therapist Name Role Phone Unavailable Unavailable Unavailable Results Test Description Test Time Test Comments Results Result Co mments Source
--- NOTE | 2023-06-17 07:44 | ER ---
Nurse's Notes [facility] Name: Pedro Wright Age: 28 yrs Sex: Male : 1995 Arrival Date: 06/17/2023 Time: 07:22 Bed IW1 Private MD: Diagnosis: Acute serous otitis media, bilateral Presentation: 06/16 07:31 Chief complaint: Patient states: productive cough since a week ago, both my ears are iw draining at night, fever this morning , nasal congestion. Coronavirus screen: Client presents with at least one sign or symptom that may indicate coronavirus-19. Ebola Screen: Patient negative for fever greater than or equal to 101.5 degrees Fahrenheit, and additional compatible Ebola Virus Disease symptoms Patient denies exposure to infectious person. Patient denies travel to an Ebola-affected area in the 21 days before illness onset. No symptoms or risks identified at this time. Initial Sepsis Screen: Does the patient meet any 2 criteria? No. Patient's initial sepsis screen is negative. Does the patient have a suspected source of infection? No. Patient's initial sepsis screen is negative. Risk Assessment: Do you want to hurt yourself or someone else? Patient reports no desire to harm self or others. Onset of symptoms was June 10, 2023. 07:31 Method Of Arrival: Ambulatory iw 07:33 Acuity: PEDRO 3 iw Historical: - Allergies: 07:34 No Known Allergies; iw - Home Meds: 07:34 None [Active]; iw - PMHx: 07:33 ADD/ADHD; iw - PSHx: 07:34 ear; iw - Immunization history:: Adult Immunizations not up to date. - Social history:: Smoking status: Patient reports the use of cigarette tobacco products, smokes one-half pack cigarettes per day. Screenin:[address] [facility] ED Fall Risk Assessment (Adult) History of falling in the last 3 months, iw including since admission No falls in past 3 months (0 pts) Confusion or Disorientation No (0 pts) Intoxicated or Sedated No (0 pts) Impaired Gait No (0 pts) Mobility Assist Device Used No (0 pt) Altered Elimination No (0 pt) Score/Fall Risk Level 0 - 2 = Low Risk. Abuse screen: Denies threats or abuse. Denies injuries from another. Nutritional screening: No deficits noted. Tuberculosis screening: No symptoms or risk factors identified. Assessment: 07:52 General: Appears in no apparent distress. Behavior is calm, cooperative. General: iw Reports fever for feeling ill for fatigue for. Pain: Complains of pain in right ear and left ear. Neuro: Level of Consciousness is awake, alert, obeys commands, Oriented to person, place, time, situation. Cardiovascular: Patient's skin is warm and dry. Respiratory: Respiratory effort is even, unlabored, Respiratory pattern is regular, symmetrical. GI: No signs and/or symptoms were reported involving the gastrointestinal system. Derm: Skin is intact, is healthy with good turgor. Musculoskeletal: Range of motion: intact in all extremities. Vital Signs: 07:33 BP 172 / 99; Pulse 100; Resp 18; Temp 97.3; Pulse Ox 95% on R/A; Weight 86.18 kg; iw Height 5 ft. 11 in. ; 07:33 Body Mass Index 26.50 (86.18 kg, 180.34 cm) iw ED Course: 07:24 Patient arrived in ED. mr 07:34 Triage completed. iw 07:34 Homer Carmichael MD is Attending Physician. ec2 07:35 Arm band placed on. iw 07:48 Genoveva Angel RN is Primary Nurse. iw 07:53 Patient has correct armband on for positive identification. Provided Education on: iw prescriptions . 07:53 No provider procedures requiring assistance completed. Patient did not have IV access iw during this emergency room visit. Administered Medications: No medications were administered Medication: 07:53 VIS not applicable for this client. iw Outcome: 07:44 Discharge ordered by . ec2 07:53 Discharged to home ambulatory, iw 07:53 Condition: good 07:53 Discharge instructions given to patient, Instructed on discharge instructions, follow up and referral plans. Demonstrated understanding of instructions, follow-up care, medications, Prescriptions given X 1, 07:54 Patient left the ED. iw Signatures: Guerline Watson, Reg Reg Genoveva Angel, RN RN iw Homer Carmichael MD MD ec2 Corrections: (The following items were deleted from the chart) 07:34 07:33 Pulse 106bpm; Resp 18bpm; Temp 97.3F; iw iw 07:52 07:33 Pulse 100bpm; Resp 18bpm; Pulse Ox 95% RA; Temp 97.3F; 86.18 kg; Height 5 ft. 11 iw in.; BMI: 26.5; iw
--- NOTE | 2023-06-17 07:44 | EDPHYS ---
Physician Documentation [facility] Name: Pedro Wright Age: 28 yrs Sex: Male : 1995 Arrival Date: 06/17/2023 Time: 07:22 Bed IW1 Private MD: ED Physician Homer Carmichael HPI: 06/16 07:42 This 28 yrs old Male presents to ER via Ambulatory with complaints of Fever. ec2 07:42 Patient arrives today for evaluation of URI signs and symptoms. States that he did have ec2 symptoms approximately 1 week. Patient reports cough and congestion as well as productive sputum, states that he started to have bilateral worsening ear pain, worse on the right with drainage noted from the right as well. Reports objective fevers and chills.. Historical: - Allergies: 07:34 No Known Allergies; iw - Home Meds: 07:34 None [Active]; iw - PMHx: 07:33 ADD/ADHD; iw - PSHx: 07:34 ear; iw - Immunization history:: Adult Immunizations not up to date. - Social history:: Smoking status: Patient reports the use of cigarette tobacco products, smokes one-half pack cigarettes per day. ROS: 07:42 Constitutional: as per hpi ec2 Exam: 07:42 Constitutional: GEN: NAD Head: atraumatic Eyes: EOMI Ears: External ears are normal. ec2 Right ear with small perforation noted, drainage noted, cloudy appearing fluid noted. Left ear with cloudy fluid noted behind tympanic membrane. No perforation noted in the left ear. Mouth: No posterior pharyngeal erythema, no exudates appreciated. CV: regular rate LUNGS: no respiratory distress ABD: non-distended SKIN: no evidence of rashes MSK: no evidence of trauma NEURO: moves all extremities equally Vital Signs: 07:33 BP 172 / 99; Pulse 100; Resp 18; Temp 97.3; Pulse Ox 95% on R/A; Weight 86.18 kg; iw Height 5 ft. 11 in. ; 07:33 Body Mass Index 26.50 (86.18 kg, 180.34 cm) iw MDM: 07:34 Patient medically screened. ec2 07:42 Data reviewed: vital signs. ED course: Patient arrives today for URI signs and symptoms ec2 along with ear pain. Semination remarkable for otitis media of both ears with a small TM perforation of the right ear. Will start the patient on antibiotics and have follow-up primary care doctor. Will discharge home peer return precaution given. Administered Medications: No medications were administered Disposition Summary: 06/17/23 07:44 Discharge Ordered Notes: Location: Home ec2 Condition: Stable ec2 Diagnosis - Acute serous otitis media, bilateral ec2 Followup: ec2 - With: Private Physician - When: - Reason: Re-evaluation by your physician Discharge Instructions: - Discharge Summary Sheet ec2 - Otitis Media, Adult, [id number] ec2 Forms: - Work release form ec2 - Medication Reconciliation Form ec2 - Thank You Letter ec2 - Antibiotic Education ec2 - Prescription Opioid Use ec2 - Patient Portal Instructions ec2 - Leadership Thank You Letter ec2 Prescriptions: - Augmentin 875-125 mg Oral tablet - take 1 tablet ORAL route every 12 hours for 7 days; 14 tablet; Refills: 0, ec2 Product Selection Permitted Signatures: Genoveva Angel RN RN iw Homer Carmichael MD MD ec2
[2023-06-17 08:02] VITALS: BP 172/99; TEMP 97.3; O2SAT 95
== END ==
LOC: ER 07:22
DX: H65.03 Acute serous otitis media, bilateral (principal); F17.210 Nicotine dependence, cigarettes, uncomplicated

== ENCOUNTER 2023-07-26 16:55 | Emergency (ER) | payer SELFPAY ==
--- OUTSIDE RECORDS SUMMARY | 2023-07-26 16:58 | XMS REPORT | Continuity of Care Document ---
Author Name Unknown Address [address] [place] [address] thconnect Address [address] [place] [address] Care Team Providers Care Flange Turner Name Role Phone Unavailable Unavailable Unavailable Results Test Description Test Time Test Comments Results Result Co mments Source
--- NOTE | 2023-07-26 17:05 | ER ---
Nurse's Notes [facility] Name: Pedro Wright Age: 28 yrs Sex: Male : 1995 Arrival Date: 07/26/2023 Time: 16:55 Bed IW1 Private MD: Diagnosis: Otitis media, unspecified, bilateral;Unspecified otitis externa, right ear Presentation: 07/25 17:02 Chief complaint: Patient states: R ear pain for 1 week + drainage. No fever. ll1 Coronavirus screen: Client denies travel out of the [place] in the last 14 days. At this time, the client does not indicate any symptoms associated with coronavirus-19. Ebola Screen: Patient denies travel to an Ebola-affected area in the 21 days before illness onset. Initial Sepsis Screen: Does the patient meet any 2 criteria? No. Patient's initial sepsis screen is negative. Does the patient have a suspected source of infection? No. Patient's initial sepsis screen is negative. Risk Assessment: Do you want to hurt yourself or someone else? Patient reports no desire to harm self or others. Onset of symptoms was July 19, 2023. 17:02 Method Of Arrival: Ambulatory ll1 17:02 Acuity: PEDRO 4 ll1 Triage Assessment: 17:03 General: Appears uncomfortable, Behavior is calm, cooperative, appropriate for age. ll1 Pain: Complains of pain in right ear. EENT: Reports pain in right ear. Historical: - Allergies: 17:02 No Known Drug Allergies; ll1 - PMHx: 17:02 ADD/ADHD; ll1 - PSHx: 17:02 ear; ll1 - Immunization history:: Adult Immunizations up to date. - Infectious Disease History:: Denies. - Social history:: Smoking status: Patient reports the use of cigarette tobacco products, smokes one-half pack cigarettes per day. Screenin:14 [facility] ED Fall Risk Assessment (Adult) History of falling in the last 3 months, ll1 including since admission No falls in past 3 months (0 pts) Confusion or Disorientation No (0 pts) Intoxicated or Sedated No (0 pts) Impaired Gait No (0 pts) Mobility Assist Device Used No (0 pt) Altered Elimination No (0 pt) Score/Fall Risk Level 0 - 2 = Low Risk Maintained a safe environment, Hourly rounding (assess needs \T\ fall precautionary measures) done. Abuse screen: Denies threats or abuse. Nutritional screening: No deficits noted. Tuberculosis screening: No symptoms or risk factors identified. Vital Signs: 17:02 BP 145 / 96; Pulse 100; Resp 17; Temp 97.8; Pulse Ox 98% ; Weight 81.65 kg; Height 5 ll1 ft. 11 in. ; Pain 5/10; 17:02 Body Mass Index 25.10 (81.65 kg, 180.34 cm) ll1 17:02 Pain Scale: Adult ll1 ED Course: 16:57 Patient arrived in ED. mr 17:00 [facility] kb 17:00 Harpreet Henao MD is Attending Physician. kb 17:02 Arm band placed on. ll1 17:06 Triage completed. ll1 17:14 No provider procedures requiring assistance completed. Patient did not have IV access ll1 during this emergency room visit. 17:15 Patient has correct armband on for positive identification. Provided Education on: ll1 finish all prescribed antibiotics. Administered Medications: No medications were administered Medication: 17:15 VIS not applicable for this client. ll1 Outcome: 17:05 Discharge ordered by . kb 17:14 Discharged to home ambulatory, ll1 17:14 Condition: stable 17:14 Discharge instructions given to patient, Instructed on discharge instructions, follow up and referral plans. medication usage, Demonstrated understanding of instructions, follow-up care, medications, Prescriptions given X 2, 17:15 Patient left the ED. ll1 Signatures: Salma Mcfarland FNP-C FNP-Guerline Lu, Reg Reg Kanchan Thomas, RN RN ll1
--- NOTE | 2023-07-26 17:05 | EDPHYS ---
Physician Documentation [facility] Name: Pedro Wright Age: 28 yrs Sex: Male : 1995 Arrival Date: 07/26/2023 Time: 16:55 Bed IW1 Private MD: ED Physician Harpreet Henao HPI: 07/25 18:03 This 28 yrs old Male presents to ER via Ambulatory with complaints of Ear Pain. kb 18:03 Pt is a 28 year old male who presents for right ear pain and drainage. States he was kb diagnosed with bilateral ear infection a couple of weeks ago, took antibiotics that were prescribed. States the left ear got better and the right started to, but once he was out of antibiotics the pain came back. . Historical: - Allergies: 17:02 No Known Drug Allergies; ll1 - PMHx: 17:02 ADD/ADHD; ll1 - PSHx: 17:02 ear; ll1 - Immunization history:: Adult Immunizations up to date. - Infectious Disease History:: Denies. - Social history:: Smoking status: Patient reports the use of cigarette tobacco products, smokes one-half pack cigarettes per day. ROS: 18:00 Constitutional: As per HPI kb Exam: 18:00 Constitutional: This is a well developed, well nourished patient who is awake, alert, kb and in no acute distress. Head/Face: Normocephalic, atraumatic. Cardiovascular: Regular rate Respiratory: Respirations even and unlabored. No increased work of breathing. Talking in full sentences Abdomen/GI: Soft, non-tender. No distention Skin: Warm, dry with normal turgor. Normal color. MS/ Extremity: Pulses equal, no cyanosis. Neurovascular intact. Full, normal range of motion. Neuro: Awake and alert, GCS 15, oriented to person, place, time, and situation. Moves all extremities. Normal gait. 18:00 ENT: External ear(s): are unremarkable, Ear canal(s): swelling, that is moderate, of the right canal, TM's: bulging, bilaterally, erythema, that is mild, that is moderate, bilaterally, fluid levels, bilaterally, Vital Signs: 17:02 BP 145 / 96; Pulse 100; Resp 17; Temp 97.8; Pulse Ox 98% ; Weight 81.65 kg; Height 5 ll1 ft. 11 in. ; Pain 5/10; 17:02 Body Mass Index 25.10 (81.65 kg, 180.34 cm) ll1 17:02 Pain Scale: Adult ll1 MDM: 17:00 Patient medically screened. kb 18:06 Differential diagnosis: otitis media, otitis externa, ruptured TM, foreign body, acute kb otalgia. Data reviewed: vital signs, nurses notes. Counseling: I had a detailed discussion with the patient and/or guardian regarding the historical points, exam findings, and any diagnostic results supporting the discharge/admit diagnosis, the need for outpatient follow up, an ENT specialist, to return to the emergency department if symptoms worsen or persist or if there are any questions or concerns that arise at home. 20:43 ED course: At bedside to reassess patient. Patient remains awake, alert and at baseline kb mentation. Patient appears stable. Patient exhibits no visible signs of distress. Patient respirations even and unlabored. I discussed patient's diagnosis, differential diagnosis, expected course of illness, at home recommendations and strict return precautions. I advised patient to follow-up with PCP in 2 to 3 days. I explained all diagnostic results with the patient and answered all questions that patient had regarding the most likely diagnosis. I emphasized the need for close outpatient follow-up and care from primary care provider/specialist and went through careful and detailed return precautions with patient. Patient expressed full understanding of such and agrees with plan for discharge today. Feel patient is stable and appropriate for discharge and ongoing management of condition at home at this time.. Administered Medications: No medications were administered Disposition: 19:34 Co-signature as Attending Physician, Harpreet Henao MD I reviewed the patient's care rt provided by the Advanced Practice Provider and agree with the diagnosis and treatment plan. Disposition Summary: 07/26/23 17:05 Discharge Ordered Notes: Location: Home kb Condition: Stable kb Diagnosis - Otitis media, unspecified, bilateral kb - Unspecified otitis externa, right ear kb Followup: kb - With: Emergency Department - When: As needed - Reason: Worsening of condition Followup: kb - With: Private Physician - When: 2 - 3 days - Reason: Recheck today's complaints, Continuance of care, Re-evaluation by your physician Discharge Instructions: - Discharge Summary Sheet kb - Otitis Externa, [id number] kb - Otitis Media, Adult, [id number] kb Forms: - Medication Reconciliation Form kb - Thank You Letter kb - Antibiotic Education kb - Prescription Opioid Use kb - Patient Portal Instructions kb - Leadership Thank You Letter kb Prescriptions: - cefdinir 300 mg Oral capsule - take 1 capsule ORAL route every 12 hours for 10 days; 20 capsule; Refills: 0, kb Product Selection Permitted - Ciprodex 0.3-0.1 % Otic drops, suspension - instill 4 drops OTIC route every 12 hours for 7 days , for ears ONLY; 1 unit; kb Refills: 0, Product Selection Permitted Signatures: Salma Mcfarland FNP-C FNP-Ckb Lewis, Lynsay, RN RN ll1 Harpreet Henao MD MD rt
[2023-07-26 17:52] VITALS: BP 145/96; TEMP 97.8; O2SAT 98
== END 2023-07-26 17:15 | disposition home or self-care (01) ==
LOC: ER 16:55
DX: H66.93 Otitis media, unspecified, bilateral (principal); H60.91 Unspecified otitis externa, right ear; F17.210 Nicotine dependence, cigarettes, uncomplicated
CPT/HCPCS: 99283

== ENCOUNTER 2023-08-17 15:25 | Emergency (ER) | payer SELFPAY ==
--- OUTSIDE RECORDS SUMMARY | 2023-08-17 15:29 | XMS REPORT | Continuity of Care Document ---
Author Name Unknown Address [address] [place] [address] thconnect Address [address] [place] [address] Care Team Providers Care Job Placement Specialist Name Role Phone Unavailable Unavailable Unavailable Results Test Description Test Time Test Comments Results Result Co mments Source
--- NOTE | 2023-08-17 15:41 | ER ---
Nurse's Notes [facility] Name: Pedro Wright Age: 28 yrs Sex: Male : 1995 Arrival Date: 08/17/2023 Time: 15:25 Bed 10 Private MD: Diagnosis: Dental abscess;Dental caries, unspecified;Essential (primary) hypertension;Local infection of the skin and subcutaneous tissue, unspecified Presentation: 08/16 15:32 Chief complaint: Patient states: RUE SKIN LESIONS, R MAXILLARY PAIN. Coronavirus bp screen: At this time, the client does not indicate any symptoms associated with coronavirus-19. Ebola Screen: No symptoms or risks identified at this time. Initial Sepsis Screen: Does the patient meet any 2 criteria? HR > 90 bpm. No. Patient's initial sepsis screen is negative. Does the patient have a suspected source of infection? No. Patient's initial sepsis screen is negative. Risk Assessment: Do you want to hurt yourself or someone else? Patient reports no desire to harm self or others. Onset of symptoms is unknown. 15:32 Method Of Arrival: Ambulatory bp 15:32 Acuity: PEDRO 4 bp Triage Assessment: 15:34 General: Appears in no apparent distress. uncomfortable, Behavior is cooperative, bp appropriate for age, anxious. Pain: Complains of pain in mouth. EENT: Reports pain in mouth. Derm: Reports pain that is 5 out of 10 on a pain scale. Historical: - Allergies: 15:34 No Known Drug Allergies; bp - PMHx: 15:34 ADD/ADHD; bp - Immunization history:: Adult Immunizations up to date. - Infectious Disease History:: Denies. - Social history:: Smoking status: unknown. Screenin:38 [facility] ED Fall Risk Assessment (Adult) History of falling in the last 3 months, ph including since admission No falls in past 3 months (0 pts) Confusion or Disorientation No (0 pts) Intoxicated or Sedated No (0 pts) Impaired Gait No (0 pts) Mobility Assist Device Used No (0 pt) Altered Elimination No (0 pt) Score/Fall Risk Level 0 - 2 = Low Risk Oriented to surroundings, Maintained a safe environment, Hourly rounding (assess needs \T\ fall precautionary measures) done. Abuse screen: Denies threats or abuse. Denies injuries from another. Nutritional screening: No deficits noted. Tuberculosis screening: No symptoms or risk factors identified. Assessment: 15:55 General: Appears in no apparent distress. Behavior is calm, cooperative. Pain: ph Complains of pain in upper right first molar (#3) and upper right second molar (#2). Neuro: Level of Consciousness is awake, alert, obeys commands, Oriented to person, place, time, situation. Cardiovascular: Capillary refill < 3 seconds in bilateral fingers Patient's skin is warm and dry. Respiratory: Airway is patent Respiratory effort is even, unlabored. EENT: Poor dentition noted. Reports pain in mouth. Derm: Skin is pink, warm \T\ dry. Rash noted that is red, raised, on right arm. Vital Signs: 15:32 BP 188 / 130; Pulse 110; Resp 16; Temp 97.9; Pulse Ox 98% ; bp ED Course: 15:28 Patient arrived in ED. mr 15:30 Chaparrita Sánchez, [facility]AD [facility] 15:30 Christopher Quiroz MD is Attending Physician. [facility] 15:34 Triage completed. bp 15:34 Arm band placed on. bp 15:38 Missy Caldera, RN is Primary Nurse. ph 15:38 Patient placed in an exam room, on a stretcher. ll1 15:39 Patient has correct armband on for positive identification. Bed in low position. Call ph light in reach. Side rails up X 1. Door closed. Noise minimized. 16:16 No provider procedures requiring assistance completed. Patient did not have IV access ph during this emergency room visit. Administered Medications: 16:09 Drug: Ketorolac IM 60 mg IM once Route: IM; Site: right deltoid; ph 16:18 Follow up: Response: No adverse reaction; Medication administered at discharge. ph 16:09 Drug: Lisinopril PO 10 mg PO once Route: PO; ph 16:17 Follow up: Response: No adverse reaction; Medication administered at discharge. ph Medication: 15:38 VIS not applicable for this client. ph Outcome: 15:[address] . [facility] 16:09 Patient left the ED. ph 16:09 Discharged to home ambulatory, ph 16:09 Condition: good 16:09 Discharge instructions given to patient, Instructed on discharge instructions, follow up and referral plans. medication usage, Demonstrated understanding of instructions, follow-up care, medications, Prescriptions given X 4, Signatures: Guerline Watson, Reg Reg mr Missy Caldera, RN RN ph Lul Fuentes RN RN bp Kanchan Thomas RN RN 1 Chaparrita Sánchez, MUSHROOM GROWTH MEDIA MIXER MUSHROOM GROWTH MEDIA MIXER jh7
--- NOTE | 2023-08-17 15:41 | EDPHYS ---
Physician Documentation [facility] Name: Pedro Wright Age: 28 yrs Sex: Male : 1995 Arrival Date: 08/17/2023 Time: 15:25 Bed 10 Private MD: ED Physician Christopher Quiroz HPI: 08/16 15:32 This 28 yrs old Male presents to ER via Ambulatory with complaints of Skin Problem, [facility] Toothache. 15:32 28-year-old male with a past medical history of hypertension presents to the ER [facility] complaining of skin infection on the right arm and a tooth ache. He reports that he just got dental insurance and has been unable to follow-up with a dentist. Complains of pain to the right upper premolar. Also reports pimples on his right arm that keep reappearing. He reports that he keeps popping them, but that they keep returning. He states that he is on lisinopril 10 mg once daily, but has been out of his medication. Denies fever, chest pain, shortness of breath, dizziness, headache, syncope, or any other symptoms at this time.. Historical: - Allergies: 15:34 No Known Drug Allergies; bp - PMHx: 15:34 ADD/ADHD; bp - Immunization history:: Adult Immunizations up to date. - Infectious Disease History:: Denies. - Social history:: Smoking status: unknown. ROS: 15:32 Constitutional: Per HPI [facility] Exam: 15:32 Constitutional: This is a well developed, well nourished patient who is awake, alert, jh7 and in no acute distress. Head/Face: Normocephalic, atraumatic. Eyes: Pupils equal round and reactive to light, extra-ocular motions intact. Lids and lashes normal. Conjunctiva and sclera are non-icteric and not injected. Cornea within normal limits. Periorbital areas with no swelling, redness, or edema. Neck: Trachea midline, no thyromegaly or masses palpated, and no cervical lymphadenopathy. Supple, full range of motion without nuchal rigidity, or vertebral point tenderness. No Meningismus. Cardiovascular: Regular rate and rhythm with a normal S1 and S2. No gallops, murmurs, or rubs. Normal PMI, no JVD. No pulse deficits. Respiratory: Lungs have equal breath sounds bilaterally, clear to auscultation and percussion. No rales, rhonchi or wheezes noted. No increased work of breathing, no retractions or nasal flaring. Abdomen/GI: Soft, non-tender, with normal bowel sounds. No distension or tympany. No guarding or rebound. No evidence of tenderness throughout. MS/ Extremity: Pulses equal, no cyanosis. Neurovascular intact. Full, normal range of motion. Neuro: Awake and alert, GCS 15, oriented to person, place, time, and situation. Motor strength 5/5 in all extremities. Sensory grossly intact. Normal gait. 15:32 ENT: Dental exam: dental caries, that is severe, diffusely, gum swelling, specifically in the upper right second molar (#2) and upper right first molar (#3), 15:32 Skin: Erythematous papules with a few scattered pustules noted on the right arm., Vital Signs: 15:32 BP 188 / 130; Pulse 110; Resp 16; Temp 97.9; Pulse Ox 98% ; bp MDM: 15:30 Patient medically screened. [facility] 15:45 Differential diagnosis: Dental abscess, dental caries, hypertensive emergency, staph jh7 infection. Data reviewed: vital signs, nurses notes. I considered the following discharge prescriptions or medication management in the emergency department Medications were administered in the Emergency Department. See MAR. Care significantly affected by the following chronic conditions: Hypertension. Care significantly affected by the following Social Determinants of Health: Poor access to healthcare and/or lack of insurance. Counseling: I had a detailed discussion with the patient and/or guardian regarding the historical points, exam findings, and any diagnostic results supporting the discharge/admit diagnosis, the need for outpatient follow up, a dentist, to return to the emergency department if symptoms worsen or persist or if there are any questions or concerns that arise at home. Special discussion: Agreed to refill the patient's lisinopril, but advised him to follow-up with his PCP for continuity of care.. Administered Medications: 16:09 Drug: Ketorolac IM 60 mg IM once Route: IM; Site: right deltoid; ph 16:18 Follow up: Response: No adverse reaction; Medication administered at discharge. ph 16:09 Drug: Lisinopril PO 10 mg PO once Route: PO; ph 16:17 Follow up: Response: No adverse reaction; Medication administered at discharge. ph Disposition: 16:10 Co-signature as Attending Physician, Christopher Quiroz MD I reviewed the patient's care rn provided by the Advanced Practice Provider and agree with the diagnosis and treatment plan. Disposition Summary: 08/17/23 15:40 Discharge Ordered Notes: Location: Home jh7 Problem: an ongoing problem jh7 Symptoms: have worsened jh7 Condition: Stable jh7 Diagnosis - Dental abscess jh7 - Dental caries, unspecified jh7 - Essential (primary) hypertension jh7 - Local infection of the skin and subcutaneous tissue, unspecified jh7 Followup: [facility] - With: Private Physician - When: 2 - 3 days - Reason: Recheck today's complaints Discharge Instructions: - Discharge Summary Sheet jh7 - Dental Abscess jh7 - Dental Caries, Adult jh7 - Hypertension, Adult jh7 Forms: - Work release form ll1 - Medication Reconciliation Form 7 - Antibiotic Education [facility] - Patient Portal Instructions [facility] - Leadership Thank You Letter [facility] Prescriptions: - mupirocin 2 % Topical ointment - apply 1 application TOPICAL route 3 times per day for 7 days; 22 gram; Refills: jh 0, Product Selection Permitted - Clindamycin HCl 300 mg Oral capsule - take 1 capsule ORAL route 3 times per day for 10 days; 30 capsule; Refills: 0, 7 Product Selection Permitted - Naprosyn 500 mg Oral Tablet - take 1 tablet ORAL route 2 times per day take with food; 30 tablet; Refills: 0, jh7 Product Selection Permitted - Lisinopril 10 mg Oral tablet - take 1 tablet ORAL route once daily; 30 tablet; Refills: 0, Product Selection 7 Permitted Signatures: Christopher Quiroz MD MD rn Hall, Patricia RN Lul Riley ph RN RN Chaparrita Elder, MASTER OCEAN [facility]
[2023-08-17] MEDS ORDERED: KETOROLAC 30 MG/ML INJ ONE (15:52)
[2023-08-17] MEDS ORDERED: lisinopriL 10 MG TAB ONE (15:52)
[2023-08-17 16:20] VITALS: BP 188/130; TEMP 97.9; O2SAT 98
== END 2023-08-17 16:09 | disposition home or self-care (01) ==
LOC: ER 15:25
DX: K04.7 Periapical abscess without sinus (principal); L08.9 Local infection of the skin and subcutaneous tissue, unspecified
CPT/HCPCS: 96372; 99284

== ENCOUNTER 2023-10-09 09:13 | Emergency (ER) | payer SELFPAY ==
--- OUTSIDE RECORDS SUMMARY | 2023-10-09 09:15 | XMS REPORT | Continuity of Care Document ---
Author Name Unknown Address [address] [place] [address] thconnect Address [address] [place] [address] Care Team Providers Care Inseam Leveler Name Role Phone Unavailable Unavailable Unavailable Results Test Description Test Time Test Comments Results Result Co mments Source
[2023-10-09] MEDS ORDERED: ONDANSETRON 4 MG (ODT) TAB ONE (09:39)
[2023-10-09 10:32] LABS: SARS-CoV-2 Antigen CONTROL BLUE LINE VIS/BG OK; SARS-CoV-2 Antigen Rapid Res Negative (Negative)
--- NOTE | 2023-10-09 10:58 | EDPHYS ---
Physician Documentation [facility] Name: Pedro Wright Age: 28 yrs Sex: Male : 1995 Arrival Date: 10/09/2023 Time: 09:13 Bed 10 Private MD: ED Physician Christopher Quiroz HPI: 10/08 09:43 This 28 yrs old Male presents to ER via Ambulatory with complaints of sore throat, rn congestion, swollen lymph nodes. 09:44 The patient presents with sore throat. The patient describes throat pain as raw. Onset: rn The symptoms/episode began/occurred 2 day(s) ago. Severity of symptoms: At their worst the symptoms were mild, in the emergency department the symptoms are unchanged. Modifying factors: The symptoms are alleviated by nothing, the symptoms are aggravated by swallowing. Associated signs and symptoms: Pertinent positives: fever, flu-like symptoms, rhinorrhea, Pertinent negatives shortness of breath. The patient has not recently seen a physician. Historical: - Allergies: 09:20 No Known Drug Allergies; hb - Home Meds: 09:23 Lisinopril Oral [Active]; ll1 - PMHx: 09:20 ADD/ADHD; hb 09:23 Hypertensive disorder; ll1 - PSHx: 09:20 ear; hb - Immunization history:: Adult Immunizations up to date. - Infectious Disease History:: Denies. - Social history:: Smoking status: Patient reports the use of cigarette tobacco products, smokes one-half pack cigarettes per day, Reported history of juuling and/or vaping. - Family history:: not pertinent. - Hospitalizations: : No recent hospitalization is reported. ROS: 09:44 Constitutional: Positive for fever ENT: Positive for sore throat and nasal congestion rn Neck: Negative for injury, pain, and swelling, Cardiovascular: Negative for chest pain, palpitations, and edema, Respiratory: Negative for shortness of breath, cough, wheezing, and pleuritic chest pain, Abdomen/GI: Positive for vomiting. MS/Extremity: Negative for injury and deformity, Skin: Negative for injury, rash, and discoloration, Neuro: Negative for headache, weakness, numbness, tingling, and seizure, Exam: :44 Constitutional: This is a well developed, well nourished patient who is awake, alert, rn and in no acute distress. Head/Face: Normocephalic, atraumatic. ENT: Mild pharyngeal erythema, no exudate, no stridor. Neck: Trachea midline, no masses palpated, and no cervical lymphadenopathy. Supple, full range of motion without nuchal rigidity, or vertebral point tenderness. No Meningismus. Cardiovascular: Regular rate and rhythm. No pulse deficits. Respiratory: No increased work of breathing, no retractions or nasal flaring. Abdomen/GI: Soft, non-tender Neuro: Awake and alert, GCS 15 Vital Signs: 09:24 BP 171 / 120; Pulse 85; Resp 17; Temp 97.9; Pulse Ox 99% ; Weight 81.65 kg; Height 5 ll1 ft. 11 in. ; Pain 3/10; 09:24 Body Mass Index 25.10 (81.65 kg, 180.34 cm) ll1 09:24 Pain Scale: Adult ll1 MDM: 09:19 Patient medically screened. rn 10:56 Differential diagnosis: group A strep tonsillitis, influenza, laryngitis, pharyngitis, rn upper respiratory infection, viral syndrome. Data reviewed: vital signs, nurses notes, lab test result(s), and as a result, I will discharge patient. Counseling: I had a detailed discussion with the patient and/or guardian regarding the historical points, exam findings, and any diagnostic results supporting the discharge/admit diagnosis, the need for outpatient follow up, to return to the emergency department if symptoms worsen or persist or if there are any questions or concerns that arise at home. 10:57 Care significantly affected by the following chronic conditions: Hypertension. Special rn discussion: I have referred the patient to see his PCP for further evaluation of high blood pressure. I discussed with the patient/guardian in detail that at this point there is no indication for admission to the hospital. It is understood, however, that if the symptoms persist or worsen the patient needs to return immediately for re-evaluation. Based on the history and exam findings, there is no indication for further emergent testing or inpatient evaluation. I discussed with the patient/guardian the need to see the primary care provider for further evaluation of the symptoms. ED course: Negative swabs, will send home with antibiotics and PCP follow-up.. 10/08 09:28 Order name: Strep rn 10/08 09:28 Order name: SARS RAPID; Complete Time: 10:45 rn 10/08 09:28 Order name: Flu; Complete Time: 10:45 rn 10/08 10:29 Order name: Throat Culture EDMS Administered Medications: 09:57 Drug: Ondansetron Oral Disintegrating Tablet Oral Disintegrating Tablet 4 mg PO once hb Route: PO; Disposition Summary: 10/09/23 10:58 Discharge Ordered Notes: Location: Home rn Problem: new rn Symptoms: have improved rn Condition: Stable rn Diagnosis - Acute pharyngitis, unspecified rn Followup: rn - With: Private Physician - When: As needed - Reason: Recheck today's complaints, Re-evaluation by your physician Discharge Instructions: - Discharge Summary Sheet rn - Pharyngitis rn - Sore Throat rn Forms: - Medication Reconciliation Form rn - Antibiotic design engineering intern - Prescription Opioid Use rn - Patient Portal Instructions rn - Leadership Thank You Letter rn - Work release form Prescriptions: - Augmentin 875-125 mg Oral Tablet - take 1 tablet ORAL route every 12 hours for 10 days; 20 tablet; Refills: 0, rn Product Selection Permitted Signatures: Dispatcher [employer] EDMS Christopher Quiroz MD MD rn Baxter, Heather RN RN Kanchan Stoner RN RN ll1
--- NOTE | 2023-10-09 10:58 | ER ---
Nurse's Notes [facility] Name: Pedro Wright Age: 28 yrs Sex: Male : 1995 Arrival Date: 10/09/2023 Time: 09:13 Bed 10 Private MD: Diagnosis: Acute pharyngitis, unspecified Presentation: 10/08 09:24 Chief complaint:. Coronavirus screen: Client denies travel out of the [place] in the last ll1 14 days. Coronavirus screen: fatigue, headache, sore throat. Ebola Screen: Patient denies travel to an Ebola-affected area in the 21 days before illness onset. Initial Sepsis Screen: Does the patient meet any 2 criteria? No. Patient's initial sepsis screen is negative. Does the patient have a suspected source of infection? No. Patient's initial sepsis screen is negative. Risk Assessment: Do you want to hurt yourself or someone else? Patient reports no desire to harm self or others. Onset of symptoms was October 07, 2023. 09:24 Method Of Arrival: Ambulatory 1 09:24 Acuity: PEDRO 3 ll1 Triage Assessment: 09:25 General: Appears uncomfortable, Behavior is calm, cooperative, appropriate for age. ll1 General: Reports fatigue for. EENT: Reports pain when swallowing. GI: Reports nausea, vomiting, at night. Historical: - Allergies: 09:20 No Known Drug Allergies; hb - Home Meds: 09:23 Lisinopril Oral [Active]; ll1 - PMHx: 09:20 ADD/ADHD; hb 09:23 Hypertensive disorder; ll1 - PSHx: 09:20 ear; hb - Immunization history:: Adult Immunizations up to date. - Infectious Disease History:: Denies. - Social history:: Smoking status: Patient reports the use of cigarette tobacco products, smokes one-half pack cigarettes per day, Reported history of juuling and/or vaping. - Family history:: not pertinent. - Hospitalizations: : No recent hospitalization is reported. Screenin:58 [facility] ED Fall Risk Assessment (Adult) History of falling in the last 3 months, hb including since admission No falls in past 3 months (0 pts) Confusion or Disorientation No (0 pts) Intoxicated or Sedated No (0 pts) Impaired Gait No (0 pts) Mobility Assist Device Used No (0 pt) Altered Elimination No (0 pt) Score/Fall Risk Level 0 - 2 = Low Risk Oriented to surroundings, Maintained a safe environment, Educated pt \T\ family on fall prevention, incl call for assistance when getting out of bed. Abuse screen: Denies threats or abuse. Denies injuries from another. Nutritional screening: No deficits noted. Tuberculosis screening: No symptoms or risk factors identified. Assessment: 09:57 General: Appears in no apparent distress. Behavior is calm, cooperative. Pain: Pain hb currently is 3 out of 10 on a pain scale. Neuro: Level of Consciousness is awake, alert, obeys commands, Oriented to person, place, time, situation. Cardiovascular: Patient's skin is warm and dry. Respiratory: Respiratory effort is even, unlabored, Respiratory pattern is regular, symmetrical. EENT: Reports sore throat, sinus congestion. 11:35 Reassessment: Patient appears in no apparent distress at this time. Patient and/or hb family updated on plan of care and expected duration. Pain level reassessed. Patient is alert, oriented x 3, equal unlabored respirations, skin warm/dry/pink. Vital Signs: 09:24 BP 171 / 120; Pulse 85; Resp 17; Temp 97.9; Pulse Ox 99% ; Weight 81.65 kg; Height 5 ll1 ft. 11 in. ; Pain 3/10; 09:24 Body Mass Index 25.10 (81.65 kg, 180.34 cm) ll1 09:24 Pain Scale: Adult ll1 ED Course: 09:15 Patient arrived in ED. im 09:19 Christopher Quiroz MD is Attending Physician. rn 09:20 Arm band placed on. hb 09:25 Triage completed. ll1 09:57 Patient has correct armband on for positive identification. Bed in low position. Call hb light in reach. Provided Education on: use of call light, bathroom location, tests and result times. Warm blanket given. 09:57 Flu Sent. hb 09:57 Strep Sent. hb 09:57 SARS RAPID Sent. hb 09:58 No provider procedures requiring assistance completed. Patient did not have IV access hb during this emergency room visit. Administered Medications: :57 Drug: Ondansetron Oral Disintegrating Tablet Oral Disintegrating Tablet 4 mg PO once hb Route: PO; Medication: :58 VIS not applicable for this client. hb Outcome: 10:58 Discharge ordered by . rn 11:40 Discharged to home ambulatory, hb 11:40 Condition: stable 11:40 Discharge instructions given to patient, Instructed on discharge instructions, follow up and referral plans. medication usage, Demonstrated understanding of instructions, follow-up care, medications, Prescriptions given X 1, 11:42 Patient left the ED. hb Signatures: Christopher Quiroz MD MD rn Baxter, Heather, RN RN hb Lewis, Lynsay, RN RN ll1 [facility] [place] [facility] Corrections: (The following items were deleted from the chart) 09:28 09:24 BP 171 / 120; Pulse 85bpm; Resp 17bpm; Pulse Ox 99%; Temp 97.9F; ll1 ll1 12:20 11:55 Reassessment: Patient appears in no apparent distress at this time. Patient hb and/or family updated on plan of care and expected duration. Pain level reassessed. Patient is alert, oriented x 3, equal unlabored respirations, skin warm/dry/pink. hb
[2023-10-09 12:08] VITALS: BP 171/120; TEMP 97.9; O2SAT 99
== END 2023-10-09 11:42 | disposition home or self-care (01) ==
LOC: ER 09:13
DX: J02.9 Acute pharyngitis, unspecified (principal); Z11.52 Encounter for screening for COVID-19
CPT/HCPCS: 36415; 87070; 87081; 87804; 87811; 99283; Q0162